=== PATIENT | female | born 1940 | race Caucasian/White ===

== ENCOUNTER → 2017-10-10 | Outpatient (CLI) | payer OTHER ==
[2012-10-21 08:24] VITALS: BP 161/84
--- NOTE | 2017-10-10 11:56 | MG ---
HISTORY: SCREENING Comparison: 10/04/2016 FINDINGS: Bilateral CC and MLO projections of the right and left breast were obtained. Scattered fibroglandula r tissue is seen to be present. No significant architectural distortion, mass or clustered microcalc ifications can be observed to suggest malignancy. No skin thickening or nipple retraction is appreci ated. No pathological lymphadenopathy can be identified. Benign-appearing calcifications scattered throughout the right and left breasts are observed. IMPRESSION: NO RADIOGRAPHIC EVIDENCE OF MALIGNANCY. ACR CATEGORY: 2 - benign findings. FOLLOW-UP EXAM 1 YEAR. Diagnostic CAD was utilized and reviewed. * 0 (ZERO) - ASSESSMENT INCOMPLETE; ADDITIONAL IMAGING IS NEEDED. * 1/ (ONE) - NEGATIVE. * 2/II (TWO) - BENIGN FINDINGS. * 3/III (THREE) - PROBABLY BENIGN FINDING; SHORT INTERVAL FOLLOW-UP SUGGESTED. * 4/IV (FOUR) - SUSPICIOUS ABNORMALITY; BIOPSY SHOULD BE CONSIDERED. * 5/V - HIGHLY SUSPICIOUS OF MALIGNANCY; BIOPSY SHOULD BE PERFORMED. A NEGATIVE X-RAY REPORT SHOULD NOT DELAY BIOPSY IF A DOMINANT OR CLINICALLY SUSPICIOUS MASS IS PRESENT; 4 TO 8 PERCENT OF CANCERS ARE NOT IDENTIFIED BY X-RAY. A NEGA TIVE REPORT MAY REINFORCE THE CLINICAL IMPRESSION. ADENOSIS AND DENSE BREASTS MAY OBSCURE AN UNDERLY ING NEOPLASM. Reported By:
== END ==
LOC: RAD 08:41
PROVIDERS: ATTEND Specialist
DX: Z12.31 Encounter for screening mammogram for malignant neoplasm of breast (principal)
CPT/HCPCS: 77067

== ENCOUNTER 2024-07-24 09:11 | Inpatient (IN) ==
--- NOTE | 2024-07-24 09:25 | DR.DIZZY ---
HPI Time seen Time Seen by Provider: 07/24/24 09:17 HPI Comment HPI Comment: Patient with complaint of feeling sick for the last week, some decreased appetite and tripped and fell yesterday landing on her left side. Patient states she had some mild hip pain in the area of her left buttock. Context Stroke Symptoms: None PMH PMH Past Medical History: Dyslipidemia and Hypertension Past Surgical History: Yes Surgical History: Hysterectomy Family History Family Medical History: Diabetes Mellitus, Cancer, [place], Coronary Artery Disease, Heart Failure, Sudden Cardiac and Hypertension Social History Do you use any recreational Drugs:: No ROS Review of Systems Constitutional: See HPI; negative Fever, Weakness or Fatigue Eyes: No Symptoms Reported ENTM: No Symptoms Reported Respiratoy: No Symptoms Reported Cardiovascular: No Symptoms Reported Gastrointestinal/Abdominal: No Symptoms Reported Genitourinary: No Symptoms Reported Neurological: No Symptoms Reported Musculoskeletal: See HPI Integumentary: No Symptoms Reported Hematologic/Lymphatic: No Symptoms Reported Endocrine: No Symptoms Reported Psychiatric: No Symptoms Reported All Other Systems: Reviewed and Negative PE Vital Signs Vitals: Vital Signs Temperature 98.1 F Pulse Rate 70 Pulse Rate 71 Pulse Rate 69 Pulse Rate 73 Pulse Rate 70 Pulse Rate 70 Pulse Rate 69 Pulse Rate 70 Pulse Rate 69 Pulse Rate 69 Pulse Rate 71 Pulse Rate 69 Pulse Rate 68 Pulse Rate 68 Pulse Rate 69 Pulse Rate 72 Pulse Rate 70 Pulse Rate 69 Pulse Rate 68 Pulse Rate 66 Pulse Rate 63 Pulse Rate 62 Pulse Rate 62 Pulse Rate 63 Pulse Rate 63 Pulse Rate 62 Pulse Rate 64 Pulse Rate 65 Pulse Rate 65 Pulse Rate 66 Pulse Rate 67 Pulse Rate 70 Pulse Rate 71 Respiratory Rate 20 Respiratory Rate 18 Blood Pressure 178/77 Blood Pressure 170/74 Blood Pressure 168/72 Blood Pressure 186/74 Blood Pressure 175/79 Blood Pressure 174/77 Blood Pressure 161/72 Blood Pressure 162/72 Blood Pressure 163/72 Blood Pressure 166/74 Blood Pressure 168/77 Blood Pressure 168/74 Blood Pressure 169/74 Blood Pressure 171/76 Blood Pressure 143/59 Blood Pressure 149/68 Blood Pressure 154/62 Blood Pressure 171/77 Blood Pressure 180/79 Blood Pressure 185/74 Blood Pressure 183/81 Blood Pressure 206/84 Blood Pressure 184/77 Blood Pressure 184/79 O2 Sat by Pulse Oximetry 94 O2 Sat by Pulse Oximetry 95 O2 Sat by Pulse Oximetry 95 O2 Sat by Pulse Oximetry 94 O2 Sat by Pulse Oximetry 94 O2 Sat by Pulse Oximetry 94 O2 Sat by Pulse Oximetry 94 O2 Sat by Pulse Oximetry 94 O2 Sat by Pulse Oximetry 95 O2 Sat by Pulse Oximetry 91 O2 Sat by Pulse Oximetry 96 O2 Sat by Pulse Oximetry 97 O2 Sat by Pulse Oximetry 96 O2 Sat by Pulse Oximetry 96 O2 Sat by Pulse Oximetry 95 O2 Sat by Pulse Oximetry 97 O2 Sat by Pulse Oximetry 97 O2 Sat by Pulse Oximetry 96 O2 Sat by Pulse Oximetry 95 O2 Sat by Pulse Oximetry 97 O2 Sat by Pulse Oximetry 97 O2 Sat by Pulse Oximetry 95 O2 Sat by Pulse Oximetry 96 O2 Sat by Pulse Oximetry 94 O2 Sat by Pulse Oximetry 95 O2 Sat by Pulse Oximetry 94 O2 Sat by Pulse Oximetry 96 O2 Sat by Pulse Oximetry 95 O2 Sat by Pulse Oximetry 93 O2 Sat by Pulse Oximetry 97 O2 Sat by Pulse Oximetry 88 O2 Sat by Pulse Oximetry 84 O2 Sat by Pulse Oximetry 83 General Limitations: No Limitations General Appearance: Alert and In No Apparent Distress Head Head Exam: Normal Inspection Eyes Eye exam: Normal Appearance ENT ENT Exam: Normal Exam, Normal Oropharynx and Normal External Ear Exam Neck Neck Exam: Normal Inspection and Full ROM Chest Chest Inspection: Normal Inspection Respiratory Respiratory Exam: Normal Lung Sounds Bilat Cardiovascular Cardiovascular Exam: Regular Rate and Normal Rhythm Abdominal Exam Abdominal Exam: Normal Inspection, Normal Bowel Sounds and Soft Rectal Rectal Exam: Deferred Extremeties Extremities Exam: Normal Inspection and Full ROM Back Back Exam: Normal Inspection and Full ROM Neurologic Neurological Exam: Alert and Oriented X3 Psychiatric Psychiatric Exam: Normal Affect and Normal Mood Skin Skin Exam: Warm, Dry, Intact and Normal Color ROR Labs Reviewed 07/24/24 09:40 07/24/24 09:40 Laboratory: WBC 7.0 X10^3/uL (3.6-10.0) 07/24/24 09:40 RBC 3.31 X10^6/uL (3.5-5.4) L 07/24/24 09:40 Hgb 13.5 g/dL (12.0-16.0) 07/24/24 09:40 Hct 38.1 % (36.0-47.0) 07/24/24 09:40 MCV 115.1 fL (80.0-100.0) H 07/24/24 09:40 MCH 40.7 pg (27.0-34.0) H 07/24/24 09:40 MCHC 35.4 g/dL (33.0-35.0) H 07/24/24 09:40 RDW 15.3 % (11.6-16.5) 07/24/24 09:40 Plt Count 266 X10^3/uL (150.0-450.0) 07/24/24 09:40 Plt Count Comment Adequate (ADEQUATE) 07/24/24 09:40 MPV 7.4 fL (7.4-11.0) 07/24/24 09:40 Neut % (Auto) 79.7 % (42.0-75.0) H 07/24/24 09:40 Lymph % (Auto) 8.8 % (21.0-51.0) L 07/24/24 09:40 [place] % (Auto) 9.0 % (0.0-13.0) 07/24/24 09:40 Eos % (Auto) 1.5 % (0.9-2.9) 07/24/24 09:40 Baso % (Auto) 1.0 % (0.2-1.0) 07/24/24 09:40 Neut # (Auto) 5.6 x10^3/uL (2.2-4.8) H 07/24/24 09:40 Lymph # (Auto) 0.6 X10^3/uL (1.3-2.9) L 07/24/24 09:40 [place] # (Auto) 0.6 x10^3/uL (0.3-0.8) 07/24/24 09:40 Eos # (Auto) 0.1 x10^3/uL (0.0-0.2) 07/24/24 09:40 Baso # (Auto) 0.1 X10^3/uL (0.0-0.1) 07/24/24 09:40 Absolute Nucleated RBC 0.2 /100WBC 07/24/24 09:40 Plt Morphology Comment Normal (NORMAL) 07/24/24 09:40 RBC Morphology Abnormal (NORMAL) A 07/24/24 09:40 Macrocytosis 3+ A 07/24/24 09:40 D-Dimer 3.57 ug/ml (0.0-0.57) H 07/24/24 09:40 Sample Site Rrad 07/24/24 09:29 ABG pH 7.450 (7.35-7.45) 07/24/24 09:29 ABG pCO2 27.0 mmHg (35.0-45.0) L 07/24/24 09: ABG pO2 43.0 mmHg (80.0-100.0) L* 07/24/24 09:29 ABG HCO3 18.8 mmol/L (22-26) L 07/24/24 09:29 ABG O2 Saturation 81.0 % (90-100) L* 07/24/24 09: ABG Base Excess -3.9 mmol/L (-2.0-2.0) L 07/24/24 09: Richie Test Pos 07/24/24 09: A-a Gradient 73.0 mmHg 07/24/24 09: FiO2 21.0 07/24/24 09:29 Blood Gas Comments Pt adrianna well. kg 07/24/24 09:29 Sodium 138 mmol/L (136-145) 07/24/24 09:40 Corrected Sodium 138 mmol/L (136-145) 07/24/24 09:40 Potassium 3.2 mmol/L (3.5-5.1) L 07/24/24 09:40 Chloride 104 mmol/L (98-107) 07/24/24 09:40 Carbon Dioxide 19.4 mmol/L (21-32) L 07/24/24 09:40 BUN 15 mg/dL (7-18) 07/24/24 09:40 Creatinine 0.96 mg/dL (0.55-1.02) 07/24/24 09:40 Est GFR (MDRD) Af Amer > 60 (>60) 07/24/24 09:40 Est GFR (MDRD) Non-Af 59 (>60) 07/24/24 09:40 Glucose 113 mg/dL (65-99) H 07/24/24 09:40 Lactic Acid 0.5 mmol/L (0.4-2.0) 07/24/24 14:23 Calcium 9.3 mg/dL (8.5-10.1) 07/24/24 09:40 Corrected Calcium TNP 07/24/24 09:40 Magnesium 1.8 mg/dL (2.0-2.9) L 07/24/24 09:40 Total Bilirubin 0.80 mg/dL (0.2-1.0) 07/24/24 09:40 AST 23 Units/L (15-37) 07/24/24 09:40 ALT 8 Units/L (12-78) L 07/24/24 09:40 Alkaline Phosphatase 113 Units/L (46-116) 07/24/24 09:40 Total Protein 7.6 g/dL (6.4-8.2) 07/24/24 09:40 Albumin 3.5 g/dL (3.4-5.0) 07/24/24 09:40 Globulin 4.1 g/dL (2.5-4.5) 07/24/24 09:40 Albumin/Globulin Ratio 0.9 Ratio (1.1-2.1) L 07/24/24 09:40 Amylase 20 Units/L (25-115) L 07/24/24 09:40 Lipase 38 Units/L (16-77) 07/24/24 09:40 Specimen Type Clean catch urine 07/24/24 12:09 Urine Color Yellow (YELLOW) 07/24/24 12:09 Urine Appearance Clear (CLEAR) 07/24/24 12:09 Urine pH 6.0 (5.0 - 8.0) 07/24/24 12:09 Ur Specific [place] 1.010 (1.000-1.030) 07/24/24 12:09 Urine Protein 2+ (NEGATIVE) 07/24/24 12:09 Urine Glucose (UA) Negative (NEGATIVE) 07/24/24 12:09 Urine Ketones Negative (NEGATIVE) 07/24/24 12:09 Urine Blood Negative (NEGATIVE) 07/24/24 12:09 Urine Nitrite Negative (NEGATIVE) 07/24/24 12:09 Urine Bilirubin Negative (NEGATIVE) 07/24/24 12:09 Urine Urobilinogen Normal (NORMAL) 07/24/24 12:09 Ur Leukocyte Esterase 1+ (NEGATIVE) 07/24/24 12:09 Urine RBC None seen /HPF (0-3) 07/24/24 12:09 Urine WBC 0-2 /HPF (0-5) 07/24/24 12:09 Ur Squamous Epith Cells Rare /HPF (NEGATIVE) 07/24/24 12:09 Urine Bacteria Negative /HPF (NEGATIVE) 07/24/24 12:09 Ur Culture Indicated? No/not indicated 07/24/24 12:09 Opioid Opioid Risk Tool Age (Sebastian box if 16-45): No History of Preadolescent Sexual Abuse: No Total: 0 Total Score Risk Category: Low Risk Copyright: Nicola CLINE predicting aberrant behaviors Discharge Plan Diagnosis Discharge Problem: Pneumonia, Hypoxia, Hypomagnesemia Discharge Plan Patient Disposition: ADMITTED INPATIENT Condition: Stable Prescriptions: No Action gemfibrozil 600 MG tablet 600 mg PO BID hydroxyurea 500 mg capsule 500 mg PO BID bisoprolol-hydrochlorothiazide 10-6.25 mg tablet 1 tab PO QDAY ondansetron HCl 4 mg tablet 4 mg PO Q8H PRN Rx Instructions: TAKE 30 MINUTES PRIOR TO GEMFIBROZIL amitriptyline 50 mg tablet 50 mg PO QPM lorazepam 0.5 mg tablet 0.5 mg PO TID PRN Rx Instructions: TAKE 30 MINUTES PRIOR TO GEMFIBROZIL amlodipine 10 mg tablet 10 mg PO QDAY nitrofurantoin monohyd/m-cryst 100 mg capsule 100 mg PO DAILY simvastatin 40 mg tablet 40 mg PO QPM pantoprazole 40 mg tablet,delayed release (DR/EC) 40 mg PO QDAY Health Concerns: Post Hospitalization: new medications and changes needed to prevent readmission or further decline. Pt educated and given instructions on all concerns. Plan of Treatment: Continue with present treatment and follow up plan. Pt is to keep follow up appointment as instructed and take medications as ordered. Orders to Discharge Patient Discharge Orders: Transfer (Routine); Ordered 07/24/24 Ordered By: Miki Mayo Instructions Stand Alone Forms: Post Hospital Follow Up Care
[2024-07-24 09:31] VITALS: BMI 24.2
[2024-07-24 09:34] LABS: ABG BASE EXCESS -3.9 mmol/L (-2.0-2.0); ABG HCO3 18.8 mmol/L (22-26)
[2024-07-24 09:36] LABS: ABG ALLEN TEST Pos
[2024-07-24] MEDS: ZOFRAN INJ 4 MG VIAL IVP ONE ×2 (09:48→16:37)
[2024-07-24 10:01] LABS: BASOPHILS # (AUTO) 0.1 X10^3/uL (0.0-0.1); EOSINOPHILS # (AUTO) 0.1 x10^3/uL (0.0-0.2); EOSINOPHILS % (AUTO) 1.5 % (0.9-2.9); HEMATOCRIT 38.1 % (36.0-47.0); HEMOGLOBIN 13.5 g/dL (12.0-16.0); LYMPHOCYTES # (AUTO) 0.6 X10^3/uL (1.3-2.9); LYMPHOCYTES % (AUTO) 8.8 % (21.0-51.0); MEAN CORPUSCULAR HEMOGLOBIN 40.7 pg (27.0-34.0); MEAN CORPUSCULAR HGB CONC 35.4 g/dL (33.0-35.0); MEAN CORPUSCULAR VOLUME 115.1 fL (80.0-100.0); MEAN PLATELET VOLUME 7.4 fL (7.4-11.0); MONOCYTES # (AUTO) 0.6 x10^3/uL (0.3-0.8); NEUTROPHILS # (AUTO) 5.6 x10^3/uL (2.2-4.8); NEUTROPHILS % (AUTO) 79.7 % (42.0-75.0); PLATELET COUNT 266 X10^3/uL (150.0-450.0); RED BLOOD COUNT 3.31 X10^6/uL (3.5-5.4); RED CELL DISTRIBUTION WIDTH 15.3 % (11.6-16.5)
[2024-07-24 10:06] LABS: PLATELET MORPHOLOGY COMMENT NORMAL (NORMAL)
[2024-07-24 10:09] LABS: BLOOD UREA NITROGEN 15 mg/dL (7-18); CALCIUM 9.3 mg/dL (8.5-10.1); CARBON DIOXIDE 19.4 mmol/L (21-32); CHLORIDE 104 mmol/L (98-107); COR NA(FOR HYPERGLY) 138 mmol/L (136-145); CREATININE 0.96 mg/dL (0.55-1.02); GLUCOSE 113 mg/dL (65-99); POTASSIUM 3.2 mmol/L (3.5-5.1); SODIUM 138 mmol/L (136-145); eGFR NON BLACK RACES 59 (>60)
[2024-07-24 10:25] LABS: ALBUMIN 3.5 g/dL (3.4-5.0); ALKALINE PHOSPHATASE 113 Units/L (46-116); AMYLASE 20 Units/L (25-115); ASPARTATE AMINO TRANSFERASE 23 Units/L (15-37); LIPASE 38 Units/L (16-77); TOTAL PROTEIN 7.6 g/dL (6.4-8.2)
[2024-07-24 10:35] LABS: ALANINE AMINOTRANSFERASE 8 Units/L (12-78); MAGNESIUM 1.8 mg/dL (2.0-2.9)
[2024-07-24] MEDS: APRESOLINE INJ 20 MG VIAL IVP ONE (10:49)
[2024-07-24] MEDS: MAG-OX TAB PO ONE ×2 (12:02→20:57)
[2024-07-24] MEDS: K-DUR TAB 20 MEQ PO ONE ×3 (12:02→20:58)
[2024-07-24 12:42] LABS: BILIRUBIN,URINE NEGATIVE (NEGATIVE); BLOOD/HEMOGLOBIN,URINE NEGATIVE (NEGATIVE); GLUCOSE, URINE NEGATIVE (NEGATIVE); KETONES,URINE NEGATIVE (NEGATIVE); LEUKOCYTE ESTERASE ,URINE 1+ (NEGATIVE); NITRITES,URINE NEGATIVE (NEGATIVE); PROTEIN,URINE 2+ (NEGATIVE); UROBILINOGEN,URINE NORMAL (NORMAL)
[2024-07-24 12:45] LABS: APPEARANCE,URINE CLEAR (CLEAR); COLOR,URINE YELLOW (YELLOW)
[2024-07-24 13:00] LABS: BACTERIA,URINE NEGATIVE /HPF (NEGATIVE); RBC,URINE NONE SEEN /HPF (0-3); SQUAMOUS EPITHELIAL CELL,UR RARE /HPF (NEGATIVE)
--- NOTE | 2024-07-24 13:15 | RAD ---
EXAM: HIP, LEFT two-view HISTORY: S/P FALL, C/O LEFT HIP PAIN ; COMPARISON: None FINDINGS: The visualized pelvic ring is intact. No acute fracture or dislocation of the hip. No significant hip arthrosis. IMPRESSION: No acute fracture or dislocation. THIS IS AN ELECTRONICALLY VERIFIED FINAL REPORT 07/24/2024 1:11 PM - Electronically signed by Stephen Gilman MD
--- NOTE | 2024-07-24 13:31 | RAD ---
EXAM:PELVISHISTORY:S/P FALL, C/O LEFT HIP PAIN ;COMPARISON:Left hip same dayFINDINGS:The pelvic ring appears intact. The SI joints are symmetric. The visualized portions of the right and left hip are intact. No significant soft tissue abnormality.IMPRESSION:No acute fracture.THIS IS AN ELECTRONICALLY VERIFIED FINAL [id number]/24/2024 1:27 PM - Electronically signed by Stephen Gilman MD
--- NOTE | 2024-07-24 13:33 | RAD ---
EXAM:CHEST, 1 VIEWHISTORY:HYPOXIA;COMPARISON:None FINDINGS:The cardiomediastinal silhouette is normal in size.Right upper lobe airspace opacities. Nonspecific left lower lobe nodularity. No pneumothorax or effusion.No acute osseous abnormality.IMPRESSION:Airspace opacities which may reflect pneumonia. Recommend follow-up to resolution.THIS IS AN ELECTRONICALLY VERIFIED FINAL [id number]/24/2024 1:30 PM - Electronically signed by Stephen Gilman MD
[2024-07-24] MEDS: LEVAQUIN PREMIX IV 750 MG 750 MG/150 ML BAG IV ONE (14:41)
--- NOTE | 2024-07-24 16:31 | CT ---
EXAM: CTA, CHEST HISTORY: DYSPNEA, ELEV. D-DIMER; COMPARISON: None. TECHNIQUE: Following the intravenous administration of iodinated contrast, spiral CT imaging was performed throu gh the chest and axial, coronal, and sagittal CT images were generated. Multi planar 3D MIP images we re also generated. FINDINGS: Heart size is grossly normal. The main pulmonary artery measures 3.6 cm in diameter and this indicat es pulmonary artery hypertension. There is excellent enhancement in the pulmonary circulation and no pulmonary embolus. The ascending aorta measures 3.7 cm in diameter. There are reactive sized media stinal lymph nodes. There is non-specific enlargement of the right thyroid lobe suggestive of a goit er. The airways are grossly clear. There is interstitial prominence throughout the lungs suggestive of edema or interstitial lung disease as well as some stranding suggestive of atelectasis or scarrin g. There are small bilateral pleural effusions. There are 2 non-specific low-density liver lesions with the largest in the right hepatic lobe measuring up to 3.0 cm. The gallbladder is distended and there is questionably some stone material in the gallbladder. Spleen is normal. IMPRESSION: 1. Negative for pulmonary embolus although there is pulmonary artery hypertension. 2. Non-specific interstitial opacity and basilar stranding suggestive of mixed edema and atelectasis with small pleural effusions. 3. 2 non-specific low-density liver lesions. Consider correlation with a ultrasound. 4. Questionable cholelithiasis. THIS IS AN ELECTRONICALLY VERIFIED FINAL REPORT 07/24/2024 4:28 PM - Electronically signed by Cooper Balderrama MD
[2024-07-24] MEDS: TORADOL 30 MG VIAL IVP ONE (16:38)
[2024-07-24] MEDS ORDERED: CONSULT PHARMACY - POTASSIUM & MAGNESIUM XX SCH (18:00)
[2024-07-24] MEDS: MAG-OX TAB ONE (18:09)
[2024-07-24] MEDS: OMNIPAQUE 350 mg/mL 100 mL BTL 100 ML ONE (18:10)
[2024-07-24] MEDS: NS 1,000 ML IV 1,000 ML IV SCH (18:27)
[2024-07-24] MEDS: PULMICORT NEB TX 0.5 MG NEB SCH (19:38)
[2024-07-24] MEDS: DUONEB 0.5 MG/3 MG (3 mL) NEB SCH (19:39)
[2024-07-24] MEDS: ZOCOR TAB 40 MG PO SCH (21:34)
[2024-07-24] MEDS: ELAVIL PO SCH (21:34)
[2024-07-24] MEDS: HYDREA PO SCH (21:38)
[2024-07-24] MEDS: MACRODANTIN 50 MG CAP PO SCH (21:40)
[2024-07-25] MEDS: LOPID PO SCH (05:36)
[2024-07-25 05:40] LABS: HEMOGLOBIN 11.5 g/dL (12.0-16.0); RED CELL DISTRIBUTION WIDTH 15.3 % (11.6-16.5); WHITE BLOOD COUNT 5.7 X10^3/uL (3.6-10.0)
[2024-07-25 05:48] LABS: BASOPHILS % (AUTO) 0.7 % (0.2-1.0); EOSINOPHILS # (AUTO) 0.1 x10^3/uL (0.0-0.2); EOSINOPHILS % (AUTO) 2.3 % (0.9-2.9); HEMATOCRIT 32.8 % (36.0-47.0); LYMPHOCYTES # (AUTO) 0.5 X10^3/uL (1.3-2.9); LYMPHOCYTES % (AUTO) 8.2 % (21.0-51.0); MEAN CORPUSCULAR HEMOGLOBIN 40.7 pg (27.0-34.0); MEAN CORPUSCULAR VOLUME 116.3 fL (80.0-100.0); MEAN PLATELET VOLUME 7.6 fL (7.4-11.0); MONOCYTES # (AUTO) 0.5 x10^3/uL (0.3-0.8); MONOCYTES % (AUTO) 8.8 % (0.0-13.0); NEUTROPHILS # (AUTO) 4.6 x10^3/uL (2.2-4.8); PLATELET COUNT 230 X10^3/uL (150.0-450.0); RED BLOOD COUNT 2.82 X10^6/uL (3.5-5.4)
[2024-07-25 05:52] LABS: ALANINE AMINOTRANSFERASE 9 Units/L (12-78); ALBUMIN 2.8 g/dL (3.4-5.0); ALKALINE PHOSPHATASE 90 Units/L (46-116); ASPARTATE AMINO TRANSFERASE 16 Units/L (15-37); BLOOD UREA NITROGEN 14 mg/dL (7-18); CALCIUM 8.3 mg/dL (8.5-10.1); CARBON DIOXIDE 18.9 mmol/L (21-32); CHLORIDE 110 mmol/L (98-107); COR CA(FOR HYPOALB) 9.3 mg/dL (8.5-10.1); CREATININE 0.92 mg/dL (0.55-1.02); GLUCOSE 85 mg/dL (65-99); POTASSIUM 3.9 mmol/L (3.5-5.1); SODIUM 142 mmol/L (136-145); TOTAL PROTEIN 6.3 g/dL (6.4-8.2); eGFR NON BLACK RACES > 60 (>60)
[2024-07-25 07:22] LABS: PLATELET MORPHOLOGY COMMENT NORMAL (NORMAL)
[2024-07-25] MEDS ORDERED: CONSULT PHARMACY - POTASSIUM & MAGNESIUM XX SCH (08:00)
[2024-07-25] MEDS: MAG-OX TAB PO SCH (08:29)
[2024-07-25] MEDS: ULTRAM PO PRN (08:29)
[2024-07-25] MEDS: ZEBETA TAB 5 MG PO SCH (08:30)
[2024-07-25] MEDS: PROTONIX TAB 40 MG PO SCH (08:30)
[2024-07-25] MEDS: NORVASC TAB 10 MG PO SCH (08:30)
[2024-07-25] MEDS: ZOFRAN TAB 4 MG PO PRN (08:30)
[2024-07-25] MEDS: HYDROCHLOROTHIAZIDE 25 MG TAB PO SCH (08:31)
[2024-07-25] MEDS: LEVAQUIN PREMIX IV 750 MG 750 MG/150 ML BAG IV SCH (08:31)
[2024-07-25] MEDS ORDERED: PATIENT'S HOME MEDICATION PO SCH (09:00)
[2024-07-25] MEDS: NORCO 5/325 MG TAB PO PRN (09:35)
--- NOTE | 2024-07-25 10:21 | DR.H&P ---
H&P History & Physical for Day of: H&P Date: 07/25/24 Chief Complaint Chief Complaint: sob, weakness, poor oral intake History of Present Illness History of Present Illness: Ms Stein is a 84y/o female with a PMH of HTN , HLD, GERD and polycythemia vera presents with weakness, SOB and poor oral intake. She has been sick for about a week. She also had some nausea. She had a fall yesterday. ER work up showed ABG with hypoxia, no acute fracture, UA neg. CXR concerning for pneumonia. D-dimer was elevated so CTA was done which was neg for PE, did show opacity, bibasilar stranding along with pleural effusions. Flu/COVID neg. She was started on IV fluids and antibiotics. She is currently on 4L NC. She reports dry cough. CTA also showed Cholelithiasis. Patient reports seeing surgeon in [place] 3 months ago and had US done. She was told she does not need gallbladder surgery at this time. Denies abdominal pain. Labs/imaging reviewed: -WBC 5.7 Hgb 11.5 K 3.9 BUN/Cr 14/0.92 D-dimer 3.57 -AB.45/27/43/18 -CXR and CTA reviewed Plan: continue to monitor on med-surg. Wean O2 as tolerated to keep sats > 90%, continue nebs, pulmicort. Continue IS. Continue hydration and IV antibiotics. Follow AIT results and pending cultures. Resume home medications. Replace electrolytes as needed. PT/OT as tolerated. Monitor AM labs/imaging. Past Medical History Past Medical History: Dyslipidemia and Hypertension Past Surgical History Surgical History: Hysterectomy Family History Family Medical History: Cancer and Heart Failure Social History Does patient currently use any type of tobacco product: No Have you used tobacco products in the last 12 months: No Type of Tobacco Use: None Does any household member use tobacco: No Alcohol Use: None Drug Use: None Medications Home Medications: Home Medications Medication Instructions Recorded Confirmed Type gemfibrozil 600 mg tablet 600 mg PO BID 10/21/12 07/24/24 History amitriptyline 50 mg tablet 50 mg PO QPM 05/07/23 07/24/24 History amlodipine 10 mg tablet 10 mg PO QDAY 05/07/23 07/24/24 History bisoprolol 10 1 tab PO QDAY 05/07/23 07/24/24 History mg-hydrochlorothiazide 6.25 mg tablet hydroxyurea 500 mg capsule 500 mg PO BID 05/07/23 07/24/24 History lorazepam 0.5 mg tablet 0.5 mg PO TID PRN 05/07/23 07/24/24 History nitrofurantoin 100 mg PO DAILY 05/07/23 07/24/24 History monohydrate/macrocrystals 100 mg capsule ondansetron HCl 4 mg tablet 4 mg PO Q8H PRN 05/07/23 07/24/24 History pantoprazole 40 mg tablet,delayed 40 mg PO QDAY 07/24/24 07/24/24 History release simvastatin 40 mg tablet 40 mg PO QPM 07/24/24 07/24/24 History Allergies Allergies Allergy/AdvReac Type Severity Reaction Status Date / Time Sulfa (Sulfonamide Allergy Verified 05/07/23 19:35 Antibiotics) [SULFA] Labs 07/25/24 05:25 07/25/24 05:25 Labs: Laboratory WBC 5.7 X10^3/uL (3.6-10.0) 07/25/24 05:25 RBC 2.82 X10^6/uL (3.5-5.4) L 07/25/24 05:25 Hgb 11.5 g/dL (12.0-16.0) L D 07/25/24 05:25 Hct 32.8 % (36.0-47.0) L 07/25/24 05:25 MCV 116.3 fL (80.0-100.0) H 07/25/24 05:25 MCH 40.7 pg (27.0-34.0) H 07/25/24 05:25 MCHC 35.0 g/dL (33.0-35.0) 07/25/24 05:25 RDW 15.3 % (11.6-16.5) 07/25/24 05:25 Plt Count 230 X10^3/uL (150.0-450.0) 07/25/24 05:25 Plt Count Comment Adequate (ADEQUATE) 07/25/24 05:25 MPV 7.6 fL (7.4-11.0) 07/25/24 05:25 Neut % (Auto) 80.0 % (42.0-75.0) H 07/25/24 05:25 Lymph % (Auto) 8.2 % (21.0-51.0) L 07/25/24 05:25 [place] % (Auto) 8.8 % (0.0-13.0) 07/25/24 05:25 Eos % (Auto) 2.3 % (0.9-2.9) 07/25/24 05:25 Baso % (Auto) 0.7 % (0.2-1.0) 07/25/24 05:25 Neut # (Auto) 4.6 x10^3/uL (2.2-4.8) 07/25/24 05:25 Lymph # (Auto) 0.5 X10^3/uL (1.3-2.9) L 07/25/24 05:25 [place] # (Auto) 0.5 x10^3/uL (0.3-0.8) 07/25/24 05:25 Eos # (Auto) 0.1 x10^3/uL (0.0-0.2) 07/25/24 05:25 Baso # (Auto) 0.0 X10^3/uL (0.0-0.1) 07/25/24 05:25 Absolute Nucleated RBC 0.1 /100WBC 07/25/24 05:25 Plt Morphology Comment Normal (NORMAL) 07/25/24 05:25 RBC Morphology Abnormal (NORMAL) A 07/25/24 05:25 Macrocytosis 2+ A 07/25/24 05:25 D-Dimer 3.57 ug/ml (0.0-0.57) H 07/24/24 09:40 Sample Site Rrad 07/24/24 09:29 ABG pH 7.450 (7.35-7.45) 07/24/24 09:29 ABG pCO2 27.0 mmHg (35.0-45.0) L 07/24/24 09:29 ABG pO2 43.0 mmHg (80.0-100.0) L* 07/24/24 09:29 ABG HCO3 18.8 mmol/L (22-26) L 07/24/24 09:29 ABG O2 Saturation 81.0 % (90-100) L* 07/24/24 09:29 ABG Base Excess -3.9 mmol/L (-2.0-2.0) L 07/24/24 09:29 Richie Test Pos 07/24/24 09:29 A-a Gradient 73.0 mmHg 07/24/24 09:29 FiO2 21.0 07/24/24 09:29 Blood Gas Comments Pt adrianna well. kg 07/24/24 09:29 Sodium 142 mmol/L (136-145) 07/25/24 05:25 Corrected Sodium TNP 07/25/24 05:25 Potassium 3.9 mmol/L (3.5-5.1) 07/25/24 05:25 Chloride 110 mmol/L (98-107) H 07/25/24 05:25 Carbon Dioxide 18.9 mmol/L (21-32) L 07/25/24 05:25 BUN 14 mg/dL (7-18) 07/25/24 05:25 Creatinine 0.92 mg/dL (0.55-1.02) 07/25/24 05:25 Est GFR (MDRD) Af Amer > 60 (>60) 07/25/24 05:25 Est GFR (MDRD) Non-Af > 60 (>60) 07/25/24 05:25 Glucose 85 mg/dL (65-99) 07/25/24 05:25 Lactic Acid 0.5 mmol/L (0.4-2.0) 07/24/24 14:23 Calcium 8.3 mg/dL (8.5-10.1) L 07/25/24 05:25 Corrected Calcium 9.3 mg/dL (8.5-10.1) 07/25/24 05:25 Magnesium 1.9 mg/dL (2.0-2.9) L 07/25/24 05:25 Total Bilirubin 0.70 mg/dL (0.2-1.0) 07/25/24 05:25 AST 16 Units/L (15-37) 07/25/24 05:25 ALT 9 Units/L (12-78) L 07/25/24 05:25 Alkaline Phosphatase 90 Units/L (46-116) 07/25/24 05:25 Total Protein 6.3 g/dL (6.4-8.2) L 07/25/24 05:25 Albumin 2.8 g/dL (3.4-5.0) L 07/25/24 05:25 Globulin 3.5 g/dL (2.5-4.5) 07/25/24 05:25 Albumin/Globulin Ratio 0.8 Ratio (1.1-2.1) L 07/25/24 05:25 Amylase 20 Units/L (25-115) L 07/24/24 09:40 Lipase 38 Units/L (16-77) 07/24/24 09:40 Specimen Type Clean catch urine 07/24/24 12:09 Urine Color Yellow (YELLOW) 07/24/24 12:09 Urine Appearance Clear (CLEAR) 07/24/24 12:09 Urine pH 6.0 (5.0 - 8.0) 07/24/24 12:09 Ur Specific [place] 1.010 (1.000-1.030) 07/24/24 12:09 Urine Protein 2+ (NEGATIVE) 07/24/24 12:09 Urine Glucose (UA) Negative (NEGATIVE) 07/24/24 12:09 Urine Ketones Negative (NEGATIVE) 07/24/24 12:09 Urine Blood Negative (NEGATIVE) 07/24/24 12:09 Urine Nitrite Negative (NEGATIVE) 07/24/24 12:09 Urine Bilirubin Negative (NEGATIVE) 07/24/24 12:09 Urine Urobilinogen Normal (NORMAL) 07/24/24 12:09 Ur Leukocyte Esterase 1+ (NEGATIVE) 07/24/24 12:09 Urine RBC None seen /HPF (0-3) 07/24/24 12:09 Urine WBC 0-2 /HPF (0-5) 07/24/24 12:09 Ur Squamous Epith Cells Rare /HPF (NEGATIVE) 07/24/24 12:09 Urine Bacteria Negative /HPF (NEGATIVE) 07/24/24 12:09 Ur Culture Indicated? No/not indicated 07/24/24 12:09 SARS-CoV-2 (PCR) Negative (NEGATIVE) 07/24/24 18:15 Influenza Type A (PCR) Negative (NEGATIVE) 07/24/24 18:15 Influenza Type B (PCR) Negative (NEGATIVE) 07/24/24 18:15 RSV (PCR) Negative (NEGATIVE) 07/24/24 18:15 Review of Systems Constitutional: Weakness Eyes: No Symptoms Reported ENT: No Symptoms Reported Respiratory: Cough and Shortness of Breath Cardiovascular: Edema Gastrointestinal: Nausea Genitourinary: No Symptoms Reported Musculoskeletal: Leg Pain Skin: No Symptoms Reported Neurological: No Symptoms Reported Physical Exam Vital Signs: Vital Signs Temperature 98.6 F Pulse Rate [Left Brachial] 78 Respiratory Rate 22 Respiratory Rate 22 Respiratory Rate 22 Blood Pressure [Left Arm] 170/72 Blood Pressure [Left Arm] 180/75 O2 Sat by Pulse Oximetry 94 Oriented: Normal Eyes: Normal Throat: Normal Respiratory: Diminished Throughout Cardiovascular: Normal and Edema Auscultation: Bowel Sounds: Normal Palpation: Normal Tenderness: Normal Skin: Normal Musculoskeletal: Hip and Leg Psychiatric: Normal Mood Description: Calm Affect: Normal Speech Pattern: Clear and Appropriate Assessment/Plan (1) Pneumonia: Qualifiers: Pneumonia type: due to unspecified organism Laterality: bilateral Lung location: unspecified part of lung Qualified Code(s): J18.9 - Pneumonia, unspecified organism Status: Acute (2) Acute respiratory failure: Qualifiers: Respiratory failure complication: hypoxia Qualified Code(s): J96.01 - Acute respiratory failure with hypoxia Status: Acute (3) Generalized weakness: Status: Acute (4) Polycythemia vera: Status: Acute (5) Anemia: Qualifiers: Anemia type: unspecified type Qualified Code(s): D64.9 - Anemia, unspecified Status: Acute (6) HTN (hypertension): Qualifiers: Hypertension type: primary hypertension Qualified Code(s): I10 - Essential (primary) hypertension Status: Acute
[2024-07-25] MEDS: ZOFRAN INJ 4 MG VIAL IVP PRN ×2 (11:59→18:10)
[2024-07-25] MEDS: ZOFRAN INJ 4 MG VIAL ONE (12:08)
[2024-07-25] MEDS: NORCO 5/325 MG TAB ONE (12:09)
[2024-07-25] MEDS: ATIVAN TAB 0.5 MG PO PRN (15:00)
--- NOTE | 2024-07-25 16:56 | US ---
EXAM: GALL BLADDER HISTORY: N/V, ABD PAIN; COMPARISON: CTA chest from July 24, 2024 TECHNIQUE: Grayscale and color Doppler transabdominal images were reviewed. FINDINGS: Liver: Normal echogenicity. Simple hepatic cyst in the right hepatic lobe measuring 2.8 x 2.1 cm.. R ight hepatic lobe measures 12.7 cm. Portal vein is patent with hepatopetal flow. Hepatic artery is patent. Hepatic vein is patent with hepatofugal flow. Gallbladder: No echogenic stones or sludge in the gallbladder lumen. Hydropic gallbladder. Gallbladder wall: 0.13 cm Common bile duct: 0.27 cm Right kidney: measures: 10 x 5 x 4.1 cm. Cortex measures 1.5cm. Nonobstructing 3 x 2 mm lower pole right nephrolith. Unremarkable appearance of the parenchyma. Resistive index 1.5 Pancreas: Obscured by overlying bowel gas. IVC: Unremarkable. IMPRESSION: 1. Hydropic gallbladder with no imaging findings of acute cholecystitis. 2. 2 x 3 mm nonobstructing right nephrolith. THIS IS AN ELECTRONICALLY VERIFIED FINAL REPORT 07/25/2024 4:47 PM - Electronically signed by Wil Casanova MD
[2024-07-25] MEDS: MACROBID CAP 100 MG EXT REL PO SCH (20:29)
[2024-07-25] MEDS: RESTORIL CAP 15 MG PO PRN (20:30)
[2024-07-25] MEDS ORDERED: LEVAQUIN TAB 750 MG PO SCH (21:00)
[2024-07-25] MEDS: DUONEB 0.5 MG/3 MG (3 mL) NEB ONE (21:46)
[2024-07-25] MEDS: PULMICORT NEB TX 0.5 MG NEB ONE (21:46)
[2024-07-26 05:50] LABS: BASOPHILS % (AUTO) 0.6 % (0.2-1.0); EOSINOPHILS # (AUTO) 0.1 x10^3/uL (0.0-0.2); EOSINOPHILS % (AUTO) 2.1 % (0.9-2.9); HEMATOCRIT 31.4 % (36.0-47.0); HEMOGLOBIN 11.1 g/dL (12.0-16.0); LYMPHOCYTES # (AUTO) 0.4 X10^3/uL (1.3-2.9); LYMPHOCYTES % (AUTO) 6.8 % (21.0-51.0); MEAN CORPUSCULAR HEMOGLOBIN 40.9 pg (27.0-34.0); MEAN CORPUSCULAR HGB CONC 35.2 g/dL (33.0-35.0); MEAN CORPUSCULAR VOLUME 116.2 fL (80.0-100.0); MEAN PLATELET VOLUME 7.5 fL (7.4-11.0); MONOCYTES # (AUTO) 0.6 x10^3/uL (0.3-0.8); MONOCYTES % (AUTO) 9.6 % (0.0-13.0); NEUTROPHILS # (AUTO) 4.9 x10^3/uL (2.2-4.8); NEUTROPHILS % (AUTO) 80.9 % (42.0-75.0); PLATELET COUNT 200 X10^3/uL (150.0-450.0); RED BLOOD COUNT 2.71 X10^6/uL (3.5-5.4); RED CELL DISTRIBUTION WIDTH 15.1 % (11.6-16.5)
--- NOTE | 2024-07-26 05:54 | RAD ---
EXAM:CHEST, 1 VIEWHISTORY:PNEUMONIA ; HTNCOMPARISON:07/24/2024FINDINGS:The trachea is midline. The cardiac silhouette is unremarkable. Mild elevation of the right hemidiaphragm. The lungs are clear without focal infiltrate or effusion. The bony thorax is unremarkable.IMPRESSION:No acute cardiopulmonary disease.THIS IS AN ELECTRONICALLY VERIFIED FINAL LTUKWC4907/26/2024 5:51 AM - Electronically signed by Rolando Peralta MD
[2024-07-26 06:07] LABS: ALANINE AMINOTRANSFERASE 7 Units/L (12-78); ALBUMIN 2.9 g/dL (3.4-5.0); ALKALINE PHOSPHATASE 88 Units/L (46-116); ASPARTATE AMINO TRANSFERASE 14 Units/L (15-37); BLOOD UREA NITROGEN 14 mg/dL (7-18); CALCIUM 8.7 mg/dL (8.5-10.1); CARBON DIOXIDE 17.9 mmol/L (21-32); CHLORIDE 107 mmol/L (98-107); COR CA(FOR HYPOALB) 9.6 mg/dL (8.5-10.1); CREATININE 0.79 mg/dL (0.55-1.02); GLUCOSE 85 mg/dL (65-99); POTASSIUM 4.2 mmol/L (3.5-5.1); SODIUM 138 mmol/L (136-145); TOTAL PROTEIN 6.4 g/dL (6.4-8.2); eGFR NON BLACK RACES > 60 (>60)
[2024-07-26 08:08] LABS: PLATELET MORPHOLOGY COMMENT NORMAL (NORMAL)
--- NOTE | 2024-07-26 09:28 | EKG ---
Test Reason : hypoxia Blood Pressure : */* mmHG Vent. Rate : 80 BPM Atrial Rate : 80 BPM P-R Int : 150 ms QRS Dur : 94 ms QT Int : 414 ms P-R-T Axes : 29 -21 40 degrees QTc Int : 477 ms Normal sinus rhythm Minimal voltage criteria for LVH, may be normal variant ( Kushal product ) Inferior infarct , age undetermined Abnormal ECG No previous ECGs available Confirmed by Fan Rowland MD ([id number]) on 07/26/2024 3:04:32 PM Referred By: Confirmed By: Fan Rowland MD
--- NOTE | 2024-07-26 11:47 | PCM.PROG ---
Progress Note Progress Note for Day of Date of Exam: 07/26/24 Subjective Subjective: Patient is a 84y/o female with a PMH of HTN, HLD, GERD and polycythemia admitted for pneumonia. This morning she is resting in bed, no acute events overnight. Reports some improvement in her symptoms. She is receiving IV fluids NS@75ml/h and antibiotics-Levaquin. She is currently on 4L NC. CTA also showed Cholelithiasis. Patient reports seeing surgeon in [place] 3 months ago and had US done. She was told she does not need gallbladder surgery at this time. Denies abdominal pain. Labs/imaging reviewed: -WBC 6, hemoglobin 11.1, platelets 200, sodium 138, potassium 4.2, creatinine 0.79, glucose 85, -CXR: No acute cardiopulmonary disease Plan: continue to monitor on med-surg. Wean O2 as tolerated to keep sats > 90%, yesterday patient was unable to be weaned down from 4 L nasal cannula due to rapid desaturation. Will consult cardiology for further evaluation. Will also order echo. Continue nebs, pulmicort. Continue IS. Continue hydration and IV antibiotics. Follow AIT results and pending cultures. Home medications have been resumed. Replace electrolytes as needed. PT/OT as tolerated. Monitor AM labs/imaging. Past Medical Family Social History Allergies: Allergies Sulfa (Sulfonamide Antibiotics) [SULFA] Allergy (Verified 05/07/23 19:35) Review of Systems ROS changes noted: see HPI Vital Signs and I&O's Vital Signs: Vital Signs Temperature 97.7 F Temperature 97.6 F Pulse Rate [Left Brachial] 72 Pulse Rate [Left Brachial] 69 Pulse Rate 77 Respiratory Rate 20 Respiratory Rate 20 Respiratory Rate 20 Blood Pressure [Left Arm] 180/81 Blood Pressure [Left Arm] 168/82 Blood Pressure [Left Arm] 191/89 O2 Sat by Pulse Oximetry 92 O2 Sat by Pulse Oximetry 92 O2 Sat by Pulse Oximetry 93 Intake and Output: Intake & Output 07/23/24 07/24/24 07/25/24 07/26/24 23:59 23:59 23:59 23:59 Intake Total 600 / 600 2751 / 2751 496 / 496 Balance 600 / 600 2751 / 2751 496 / 496 Physical Exam Oriented: Normal Eyes: Normal Throat: Normal Respiratory: Normal Cardiovascular: Normal Auscultation: Bowel Sounds: Normal Palpation: Normal Tenderness: Normal Skin: Normal Musculoskeletal: Hip and Leg Psychiatric: Normal Mood Description: Calm Affect: Normal Speech Pattern: Clear and Appropriate Laboratory and Diagnostics 07/26/24 05:05 07/26/24 05:05 Labs: 07/24/24 14:53 Blood Blood Culture - Preliminary 07/24/24 14:23 Blood Blood Culture - Preliminary Laboratory WBC 6.0 X10^3/uL (3.6-10.0) 07/26/24 05:05 RBC 2.71 X10^6/uL (3.5-5.4) L 07/26/24 05:05 Hgb 11.1 g/dL (12.0-16.0) L 07/26/24 05:05 Hct 31.4 % (36.0-47.0) L 07/26/24 05:05 MCV 116.2 fL (80.0-100.0) H 07/26/24 05:05 MCH 40.9 pg (27.0-34.0) H 07/26/24 05:05 MCHC 35.2 g/dL (33.0-35.0) H 07/26/24 05:05 RDW 15.1 % (11.6-16.5) 07/26/24 05:05 Plt Count 200 X10^3/uL (150.0-450.0) 07/26/24 05:05 Plt Count Comment Adequate (ADEQUATE) 07/26/24 05:05 MPV 7.5 fL (7.4-11.0) 07/26/24 05:05 Neut % (Auto) 80.9 % (42.0-75.0) H 07/26/24 05:05 Lymph % (Auto) 6.8 % (21.0-51.0) L 07/26/24 05:05 [place] % (Auto) 9.6 % (0.0-13.0) 07/26/24 05:05 Eos % (Auto) 2.1 % (0.9-2.9) 07/26/24 05:05 Baso % (Auto) 0.6 % (0.2-1.0) 07/26/24 05:05 Neut # (Auto) 4.9 x10^3/uL (2.2-4.8) H 07/26/24 05:05 Lymph # (Auto) 0.4 X10^3/uL (1.3-2.9) L 07/26/24 05:05 [place] # (Auto) 0.6 x10^3/uL (0.3-0.8) 07/26/24 05:05 Eos # (Auto) 0.1 x10^3/uL (0.0-0.2) 07/26/24 05:05 Baso # (Auto) 0.0 X10^3/uL (0.0-0.1) 07/26/24 05:05 Absolute Nucleated RBC 0.0 /100WBC 07/26/24 05:05 Plt Morphology Comment Normal (NORMAL) 07/26/24 05:05 RBC Morphology Abnormal (NORMAL) A 07/26/24 05:05 Macrocytosis 3+ A 07/26/24 05:05 D-Dimer 3.57 ug/ml (0.0-0.57) H 07/24/24 09:40 Sample Site Rrad 07/24/24 09:29 ABG pH 7.450 (7.35-7.45) 07/24/24 09:29 ABG pCO2 27.0 mmHg (35.0-45.0) L 07/24/24 09:29 ABG pO2 43.0 mmHg (80.0-100.0) L* 07/24/24 09:29 ABG HCO3 18.8 mmol/L (22-26) L 07/24/24 09:29 ABG O2 Saturation 81.0 % (90-100) L* 07/24/24 09:29 ABG Base Excess -3.9 mmol/L (-2.0-2.0) L 07/24/24 09:29 Richie Test Pos 07/24/24 09:29 A-a Gradient 73.0 mmHg 07/24/24 09:29 FiO2 21.0 07/24/24 09:29 Blood Gas Comments Pt adrianna well. kg 07/24/24 09:29 Sodium 138 mmol/L (136-145) 07/26/24 05:05 Corrected Sodium TNP 07/26/24 05:05 Potassium 4.2 mmol/L (3.5-5.1) 07/26/24 05:05 Chloride 107 mmol/L (98-107) 07/26/24 05:05 Carbon Dioxide 17.9 mmol/L (21-32) L 07/26/24 05:05 BUN 14 mg/dL (7-18) 07/26/24 05:05 Creatinine 0.79 mg/dL (0.55-1.02) 07/26/24 05:05 Est GFR (MDRD) Af Amer > 60 (>60) 07/26/24 05:05 Est GFR (MDRD) Non-Af > 60 (>60) 07/26/24 05:05 Glucose 85 mg/dL (65-99) 07/26/24 05:05 Lactic Acid 0.5 mmol/L (0.4-2.0) 07/24/24 14:23 Calcium 8.7 mg/dL (8.5-10.1) 07/26/24 05:05 Corrected Calcium 9.6 mg/dL (8.5-10.1) 07/26/24 05:05 Magnesium 2.0 mg/dL (2.0-2.9) 07/26/24 05:05 Total Bilirubin 0.70 mg/dL (0.2-1.0) 07/26/24 05:05 AST 14 Units/L (15-37) L 07/26/24 05:05 ALT 7 Units/L (12-78) L 07/26/24 05:05 Alkaline Phosphatase 88 Units/L (46-116) 07/26/24 05:05 B-Natriuretic Peptide 187 pg/mL (0-79) H 07/26/24 05:05 Total Protein 6.4 g/dL (6.4-8.2) 07/26/24 05:05 Albumin 2.9 g/dL (3.4-5.0) L 07/26/24 05:05 Globulin 3.5 g/dL (2.5-4.5) 07/26/24 05:05 Albumin/Globulin Ratio 0.8 Ratio (1.1-2.1) L 07/26/24 05:05 Amylase 20 Units/L (25-115) L 07/24/24 09:40 Lipase 38 Units/L (16-77) 07/24/24 09:40 Specimen Type Clean catch urine 07/24/24 12:09 Urine Color Yellow (YELLOW) 07/24/24 12:09 Urine Appearance Clear (CLEAR) 07/24/24 12:09 Urine pH 6.0 (5.0 - 8.0) 07/24/24 12:09 Ur Specific [place] 1.010 (1.000-1.030) 07/24/24 12:09 Urine Protein 2+ (NEGATIVE) 07/24/24 12:09 Urine Glucose (UA) Negative (NEGATIVE) 07/24/24 12:09 Urine Ketones Negative (NEGATIVE) 07/24/24 12:09 Urine Blood Negative (NEGATIVE) 07/24/24 12:09 Urine Nitrite Negative (NEGATIVE) 07/24/24 12:09 Urine Bilirubin Negative (NEGATIVE) 07/24/24 12:09 Urine Urobilinogen Normal (NORMAL) 07/24/24 12:09 Ur Leukocyte Esterase 1+ (NEGATIVE) 07/24/24 12:09 Urine RBC None seen /HPF (0-3) 07/24/24 12:09 Urine WBC 0-2 /HPF (0-5) 07/24/24 12:09 Ur Squamous Epith Cells Rare /HPF (NEGATIVE) 07/24/24 12:09 Urine Bacteria Negative /HPF (NEGATIVE) 07/24/24 12:09 Ur Culture Indicated? No/not indicated 07/24/24 12:09 SARS-CoV-2 (PCR) Negative (NEGATIVE) 07/24/24 18:15 Influenza Type A (PCR) Negative (NEGATIVE) 07/24/24 18:15 Influenza Type B (PCR) Negative (NEGATIVE) 07/24/24 18:15 RSV (PCR) Negative (NEGATIVE) 07/24/24 18:15 Plan (1) Pneumonia: Status: Acute Qualifiers: Laterality: bilateral Lung location: unspecified part of lung Pneumonia type: due to unspecified organism Qualified Code(s): J18.9 - Pneumonia, unspecified organism (2) Acute respiratory failure: Status: Acute Qualifiers: Respiratory failure complication: hypoxia Qualified Code(s): J96.01 - Acute respiratory failure with hypoxia (3) Generalized weakness: Status: Acute (4) Polycythemia vera: Status: Acute (5) Anemia: Status: Acute Qualifiers: Anemia type: unspecified type Qualified Code(s): D64.9 - Anemia, unspecified (6) HTN (hypertension): Status: Acute Qualifiers: Hypertension type: primary hypertension Qualified Code(s): I10 - Essential (primary) hypertension
--- NOTE | 2024-07-26 15:20 | DR.CONSULT ---
CONSULT Consultation for Day of: Date: 07/26/24 Chief Complaint Chief Complaint: sob Allergies Allergies Allergy/AdvReac Type Severity Reaction Status Date / Time Sulfa (Sulfonamide Allergy Verified 05/07/23 19:35 Antibiotics) [SULFA] History of Present Illness History of Present Illness: 84 yo female- pmhx of pcv- on meds- also htn- no smoking/lung disease dxed- father was large smoker- might have sleep apnea as loud snorer but never tested- admitted for cxr suggesting pna/hypoxia. no past cardiac history- bp not well controlled Past Medical History Past Medical History: Dyslipidemia and Hypertension Past Surgical History Surgical History: Hysterectomy Family History Family Medical History: Cancer and Heart Failure Social History Does patient currently use any type of tobacco product: No Have you used tobacco products in the last 12 months: No Type of Tobacco Use: None Does any household member use tobacco: No Alcohol Use: None Drug Use: None Medications Home Medications: Sulfa (Sulfonamide Antibiotics) [SULFA] Allergy (Verified 05/07/23 19:35) CONTINUE taking the following medications pantoprazole 40 mg tablet,delayed release 40 mg PO QDAY 07/24/24 [History] simvastatin 40 mg tablet 40 mg PO QPM 07/24/24 [History] Physical Exam Vital Signs: Vital Signs Temperature 97.9 F Temperature 97.7 F Pulse Rate [Left Brachial] 71 Pulse Rate [Left Brachial] 72 Pulse Rate 77 Respiratory Rate 20 Respiratory Rate 20 Respiratory Rate 20 Blood Pressure [Left Arm] 174/73 Blood Pressure [Left Arm] 180/81 O2 Sat by Pulse Oximetry 92 O2 Sat by Pulse Oximetry 92 O2 Sat by Pulse Oximetry 92 alert ox3 nad clear lungs no jvd/no bruits rrr s4 mild b edema labs: 7.45/27/43/81% sat, wbc 6.0, hct 31, mcv 116, ddimer 3.5 cxr: PNA CTA chest: no PE/interstitial opacities/prom PA c/w pulm htn ekg: nsr lvh poss inf mi echo: LVH/normal wall motion and EF/ mild mr/pa 45 Plan (1) Pneumonia: Status: Acute Qualifiers: Laterality: bilateral Lung location: unspecified part of lung Pneumonia type: due to unspecified organism Qualified Code(s): J18.9 - Pneumonia, unspecified organism Plan: o2/antibiotics (2) Polycythemia vera: Status: Acute (3) Anemia: Status: Acute Qualifiers: Anemia type: unspecified type Qualified Code(s): D64.9 - Anemia, unspecified (4) HTN (hypertension): Status: Acute Qualifiers: Hypertension type: primary hypertension Qualified Code(s): I10 - Essential (primary) hypertension Narrative Support Text: needs better control- no doubt contributing to pulm HTN Plan: add arb (5) Pulmonary arterial hypertension: Status: Acute Narrative Support Text: r/o YOLY w sleep test in future( elizabeth as so hypoxic)-htn contributing too
[2024-07-26] MEDS: COZAAR PO SCH (15:51)
[2024-07-26] MEDS: COLACE CAP 100 MG PO PRN (21:26)
[2024-07-26] MEDS: MILK OF MAGNESIA PO PRN (21:26)
[2024-07-27 05:57] LABS: BASOPHILS % (AUTO) 0.6 % (0.2-1.0); EOSINOPHILS # (AUTO) 0.2 x10^3/uL (0.0-0.2); EOSINOPHILS % (AUTO) 2.3 % (0.9-2.9); HEMATOCRIT 30.5 % (36.0-47.0); HEMOGLOBIN 10.6 g/dL (12.0-16.0); LYMPHOCYTES # (AUTO) 0.5 X10^3/uL (1.3-2.9); LYMPHOCYTES % (AUTO) 6.5 % (21.0-51.0); MEAN CORPUSCULAR HEMOGLOBIN 40.5 pg (27.0-34.0); MEAN CORPUSCULAR HGB CONC 34.8 g/dL (33.0-35.0); MEAN CORPUSCULAR VOLUME 116.4 fL (80.0-100.0); MEAN PLATELET VOLUME 7.5 fL (7.4-11.0); MONOCYTES # (AUTO) 0.5 x10^3/uL (0.3-0.8); MONOCYTES % (AUTO) 6.3 % (0.0-13.0); NEUTROPHILS # (AUTO) 6.1 x10^3/uL (2.2-4.8); NEUTROPHILS % (AUTO) 84.3 % (42.0-75.0); PLATELET COUNT 217 X10^3/uL (150.0-450.0); RED BLOOD COUNT 2.62 X10^6/uL (3.5-5.4); RED CELL DISTRIBUTION WIDTH 15.3 % (11.6-16.5); WHITE BLOOD COUNT 7.3 X10^3/uL (3.6-10.0)
[2024-07-27 06:04] LABS: ALANINE AMINOTRANSFERASE 6 Units/L (12-78); ALBUMIN 2.7 g/dL (3.4-5.0); ALKALINE PHOSPHATASE 85 Units/L (46-116); ASPARTATE AMINO TRANSFERASE 14 Units/L (15-37); BLOOD UREA NITROGEN 12 mg/dL (7-18); CALCIUM 8.6 mg/dL (8.5-10.1); CARBON DIOXIDE 19.3 mmol/L (21-32); CHLORIDE 109 mmol/L (98-107); COR CA(FOR HYPOALB) 9.6 mg/dL (8.5-10.1); CREATININE 0.87 mg/dL (0.55-1.02); GLUCOSE 83 mg/dL (65-99); POTASSIUM 3.7 mmol/L (3.5-5.1); SODIUM 139 mmol/L (136-145); TOTAL PROTEIN 5.9 g/dL (6.4-8.2); eGFR NON BLACK RACES > 60 (>60)
[2024-07-27 06:39] LABS: PLATELET MORPHOLOGY COMMENT NORMAL (NORMAL)
[2024-07-27] MEDS ORDERED: CONSULT PHARMACY - POTASSIUM & MAGNESIUM XX SCH (07:00)
--- NOTE | 2024-07-27 08:12 | NOTE.SOAP ---
Soap Note Note for Day of Date of Exam: 07/27/24 Subjective Data Subjective Data: coughing Objective Data Objective Data: bp still up but only 2 doses of losartan Assessment Assessment: pna/htn/pulm htn/hypoxia Plan Plan: cont same dose of new arb- push in a few days if bp up- cont resp/antibiotics
[2024-07-27] MEDS: K-DUR TAB 20 MEQ PO SCH (08:46)
[2024-07-27] MEDS: SOLU-Medrol 40 MG VIAL IVP ONE (09:36)
[2024-07-27 10:36] LABS: ABG BASE EXCESS -5.1 mmol/L (-2.0-2.0); ABG HCO3 18.4 mmol/L (22-26)
[2024-07-27 10:37] LABS: ABG ALLEN TEST POS
--- NOTE | 2024-07-27 10:54 | EKG ---
Test Reason : Abnormal ABG, low oxygen saturation Blood Pressure : */* mmHG Vent. Rate : 74 BPM Atrial Rate : 74 BPM P-R Int : 166 ms QRS Dur : 90 ms QT Int : 410 ms P-R-T Axes : 25 -24 16 degrees QTc Int : 455 ms Normal sinus rhythm Inferior infarct (cited on or before 26-JUL-2024) Poor R-wave progression Abnormal ECG When compared with ECG of 26-JUL-2024 09:12, Nonspecific T wave abnormality now evident in Anterior leads Confirmed by Fan Rowland MD ([id number]) on 07/28/2024 7:06:17 AM Referred By: Confirmed By: Fan Rowland MD
[2024-07-27] MEDS: LASIX IVP ONE (13:01)
--- NOTE | 2024-07-28 05:34 | RAD ---
EXAM:CHEST, 1 VIEWHISTORY:hypoxia;COMPARISON: 4FINDINGS:The trachea is midline. The cardiac silhouette is unremarkable . The lungs are clear without focal infiltrate or effusion. The bony thorax is unremarkable.IMPRESSION:No acute cardiopulmonary disease.THIS IS AN ELECTRONICALLY VERIFIED FINAL [id number]/2024 5:31 AM - Electronically signed by Rolando Peralta MD
--- NOTE | 2024-07-28 07:57 | PCM.PROG ---
Progress Note Progress Note for Day of Date of Exam: 07/27/24 Subjective Subjective: Patient is a 84y/o female with a PMH of HTN, HLD, GERD and polycythemia admitted for pneumonia. This morning she is resting in bed. Overnight, she acutely desaturated and had to be put on an oxymask for a period of time. She is receiving IV fluids NS@75ml/h and antibiotics-Levaquin. She is c urrently on 5L NC. Labs/imaging reviewed: -WBC 7.3, hemoglobin 10.6, platelets 217, sodium 139, potassium 3.7, creatinine 0.87, glucose 83, -AIT negative -CXR: No acute cardiopulmonary disease Plan: During the morning patient started to require more oxygen and needed to be placed on heated high flow. She is currently on heated high flow with FiO2 35%. Will move patient to ICU for further monitoring. She did have echo that revealed ejection fraction of 65 to 70% but also moderate pulmonary hypertension. It is possible that this is also contributing to her desaturation. Will change IV fluids to KVO. Will consult [facility] for further evaluation and recommendation. Order Solumedrol 60mg x 1 dose. Wean O2 as tolerated to keep sats > 90%. Continue nebs, pulmicort. Continue IS, IV antibiotics. Home medications have been resumed. Replace electrolytes as needed. PT/OT as tolerated. Monitor AM labs/imaging. Time spent on clinical assessment, reviewing labs and imaging, decision making, and documentation greater than 45 minutes. Past Medical Family Social History Allergies: Allergies Sulfa (Sulfonamide Antibiotics) [SULFA] Allergy (Verified 05/07/23 19:35) Review of Systems ROS changes noted: see HPI Vital Signs and I&O's Vital Signs: Vital Signs Temperature 98.4 F Temperature 98.6 F Pulse Rate 70 Pulse Rate 68 Pulse Rate 49 Pulse Rate 49 Pulse Rate 49 Pulse Rate 49 Pulse Rate 50 Pulse Rate 50 Pulse Rate 51 Pulse Rate 51 Pulse Rate 53 Pulse Rate 51 Pulse Rate 51 Pulse Rate 51 Pulse Rate 50 Pulse Rate 50 Pulse Rate 51 Pulse Rate 51 Pulse Rate 52 Pulse Rate 52 Pulse Rate 52 Pulse Rate 52 Pulse Rate 52 Pulse Rate 54 Pulse Rate 55 Pulse Rate 59 Pulse Rate 55 Respiratory Rate 25 Respiratory Rate 28 Respiratory Rate 20 Respiratory Rate 24 Respiratory Rate 22 Respiratory Rate 29 Respiratory Rate 26 Respiratory Rate 34 Respiratory Rate 30 Respiratory Rate 27 Respiratory Rate 31 Respiratory Rate 30 Respiratory Rate 32 Respiratory Rate 32 Respiratory Rate 22 Respiratory Rate 34 Respiratory Rate 32 Respiratory Rate 33 Respiratory Rate 35 Respiratory Rate 36 Respiratory Rate 39 Respiratory Rate 35 Respiratory Rate 33 Respiratory Rate 17 Respiratory Rate 23 Respiratory Rate 24 Respiratory Rate 43 Blood Pressure 134/64 Blood Pressure 134/61 Blood Pressure 141/65 Blood Pressure 141/65 Blood Pressure 141/65 Blood Pressure 136/61 Blood Pressure 128/62 Blood Pressure 154/67 O2 Sat by Pulse Oximetry 98 O2 Sat by Pulse Oximetry 98 O2 Sat by Pulse Oximetry 95 O2 Sat by Pulse Oximetry 94 O2 Sat by Pulse Oximetry 94 O2 Sat by Pulse Oximetry 94 O2 Sat by Pulse Oximetry 94 O2 Sat by Pulse Oximetry 94 O2 Sat by Pulse Oximetry 94 O2 Sat by Pulse Oximetry 95 O2 Sat by Pulse Oximetry 97 O2 Sat by Pulse Oximetry 94 O2 Sat by Pulse Oximetry 94 O2 Sat by Pulse Oximetry 94 O2 Sat by Pulse Oximetry 93 O2 Sat by Pulse Oximetry 94 O2 Sat by Pulse Oximetry 94 O2 Sat by Pulse Oximetry 94 O2 Sat by Pulse Oximetry 95 O2 Sat by Pulse Oximetry 94 O2 Sat by Pulse Oximetry 94 O2 Sat by Pulse Oximetry 94 O2 Sat by Pulse Oximetry 94 O2 Sat by Pulse Oximetry 94 O2 Sat by Pulse Oximetry 94 O2 Sat by Pulse Oximetry 94 O2 Sat by Pulse Oximetry 94 Intake and Output: Intake & Output 07/25/24 07/26/24 07/27/24 07/28/24 23:59 23:59 23:59 23:59 Intake Total 2751 / 2751 1240 / 1240 605 / 605 125 / 125 Output Total 450 / 450 500 / 500 Balance 2751 / 2751 1240 / 1240 155 / 155 -375 / -375 Physical Exam Oriented: Normal Eyes: Normal Throat: Normal Respiratory: Normal Cardiovascular: Normal Auscultation: Bowel Sounds: Normal Palpation: Normal Tenderness: Normal Skin: Normal Musculoskeletal: Hip and Leg Psychiatric: Normal Mood Description: Calm Affect: Normal Speech Pattern: Clear and Appropriate Laboratory and Diagnostics 07/27/24 05:09 07/27/24 05:09 Labs: 07/24/24 14:53 Blood Blood Culture - Preliminary 07/24/24 14:23 Blood Blood Culture - Preliminary Laboratory WBC 7.3 X10^3/uL (3.6-10.0) 07/27/24 05:09 RBC 2.62 X10^6/uL (3.5-5.4) L 07/27/24 05:09 Hgb 10.6 g/dL (12.0-16.0) L 07/27/24 05:09 Hct 30.5 % (36.0-47.0) L 07/27/24 05:09 MCV 116.4 fL (80.0-100.0) H 07/27/24 05:09 MCH 40.5 pg (27.0-34.0) H 07/27/24 05:09 MCHC 34.8 g/dL (33.0-35.0) 07/27/24 05:09 RDW 15.3 % (11.6-16.5) 07/27/24 05:09 Plt Count 217 X10^3/uL (150.0-450.0) 07/27/24 05:09 Plt Count Comment Adequate (ADEQUATE) 07/27/24 05:09 MPV 7.5 fL (7.4-11.0) 07/27/24 05:09 Neut % (Auto) 84.3 % (42.0-75.0) H 07/27/24 05:09 Lymph % (Auto) 6.5 % (21.0-51.0) L 07/27/24 05:09 [place] % (Auto) 6.3 % (0.0-13.0) 07/27/24 05:09 Eos % (Auto) 2.3 % (0.9-2.9) 07/27/24 05:09 Baso % (Auto) 0.6 % (0.2-1.0) 07/27/24 05:09 Neut # (Auto) 6.1 x10^3/uL (2.2-4.8) H 07/27/24 05:09 Lymph # (Auto) 0.5 X10^3/uL (1.3-2.9) L 07/27/24 05:09 [place] # (Auto) 0.5 x10^3/uL (0.3-0.8) 07/27/24 05:09 Eos # (Auto) 0.2 x10^3/uL (0.0-0.2) 07/27/24 05:09 Baso # (Auto) 0.0 X10^3/uL (0.0-0.1) 07/27/24 05:09 Absolute Nucleated RBC 0.0 /100WBC 07/27/24 05:09 Plt Morphology Comment Normal (NORMAL) 07/27/24 05:09 RBC Morphology Abnormal (NORMAL) A 07/27/24 05:09 Macrocytosis 3+ A 07/27/24 05:09 D-Dimer 3.57 ug/ml (0.0-0.57) H 07/24/24 09:40 Sample Site Lrad 07/27/24 10:30 ABG pH 7.410 (7.35-7.45) 07/27/24 10:30 ABG pCO2 29.0 mmHg (35.0-45.0) L 07/27/24 10:30 ABG pO2 54.0 mmHg (80.0-100.0) L 07/27/24 10:30 ABG HCO3 18.4 mmol/L (22-26) L 07/27/24 10:30 ABG O2 Saturation 88.0 % (90-100) L 07/27/24 10:30 ABG Base Excess -5.1 mmol/L (-2.0-2.0) L 07/27/24 10:30 Richie Test Pos 07/27/24 10:30 A-a Gradient 223.0 mmHg 07/27/24 10:30 FiO2 44.0 07/27/24 10:30 Blood Gas Comments Luciano well ms 07/27/24 10:30 Sodium 139 mmol/L (136-145) 07/27/24 05:09 Corrected Sodium TNP 07/27/24 05:09 Potassium 3.7 mmol/L (3.5-5.1) 07/27/24 05:09 Chloride 109 mmol/L (98-107) H 07/27/24 05:09 Carbon Dioxide 19.3 mmol/L (21-32) L 07/27/24 05:09 BUN 12 mg/dL (7-18) 07/27/24 05:09 Creatinine 0.87 mg/dL (0.55-1.02) 07/27/24 05:09 Est GFR (MDRD) Af Amer > 60 (>60) 07/27/24 05:09 Est GFR (MDRD) Non-Af > 60 (>60) 07/27/24 05:09 Glucose 83 mg/dL (65-99) 07/27/24 05:09 Lactic Acid 0.5 mmol/L (0.4-2.0) 07/24/24 14:23 Calcium 8.6 mg/dL (8.5-10.1) 07/27/24 05:09 Corrected Calcium 9.6 mg/dL (8.5-10.1) 07/27/24 05:09 Magnesium 2.0 mg/dL (2.0-2.9) 07/26/24 05:05 Total Bilirubin 0.60 mg/dL (0.2-1.0) 07/27/24 05:09 AST 14 Units/L (15-37) L 07/27/24 05:09 ALT 6 Units/L (12-78) L 07/27/24 05:09 Alkaline Phosphatase 85 Units/L (46-116) 07/27/24 05:09 Troponin I High Sens 7.3 ng/L (4.0-60.0) 07/27/24 22:41 B-Natriuretic Peptide 202 pg/mL (0-79) H 07/27/24 05:09 Total Protein 5.9 g/dL (6.4-8.2) L 07/27/24 05:09 Albumin 2.7 g/dL (3.4-5.0) L 07/27/24 05:09 Globulin 3.2 g/dL (2.5-4.5) 07/27/24 05:09 Albumin/Globulin Ratio 0.8 Ratio (1.1-2.1) L 07/27/24 05:09 Amylase 20 Units/L (25-115) L 07/24/24 09:40 Lipase 38 Units/L (16-77) 07/24/24 09:40 Specimen Type Clean catch urine 07/24/24 12:09 Urine Color Yellow (YELLOW) 07/24/24 12:09 Urine Appearance Clear (CLEAR) 07/24/24 12:09 Urine pH 6.0 (5.0 - 8.0) 07/24/24 12:09 Ur Specific [place] 1.010 (1.000-1.030) 07/24/24 12:09 Urine Protein 2+ (NEGATIVE) 07/24/24 12:09 Urine Glucose (UA) Negative (NEGATIVE) 07/24/24 12:09 Urine Ketones Negative (NEGATIVE) 07/24/24 12:09 Urine Blood Negative (NEGATIVE) 07/24/24 12:09 Urine Nitrite Negative (NEGATIVE) 07/24/24 12:09 Urine Bilirubin Negative (NEGATIVE) 07/24/24 12:09 Urine Urobilinogen Normal (NORMAL) 07/24/24 12:09 Ur Leukocyte Esterase 1+ (NEGATIVE) 07/24/24 12:09 Urine RBC None seen /HPF (0-3) 07/24/24 12:09 Urine WBC 0-2 /HPF (0-5) 07/24/24 12:09 Ur Squamous Epith Cells Rare /HPF (NEGATIVE) 07/24/24 12:09 Urine Bacteria Negative /HPF (NEGATIVE) 07/24/24 12:09 Ur Culture Indicated? No/not indicated 07/24/24 12:09 SARS-CoV-2 (PCR) Negative (NEGATIVE) 07/24/24 18:15 Influenza Type A (PCR) Negative (NEGATIVE) 07/24/24 18:15 Influenza Type B (PCR) Negative (NEGATIVE) 07/24/24 18:15 RSV (PCR) Negative (NEGATIVE) 07/24/24 18:15 Resp Viral Panel (PCR) See scanned report 07/24/24 18:13 Plan (1) Pneumonia: Status: Acute Qualifiers: Laterality: bilateral Lung location: unspecified part of lung Pneumonia type: due to unspecified organism Qualified Code(s): J18.9 - Pneumonia, unspecified organism (2) Polycythemia vera: Status: Acute (3) Anemia: Status: Acute Qualifiers: Anemia type: unspecified type Qualified Code(s): D64.9 - Anemia, unspecified (4) HTN (hypertension): Status: Acute Qualifiers: Hypertension type: primary hypertension Qualified Code(s): I10 - Essential (primary) hypertension (5) Pulmonary arterial hypertension: Status: Acute
[2024-07-28] MEDS: COZAAR PO SCH (09:34)
[2024-07-28 09:38] LABS: ABG BASE EXCESS -4.7 mmol/L (-2.0-2.0); ABG HCO3 19.4 mmol/L (22-26)
[2024-07-28 09:39] LABS: ABG ALLEN TEST POS
[2024-07-28 10:03] LABS: BASOPHILS # (AUTO) 0.1 X10^3/uL (0.0-0.1); MEAN CORPUSCULAR HGB CONC 34.4 g/dL (33.0-35.0)
[2024-07-28] MEDS: COZAAR PO ONE (10:06)
[2024-07-28 10:11] LABS: ALANINE AMINOTRANSFERASE 6 Units/L (12-78); ALKALINE PHOSPHATASE 100 Units/L (46-116); ASPARTATE AMINO TRANSFERASE 14 Units/L (15-37); BLOOD UREA NITROGEN 22 mg/dL (7-18); CALCIUM 9.1 mg/dL (8.5-10.1); CARBON DIOXIDE 21.8 mmol/L (21-32); CHLORIDE 103 mmol/L (98-107); COR CA(FOR HYPOALB) 9.9 mg/dL (8.5-10.1); CREATININE 1.33 mg/dL (0.55-1.02); GLUCOSE 105 mg/dL (65-99); POTASSIUM 3.8 mmol/L (3.5-5.1); SODIUM 136 mmol/L (136-145); TOTAL PROTEIN 6.8 g/dL (6.4-8.2); eGFR NON BLACK RACES 40 (>60)
[2024-07-28 10:16] LABS: BASOPHILS % (AUTO) 0.5 % (0.2-1.0); EOSINOPHILS % (AUTO) 0.4 % (0.9-2.9); LYMPHOCYTES # (AUTO) 0.5 X10^3/uL (1.3-2.9); LYMPHOCYTES % (AUTO) 4.6 % (21.0-51.0); MEAN CORPUSCULAR HEMOGLOBIN 39.8 pg (27.0-34.0); MEAN CORPUSCULAR VOLUME 115.6 fL (80.0-100.0); MEAN PLATELET VOLUME 7.3 fL (7.4-11.0); MONOCYTES # (AUTO) 0.6 x10^3/uL (0.3-0.8); MONOCYTES % (AUTO) 6.1 % (0.0-13.0); NEUTROPHILS # (AUTO) 9.3 x10^3/uL (2.2-4.8); NEUTROPHILS % (AUTO) 88.4 % (42.0-75.0); PLATELET COUNT 270 X10^3/uL (150.0-450.0); RED BLOOD COUNT 3.03 X10^6/uL (3.5-5.4); RED CELL DISTRIBUTION WIDTH 15.1 % (11.6-16.5); WHITE BLOOD COUNT 10.5 X10^3/uL (3.6-10.0)
[2024-07-28 10:45] LABS: PLATELET MORPHOLOGY COMMENT NORMAL (NORMAL)
[2024-07-28] MEDS: LASIX IVP ONE ×2 (11:35→17:41)
[2024-07-29 05:01] LABS: BASOPHILS % (AUTO) 0.4 % (0.2-1.0); EOSINOPHILS # (AUTO) 0.2 x10^3/uL (0.0-0.2); EOSINOPHILS % (AUTO) 2.2 % (0.9-2.9); HEMATOCRIT 31.2 % (36.0-47.0); HEMOGLOBIN 10.9 g/dL (12.0-16.0); LYMPHOCYTES # (AUTO) 0.6 X10^3/uL (1.3-2.9); LYMPHOCYTES % (AUTO) 7.8 % (21.0-51.0); MEAN CORPUSCULAR HEMOGLOBIN 40.6 pg (27.0-34.0); MEAN CORPUSCULAR HGB CONC 35.1 g/dL (33.0-35.0); MEAN CORPUSCULAR VOLUME 115.6 fL (80.0-100.0); MEAN PLATELET VOLUME 7.9 fL (7.4-11.0); MONOCYTES # (AUTO) 0.5 x10^3/uL (0.3-0.8); MONOCYTES % (AUTO) 6.6 % (0.0-13.0); NEUTROPHILS # (AUTO) 6.8 x10^3/uL (2.2-4.8); PLATELET COUNT 233 X10^3/uL (150.0-450.0); RED CELL DISTRIBUTION WIDTH 15.1 % (11.6-16.5); WHITE BLOOD COUNT 8.2 X10^3/uL (3.6-10.0)
[2024-07-29 05:16] LABS: ALANINE AMINOTRANSFERASE 6 Units/L (12-78); ALBUMIN 2.6 g/dL (3.4-5.0); ALKALINE PHOSPHATASE 84 Units/L (46-116); ASPARTATE AMINO TRANSFERASE 14 Units/L (15-37); BLOOD UREA NITROGEN 28 mg/dL (7-18); CALCIUM 8.6 mg/dL (8.5-10.1); CARBON DIOXIDE 23.2 mmol/L (21-32); CHLORIDE 107 mmol/L (98-107); COR CA(FOR HYPOALB) 9.7 mg/dL (8.5-10.1); CREATININE 1.38 mg/dL (0.55-1.02); GLUCOSE 90 mg/dL (65-99); MAGNESIUM 1.9 mg/dL (2.0-2.9); POTASSIUM 3.4 mmol/L (3.5-5.1); SODIUM 141 mmol/L (136-145); eGFR NON BLACK RACES 39 (>60)
[2024-07-29 05:42] LABS: PLATELET MORPHOLOGY COMMENT NORMAL (NORMAL)
[2024-07-29] MEDS ORDERED: CONSULT PHARMACY - POTASSIUM & MAGNESIUM XX SCH (06:00)
[2024-07-29] MEDS: MAG-OX TAB PO SCH (08:27)
[2024-07-29] MEDS: K-DUR TAB 20 MEQ PO SCH (08:28)
--- NOTE | 2024-07-29 11:42 | RAD ---
EXAM: CHEST, 1 VIEW HISTORY: hypoxia, shortness of breath, pneumonia COMPARISON: July 27, 2024 TECHNIQUE: 1 frontal view of the chest FINDINGS: Elevation of the right hemidiaphragm. Enlarged cardiac silhouette. Interstitial coarsening. Mild b ilateral infiltrates which could represent edema or developing pneumonia. No pneumothorax. IMPRESSION: Little interval change THIS IS AN ELECTRONICALLY VERIFIED FINAL REPORT 07/29/2024 11:29 AM - Electronically signed by Liban Zazueta MD
[2024-07-30 05:06] LABS: BASOPHILS # (AUTO) 0.1 X10^3/uL (0.0-0.1); BASOPHILS % (AUTO) 0.8 % (0.2-1.0); EOSINOPHILS # (AUTO) 0.2 x10^3/uL (0.0-0.2); EOSINOPHILS % (AUTO) 2.5 % (0.9-2.9); HEMATOCRIT 31.9 % (36.0-47.0); HEMOGLOBIN 11.1 g/dL (12.0-16.0); LYMPHOCYTES # (AUTO) 0.6 X10^3/uL (1.3-2.9); LYMPHOCYTES % (AUTO) 8.5 % (21.0-51.0); MEAN CORPUSCULAR HEMOGLOBIN 40.5 pg (27.0-34.0); MEAN CORPUSCULAR HGB CONC 34.8 g/dL (33.0-35.0); MEAN CORPUSCULAR VOLUME 116.4 fL (80.0-100.0); MEAN PLATELET VOLUME 7.8 fL (7.4-11.0); MONOCYTES # (AUTO) 0.4 x10^3/uL (0.3-0.8); MONOCYTES % (AUTO) 5.6 % (0.0-13.0); NEUTROPHILS # (AUTO) 6.1 x10^3/uL (2.2-4.8); NEUTROPHILS % (AUTO) 82.6 % (42.0-75.0); PLATELET COUNT 233 X10^3/uL (150.0-450.0); RED BLOOD COUNT 2.74 X10^6/uL (3.5-5.4); RED CELL DISTRIBUTION WIDTH 15.4 % (11.6-16.5); WHITE BLOOD COUNT 7.4 X10^3/uL (3.6-10.0)
[2024-07-30 05:50] LABS: BLOOD UREA NITROGEN 29 mg/dL (7-18); CARBON DIOXIDE 24.5 mmol/L (21-32); CHLORIDE 107 mmol/L (98-107); CREATININE 1.34 mg/dL (0.55-1.02); GLUCOSE 100 mg/dL (65-99); POTASSIUM 3.9 mmol/L (3.5-5.1); SODIUM 143 mmol/L (136-145); eGFR NON BLACK RACES 40 (>60)
[2024-07-30 05:59] LABS: PLATELET MORPHOLOGY COMMENT NORMAL (NORMAL)
[2024-07-30 06:10] LABS: MAGNESIUM 2.6 mg/dL (2.0-2.9)
[2024-07-30] MEDS: NORVASC TAB 5 MG PO SCH (08:36)
[2024-07-30] MEDS: HYDROCHLOROTHIAZIDE 12.5 MG CAP PO SCH (08:36)
--- NOTE | 2024-07-30 09:05 | NOTE.SOAP ---
Soap Note Note for Day of Date of Exam: 07/30/24 Subjective Data Subjective Data: sob improving- still needs O2 Objective Data Objective Data: bp 170 now was 120 yesterday afternoon p 70s cor rrr lungs sound better ext mild edema Assessment Assessment: pna/htn/lvh Plan Plan: home today per pt- change ccb to bid. cont arb bid- push diuretic- cont bb- f/u w me in few weeks
[2024-07-30 11:02] LABS: ALANINE AMINOTRANSFERASE < 6 Units/L (12-78); ALBUMIN 2.7 g/dL (3.4-5.0); ALKALINE PHOSPHATASE 86 Units/L (46-116); ASPARTATE AMINO TRANSFERASE 13 Units/L (15-37); TOTAL PROTEIN 6.2 g/dL (6.4-8.2)
[2024-07-30 12:34] VITALS: BP 165/72; PULSE 69; RESP 20; TEMP 98.1; O2SAT 94
--- NOTE | 2024-07-30 17:13 | RAD ---
EXAMINATION:CHEST, 1 VIEWHISTORY:PNEUMONIA, SOB; HTN, HYSTERECTOMY .COMPARISON STUDY:Chest x-ray 07/29/2024TECHNIQUE:Single portable AP view chestFINDINGS:Moderate elevation right hemidiaphragm. Linear shaped opacity right pulmonary base subsegmental atelectasis. Left lung is clear. Mild cardiac silhouette enlargement with a normal pulmonary vascular pattern. Enlarged central pulmonary arteries. Mild ectasia thoracic aorta. Normal pulmonary vascular pattern. Bones are unchanged.IMPRESSION:Moderate elevation of the right hemidiaphragm. Linear shaped opacity right lower lung/subsegmental atelectasis.Cardiomegaly.Enlarged central pulmonary arteries.THIS IS AN ELECTRONICALLY VERIFIED FINAL [id number]/2024 5:10 PM - Electronically signed by Magalie Perez MD
== END 2024-07-30 14:20 | disposition home health service (06) | DRG 193 ==
LOC: ER 09:11 → MED/SURG 09:11 → ICU 07-27 14:50
PROVIDERS: ADMIT Family Medicine; ATTEND Internal Medicine
DX: D45 Polycythemia vera; R26.89 Other abnormalities of gait and mobility; Z20.822 Contact with and (suspected) exposure to COVID-19; J18.8 Other pneumonia, unspecified organism; I10 Essential (primary) hypertension; R53.1 Weakness; J96.01 Acute respiratory failure with hypoxia; R11.2 Nausea with vomiting, unspecified; M25.552 Pain in left hip; W01.0XXA Fall on same level from slipping, tripping and stumbling without subsequent striking against object, initial encounter; R10.84 Generalized abdominal pain; I27.21 Secondary pulmonary arterial hypertension; E83.42 Hypomagnesemia; R94.31 Abnormal electrocardiogram [ECG] [EKG]; Y92.9 Unspecified place or not applicable; E87.6 Hypokalemia; D64.89 Other specified anemias

== ENCOUNTER 2024-08-08 12:07 | Observation (INO) ==
--- NOTE | 2024-08-08 14:34 | DR.URINEF ---
HPI Time Seen Time Seen by Provider: 08/08/24 14:29 PCP Primary Care Physician: Vinh Complaint Chief Complaint Doctors Comments: 84-year-old female, diagnosed with UTI, started on Rocephin and doxycycline yesterday, brought in by daughter for increasing confusion, weakness and continued urinary symptoms. Patient has had multiple falls, including 1 yesterday, had an x-ray done of her left hip at that time, however complains of continued severe pain in her left hip/buttocks. Denies other complaints. Chief Complaint:: EMS brought patient in via stretcher for UTI. When I asked patient the reason for her visit she told me to ask her daughter. Daughter states that patient was here last night for a UTI and was given rocephin and doxy and sent home. Daughter reports that the patient is confused, combative, and non cooperative and has had 2 falls once on Tuesday and one on Tuesday, since then she has complained of left hip/buttock pain. Daughter states that patient had an xray but needs another one. Patient answered all questions appropriately and was cooperative and thankful for assistance. COVID-19 Coronavirus risk:travel/contact w/high risk person: No Has patient experienced Coronavirus symptoms: No Source History Provided: Patient Mode of Arrival Mode of Arrival: EMS Timing Onset of Chief Complaint: 08/06/24 PMH PMH Past Medical History: Yes Past Medical History: Anxiety, Depression, Dyslipidemia and Hypertension Past Medical History Comment: macular degeneration Past Surgical History: Yes Surgical History: Hysterectomy Family History History of Family Medical Conditions: Yes Family Medical History: Cancer, Heart Failure and Hypertension Social History Type of Tobacco Use: None Alcohol Use: None Do you use any recreational Drugs:: No Lives With: Spouse Lives Where: Home Travel Risk Coronavirus risk:travel/contact w/high risk person: No Has patient experienced Coronavirus symptoms: No Infectious screening Have you traveled outside the country in the last 6 months?: No Isolation: Standard ROS Review of Systems Constitutional: See HPI All Other Systems: Reviewed and Negative PE Vital Signs Vitals: Vital Signs Temperature 97.7 F Pulse Rate 51 Pulse Rate 51 Pulse Rate 56 Pulse Rate 58 Pulse Rate 58 Pulse Rate 55 Pulse Rate 54 Pulse Rate 52 Pulse Rate 55 Pulse Rate 56 Pulse Rate 53 Pulse Rate 54 Pulse Rate 52 Pulse Rate 53 Pulse Rate 51 Pulse Rate 53 Pulse Rate 63 Pulse Rate 55 Pulse Rate 52 Pulse Rate 54 Pulse Rate 58 Pulse Rate 58 Pulse Rate 57 Respiratory Rate 18 Respiratory Rate 16 Blood Pressure 161/70 Blood Pressure 154/68 Blood Pressure 166/70 O2 Sat by Pulse Oximetry 97 O2 Sat by Pulse Oximetry 100 O2 Sat by Pulse Oximetry 99 O2 Sat by Pulse Oximetry 100 O2 Sat by Pulse Oximetry 100 O2 Sat by Pulse Oximetry 100 O2 Sat by Pulse Oximetry 100 O2 Sat by Pulse Oximetry 100 O2 Sat by Pulse Oximetry 100 O2 Sat by Pulse Oximetry 100 O2 Sat by Pulse Oximetry 100 O2 Sat by Pulse Oximetry 100 O2 Sat by Pulse Oximetry 100 O2 Sat by Pulse Oximetry 100 O2 Sat by Pulse Oximetry 100 O2 Sat by Pulse Oximetry 100 O2 Sat by Pulse Oximetry 79 O2 Sat by Pulse Oximetry 96 O2 Sat by Pulse Oximetry 94 O2 Sat by Pulse Oximetry 98 O2 Sat by Pulse Oximetry 98 O2 Sat by Pulse Oximetry 97 O2 Sat by Pulse Oximetry 99 O2 Sat by Pulse Oximetry 99 General Limitations: No Limitations General Appearance: Alert and In No Apparent Distress Eyes Eye exam: Normal Appearance ENT ENT Exam: Normal Exam Neck Neck Exam: Normal Inspection Chest Chest Inspection: Normal Inspection Respiratory Respiratory Exam: Normal Lung Sounds Bilat Respiratory Exam: Bilateral: Clear to Auscultation Cardiovascular Cardiovascular Exam: Regular Rate and Normal Rhythm Abdominal Exam Abdominal Exam: Normal Inspection, Normal Bowel Sounds and Soft Extremities Extremities Exam: Normal Inspection Back Back Exam: Normal Inspection Neurologic Neurological Exam: Alert and Oriented X3 Psychiatric Psychiatric Exam: Normal Affect and Normal Mood Skin Skin Exam: Warm, Dry, Intact and Normal Color ROR Labs Reviewed 08/08/24 15:00 08/08/24 15:00 Laboratory: WBC 7.4 X10^3/uL (3.6-10.0) 08/08/24 15:00 RBC 2.69 X10^6/uL (3.5-5.4) L 08/08/24 15:00 Hgb 10.9 g/dL (12.0-16.0) L 08/08/24 15:00 Hct 30.7 % (36.0-47.0) L 08/08/24 15:00 MCV 114.3 fL (80.0-100.0) H 08/08/24 15:00 MCH 40.7 pg (27.0-34.0) H 08/08/24 15:00 MCHC 35.6 g/dL (33.0-35.0) H 08/08/24 15:00 RDW 14.6 % (11.6-16.5) 08/08/24 15:00 Plt Count 270 X10^3/uL (150.0-450.0) 08/08/24 15:00 Plt Count Comment Adequate (ADEQUATE) 08/08/24 15:00 MPV 7.6 fL (7.4-11.0) 08/08/24 15:00 Neut % (Auto) 81.9 % (42.0-75.0) H 08/08/24 15:00 Lymph % (Auto) 9.6 % (21.0-51.0) L 08/08/24 15:00 [place] % (Auto) 5.1 % (0.0-13.0) 08/08/24 15:00 Eos % (Auto) 2.6 % (0.9-2.9) 08/08/24 15:00 Baso % (Auto) 0.8 % (0.2-1.0) 08/08/24 15:00 Neut # (Auto) 6.0 x10^3/uL (2.2-4.8) H 08/08/24 15:00 Lymph # (Auto) 0.7 X10^3/uL (1.3-2.9) L 08/08/24 15:00 [place] # (Auto) 0.4 x10^3/uL (0.3-0.8) 08/08/24 15:00 Eos # (Auto) 0.2 x10^3/uL (0.0-0.2) 08/08/24 15:00 Baso # (Auto) 0.1 X10^3/uL (0.0-0.1) 08/08/24 15:00 Absolute Nucleated RBC 0.0 /100WBC 08/08/24 15:00 Plt Morphology Comment Normal (NORMAL) 08/08/24 15:00 RBC Morphology Abnormal (NORMAL) A 08/08/24 15:00 Macrocytosis 2+ A 08/08/24 15:00 Sodium 137 mmol/L (136-145) 08/08/24 15:00 Corrected Sodium TNP 08/08/24 15:00 Potassium 3.3 mmol/L (3.5-5.1) L 08/08/24 15:00 Chloride 100 mmol/L (98-107) 08/08/24 15:00 Carbon Dioxide 28.9 mmol/L (21-32) 08/08/24 15:00 BUN 32 mg/dL (7-18) H 08/08/24 15:00 Creatinine 1.80 mg/dL (0.55-1.02) H 08/08/24 15:00 Est GFR (MDRD) Af Amer 35 (>60) L 08/08/24 15:00 Est GFR (MDRD) Non-Af 29 (>60) L 08/08/24 15:00 Glucose 92 mg/dL (65-99) 08/08/24 15:00 Lactic Acid 0.5 mmol/L (0.4-2.0) 08/08/24 15:00 Calcium 9.5 mg/dL (8.5-10.1) 08/08/24 15:00 Corrected Calcium 10.3 mg/dL (8.5-10.1) H 08/08/24 15:00 Total Bilirubin 0.40 mg/dL (0.2-1.0) 08/08/24 15:00 AST 14 Units/L (15-37) L 08/08/24 15:00 ALT < 6 Units/L (12-78) L 08/08/24 15:00 Alkaline Phosphatase 126 Units/L (46-116) H 08/08/24 15:00 Total Protein 7.0 g/dL (6.4-8.2) 08/08/24 15:00 Albumin 3.0 g/dL (3.4-5.0) L 08/08/24 15:00 Globulin 4.0 g/dL (2.5-4.5) 08/08/24 15:00 Albumin/Globulin Ratio 0.8 Ratio (1.1-2.1) L 08/08/24 15:00 Specimen Type Clean catch urine 08/08/24 15:35 Urine Color Yellow (YELLOW) 08/08/24 15:35 Urine Appearance Slightly hazy (CLEAR) 08/08/24 15:35 Urine pH 6.0 (5.0 - 8.0) 08/08/24 15:35 Ur Specific [place] 1.010 (1.000-1.030) 08/08/24 15:35 Urine Protein 2+ (NEGATIVE) 08/08/24 15:35 Urine Glucose (UA) Negative (NEGATIVE) 08/08/24 15:35 Urine Ketones Negative (NEGATIVE) 08/08/24 15:35 Urine Blood 2+ (NEGATIVE) 08/08/24 15:35 Urine Nitrite Positive (NEGATIVE) 08/08/24 15:35 Urine Bilirubin Negative (NEGATIVE) 08/08/24 15:35 Urine Urobilinogen Normal (NORMAL) 08/08/24 15:35 Ur Leukocyte Esterase 3+ (NEGATIVE) 08/08/24 15:35 Urine RBC 5-10 /HPF (0-3) A 08/08/24 15:35 Urine WBC Tntc /HPF (0-5) A 08/08/24 15:35 Ur Squamous Epith Cells Few /HPF (NEGATIVE) 08/08/24 15:35 Urine Bacteria Trace /HPF (NEGATIVE) 08/08/24 15:35 Ur Culture Indicated? No/not indicated 08/08/24 15:35 Opioid Opioid Risk Tool Age (Sebastian box if 16-45): No History of Preadolescent Sexual Abuse: No Total: 0 Total Score Risk Category: Low Risk Copyright: Nicola CLINE predicting aberrant behaviors Discharge Plan Diagnosis Discharge Problem: Vomiting, Acute UTI, Acute hypokalemia, Hypomagnesemia, Breast cancer Discharge Plan Patient Disposition: 09 ADMITTED INPATIENT Condition: Fair Prescriptions: No Action aspirin 325 mg tablet 325 mg PO QDAY PreserVision AREDS 4,296 mcg-226 mg-90 mg capsule 1 cap PO BID mecobalamin (vitamin B12) 1,000 mcg tablet,chewable 1,000 mcg PO QDAY cholecalciferol (vitamin D3) 25 mcg (1,000 unit) capsule 25 mcg PO QDAY gemfibrozil 600 mg tablet 600 mg PO QDAY tramadol 50 mg tablet 50 mg PO TID PRN temazepam 15 mg capsule 15 mg PO QPM PRN amlodipine 5 mg tablet 10 mg PO QDAY hydroxyurea 500 mg capsule 500 mg PO BID bisoprolol-hydrochlorothiazide 10-6.25 mg tablet 1 tab PO QDAY ondansetron HCl 4 mg tablet 4 mg PO Q8H PRN Rx Instructions: TAKE 30 MINUTES PRIOR TO GEMFIBROZIL amitriptyline 50 mg tablet 50 mg PO QPM lorazepam 0.5 mg tablet 0.5 mg PO TID PRN Rx Instructions: TAKE 30 MINUTES PRIOR TO GEMFIBROZIL nitrofurantoin monohyd/m-cryst 100 mg capsule 100 mg PO DAILY simvastatin 40 mg tablet 40 mg PO QPM pantoprazole 40 mg tablet,delayed release (DR/EC) 40 mg PO QDAY losartan 50 mg Tablet 50 mg PO BID 30 Days Qty: 60 0RF furosemide 20 mg tablet 20 mg PO QAM PRN (Reason: edema ) 30 Days Qty: 30 0RF Health Concerns: Post Hospitalization: new medications and changes needed to prevent readmission or further decline. Pt educated and given instructions on all concerns. Plan of Treatment: Continue with present treatment and follow up plan. Pt is to keep follow up appointment as instructed and take medications as ordered. Follow ups/Referrals Follow ups/Referrals: Onur Justice [Primary Care Provider] - 3 days
[2024-08-08 15:29] LABS: BASOPHILS # (AUTO) 0.1 X10^3/uL (0.0-0.1); BASOPHILS % (AUTO) 0.8 % (0.2-1.0); EOSINOPHILS # (AUTO) 0.2 x10^3/uL (0.0-0.2); EOSINOPHILS % (AUTO) 2.6 % (0.9-2.9); HEMATOCRIT 30.7 % (36.0-47.0); HEMOGLOBIN 10.9 g/dL (12.0-16.0); LYMPHOCYTES # (AUTO) 0.7 X10^3/uL (1.3-2.9); LYMPHOCYTES % (AUTO) 9.6 % (21.0-51.0); MEAN CORPUSCULAR HEMOGLOBIN 40.7 pg (27.0-34.0); MEAN CORPUSCULAR HGB CONC 35.6 g/dL (33.0-35.0); MEAN CORPUSCULAR VOLUME 114.3 fL (80.0-100.0); MEAN PLATELET VOLUME 7.6 fL (7.4-11.0); MONOCYTES # (AUTO) 0.4 x10^3/uL (0.3-0.8); MONOCYTES % (AUTO) 5.1 % (0.0-13.0); NEUTROPHILS % (AUTO) 81.9 % (42.0-75.0); PLATELET COUNT 270 X10^3/uL (150.0-450.0); RED BLOOD COUNT 2.69 X10^6/uL (3.5-5.4); RED CELL DISTRIBUTION WIDTH 14.6 % (11.6-16.5); WHITE BLOOD COUNT 7.4 X10^3/uL (3.6-10.0)
[2024-08-08 15:36] LABS: ALANINE AMINOTRANSFERASE < 6 Units/L (12-78); ALKALINE PHOSPHATASE 126 Units/L (46-116); ASPARTATE AMINO TRANSFERASE 14 Units/L (15-37); CALCIUM 9.5 mg/dL (8.5-10.1); CARBON DIOXIDE 28.9 mmol/L (21-32); CHLORIDE 100 mmol/L (98-107); COR CA(FOR HYPOALB) 10.3 mg/dL (8.5-10.1); POTASSIUM 3.3 mmol/L (3.5-5.1); SODIUM 137 mmol/L (136-145); eGFR NON BLACK RACES 29 (>60)
[2024-08-08 15:46] LABS: BILIRUBIN,URINE NEGATIVE (NEGATIVE); BLOOD/HEMOGLOBIN,URINE 2+ (NEGATIVE); GLUCOSE, URINE NEGATIVE (NEGATIVE); KETONES,URINE NEGATIVE (NEGATIVE); LEUKOCYTE ESTERASE ,URINE 3+ (NEGATIVE); NITRITES,URINE POSITIVE (NEGATIVE); PROTEIN,URINE 2+ (NEGATIVE); UROBILINOGEN,URINE NORMAL (NORMAL)
[2024-08-08 15:50] LABS: BLOOD UREA NITROGEN 32 mg/dL (7-18); GLUCOSE 92 mg/dL (65-99)
[2024-08-08 15:52] LABS: APPEARANCE,URINE SLIGHTLY HAZY (CLEAR); COLOR,URINE YELLOW (YELLOW)
--- NOTE | 2024-08-08 15:53 | CT ---
EXAMINATION:PELVIS W/O CONHISTORY:LEFT HIP/PELVIS PAIN, S/P MULTIPLE FALLS; .COMPARISON STUDY:AP pelvis 07/24/2024TECHNIQUE:Spiral CT scan of the pelvis was performed without IV contrast. Sagittal and coronal reformatted images were obtained.FINDINGS:Mineralization is normal.Joint spaces are preserved.There is a nondisplaced posttraumatic closed fracture of the sacrococcygeal junction best seen on the sagittal images. No other fracture or dislocation noted. Alignment and joint spaces are maintained. No osteolytic or osteoblastic lesion or radiopaque foreign bodyBladder contour is normal.Hysterectomy. No pelvic or adnexal massBowel loops are unremarkable. No free air, obstruction, abscess or free fluidThere is no evidence of inflammatory process.There are no soft tissue masses.Muscle and fat planes are maintained. No subcutaneous collection noted.IMPRESSION:Nondisplaced posttraumatic closed fracture of the sacrococcygeal junction seen best on the sagittal images.The above CT scan was done with automated exposure and the mA and kvP was adjusted to obtain quality images according to patient size.THIS IS AN ELECTRONICALLY VERIFIED FINAL [id number]/08/2024 3:50 PM - Electronically signed by Polo Sauer MD
[2024-08-08 16:02] LABS: PLATELET MORPHOLOGY COMMENT NORMAL (NORMAL)
[2024-08-08 16:09] LABS: BACTERIA,URINE TRACE /HPF (NEGATIVE)
[2024-08-08 16:12] LABS: SQUAMOUS EPITHELIAL CELL,UR FEW /HPF (NEGATIVE)
[2024-08-08] MEDS: ZOFRAN INJ 4 MG VIAL IVP ONE (18:16)
[2024-08-08] MEDS: MORPHINE SULFATE INJ 4 MG IVP ONE (18:17)
[2024-08-08] MEDS: ROCEPHIN VIAL 1 GRAM 1 G in NS 100 ML IV 100 ML IV SCH (20:23)
[2024-08-08] MEDS: NS 1,000 ML IV 1,000 ML IV SCH ×2 (20:23→21:48)
[2024-08-08] MEDS ORDERED: CONSULT PHARMACY - POTASSIUM & MAGNESIUM XX SCH (21:16)
[2024-08-08] MEDS: ELAVIL PO SCH (21:38)
[2024-08-08] MEDS: COZAAR PO SCH (21:38)
[2024-08-08] MEDS: HYDREA PO SCH (21:39)
[2024-08-08] MEDS: ZOCOR TAB 40 MG PO SCH (21:39)
[2024-08-08] MEDS: ULTRAM PO SCH (21:40)
[2024-08-08 21:45] VITALS: BMI 21.9
[2024-08-08] MEDS: RESTORIL CAP 15 MG PO PRN (21:50)
[2024-08-08] MEDS: ATIVAN TAB 0.5 MG PO PRN (21:50)
[2024-08-08] MEDS: K-DUR TAB 20 MEQ PO ONE (21:51)
[2024-08-09 06:28] LABS: BASOPHILS # (AUTO) 0.1 X10^3/uL (0.0-0.1); BASOPHILS % (AUTO) 1.1 % (0.2-1.0); EOSINOPHILS # (AUTO) 0.2 x10^3/uL (0.0-0.2); EOSINOPHILS % (AUTO) 2.9 % (0.9-2.9); HEMATOCRIT 30.3 % (36.0-47.0); HEMOGLOBIN 10.5 g/dL (12.0-16.0); LYMPHOCYTES # (AUTO) 0.8 X10^3/uL (1.3-2.9); LYMPHOCYTES % (AUTO) 12.4 % (21.0-51.0); MEAN CORPUSCULAR HEMOGLOBIN 40.1 pg (27.0-34.0); MEAN CORPUSCULAR HGB CONC 34.7 g/dL (33.0-35.0); MEAN CORPUSCULAR VOLUME 115.4 fL (80.0-100.0); MEAN PLATELET VOLUME 7.9 fL (7.4-11.0); MONOCYTES # (AUTO) 0.4 x10^3/uL (0.3-0.8); MONOCYTES % (AUTO) 5.9 % (0.0-13.0); NEUTROPHILS # (AUTO) 5.2 x10^3/uL (2.2-4.8); NEUTROPHILS % (AUTO) 77.7 % (42.0-75.0); PLATELET COUNT 259 X10^3/uL (150.0-450.0); RED BLOOD COUNT 2.62 X10^6/uL (3.5-5.4); RED CELL DISTRIBUTION WIDTH 14.7 % (11.6-16.5); WHITE BLOOD COUNT 6.7 X10^3/uL (3.6-10.0)
[2024-08-09 06:44] LABS: ALANINE AMINOTRANSFERASE 6 Units/L (12-78); ALBUMIN 2.8 g/dL (3.4-5.0); ALKALINE PHOSPHATASE 113 Units/L (46-116); ASPARTATE AMINO TRANSFERASE 18 Units/L (15-37); BLOOD UREA NITROGEN 28 mg/dL (7-18); CALCIUM 9.1 mg/dL (8.5-10.1); CARBON DIOXIDE 25.3 mmol/L (21-32); CHLORIDE 104 mmol/L (98-107); COR CA(FOR HYPOALB) 10.1 mg/dL (8.5-10.1); CREATININE 1.59 mg/dL (0.55-1.02); GLUCOSE 77 mg/dL (65-99); POTASSIUM 3.4 mmol/L (3.5-5.1); SODIUM 140 mmol/L (136-145); TOTAL PROTEIN 6.6 g/dL (6.4-8.2); eGFR NON BLACK RACES 33 (>60)
[2024-08-09 07:04] LABS: PLATELET MORPHOLOGY COMMENT NORMAL (NORMAL)
[2024-08-09] MEDS ORDERED: CONSULT PHARMACY - POTASSIUM & MAGNESIUM XX SCH (08:00)
[2024-08-09] MEDS: VITAMIN B-12 PO SCH (09:42)
[2024-08-09] MEDS: PROTONIX TAB 40 MG PO SCH (09:42)
[2024-08-09] MEDS: K-DUR TAB 20 MEQ PO SCH (09:42)
[2024-08-09] MEDS: ASPIRIN PO SCH (09:42)
[2024-08-09] MEDS: LASIX PO SCH (09:42)
[2024-08-09] MEDS: LOPID PO SCH (09:42)
[2024-08-09] MEDS: VITAMIN D3 25 mcg (1,000 UNITS) PO SCH (09:43)
[2024-08-09] MEDS: NORVASC TAB 10 MG PO SCH (09:43)
[2024-08-09] MEDS: LOVENOX INJ 30 MG SYR SC SCH (09:50)
[2024-08-09] MEDS: ZOFRAN INJ 4 MG VIAL IVP PRN (10:12)
[2024-08-09] MEDS ORDERED: CANDIDA ALBICANS SKIN TEST ID ONE (16:10)
--- NOTE | 2024-08-09 17:38 | DR.H&P ---
H&P History & Physical for Day of: H&P Date: 08/08/24 Chief Complaint Chief Complaint: WEAKNESS, FALLS History of Present Illness History of Present Illness: EMS brought patient in via stretcher following a fall at home. Pt was dx with UTI yesterday. Pt co diffuse weakness and intractable back pain. Pt has confusion. Daughter states that patient was here last night for a UTI and was given rocephin and doxy and sent home. Daughter reports that the patient is confused, combative, and non cooperative and has had 2 falls once on Tuesday and one on Tuesday, since then she has complained of left hip/buttock pain. Daughter states that patient had an xray but needs another one. Pt has a recent hx of pneumonia and was released home on supplemental o2, which she states she has been wearing. Past Medical History Past Medical History: Anxiety, Depression, Dyslipidemia and Hypertension Additional Medical History: POLYCYTHEMIA VERA Past Surgical History Surgical History: Hysterectomy Family History Family Medical History: Cancer and Heart Failure Social History Type of Tobacco Use: None Does any household member use tobacco: No Alcohol Use: None Drug Use: None Medications Home Medications: Home Medications Medication Instructions Recorded Confirmed Type amitriptyline 50 mg tablet 50 mg PO QPM 05/07/23 08/08/24 History bisoprolol 10 1 tab PO QDAY 05/07/23 08/08/24 History mg-hydrochlorothiazide 6.25 mg tablet hydroxyurea 500 mg capsule 500 mg PO BID 05/07/23 08/08/24 History lorazepam 0.5 mg tablet 0.5 mg PO TID PRN 05/07/23 08/08/24 History nitrofurantoin 100 mg PO DAILY 05/07/23 08/08/24 History monohydrate/macrocrystals 100 mg capsule ondansetron HCl 4 mg tablet 4 mg PO Q8H PRN 05/07/23 08/08/24 History pantoprazole 40 mg tablet,delayed 40 mg PO QDAY 07/24/24 08/08/24 History release simvastatin 40 mg tablet 40 mg PO QPM 07/24/24 08/08/24 History aspirin 325 mg tablet 325 mg PO QDAY 08/07/24 08/08/24 History cholecalciferol (vitamin D3) 25 25 mcg PO QDAY 08/07/24 08/08/24 History mcg (1,000 unit) capsule gemfibrozil 600 mg tablet 600 mg PO QDAY 08/07/24 08/08/24 History mecobalamin (vitamin B12) 1,000 1,000 mcg PO QDAY 08/07/24 08/08/24 History mcg chewable tablet vitamins A,C,I-byfd-vxknww 4,296 1 cap PO BID 08/07/24 08/08/24 History mcg-226 mg-90 mg capsule (PreserVision AREDS) amlodipine 5 mg tablet 10 mg PO QDAY 08/08/24 08/08/24 History temazepam 15 mg capsule 15 mg PO QPM PRN 08/08/24 08/08/24 History tramadol 50 mg tablet 50 mg PO TID PRN 08/08/24 08/08/24 History Allergies Allergies Allergy/AdvReac Type Severity Reaction Status Date / Time Sulfa (Sulfonamide Allergy RASH Verified 08/08/24 12:34 Antibiotics) [SULFA] Labs 08/09/24 05:29 08/09/24 05:29 Labs: Laboratory WBC 6.7 X10^3/uL (3.6-10.0) 08/09/24 05:29 RBC 2.62 X10^6/uL (3.5-5.4) L 08/09/24 05:29 Hgb 10.5 g/dL (12.0-16.0) L 08/09/24 05:29 Hct 30.3 % (36.0-47.0) L 08/09/24 05:29 MCV 115.4 fL (80.0-100.0) H 08/09/24 05:29 MCH 40.1 pg (27.0-34.0) H 08/09/24 05:29 MCHC 34.7 g/dL (33.0-35.0) 08/09/24 05:29 RDW 14.7 % (11.6-16.5) 08/09/24 05:29 Plt Count 259 X10^3/uL (150.0-450.0) 08/09/24 05:29 Plt Count Comment Adequate (ADEQUATE) 08/09/24 05:29 MPV 7.9 fL (7.4-11.0) 08/09/24 05:29 Neut % (Auto) 77.7 % (42.0-75.0) H 08/09/24 05:29 Lymph % (Auto) 12.4 % (21.0-51.0) L 08/09/24 05:29 [place] % (Auto) 5.9 % (0.0-13.0) 08/09/24 05:29 Eos % (Auto) 2.9 % (0.9-2.9) 08/09/24 05:29 Baso % (Auto) 1.1 % (0.2-1.0) H 08/09/24 05:29 Neut # (Auto) 5.2 x10^3/uL (2.2-4.8) H 08/09/24 05:29 Lymph # (Auto) 0.8 X10^3/uL (1.3-2.9) L 08/09/24 05:29 [place] # (Auto) 0.4 x10^3/uL (0.3-0.8) 08/09/24 05:29 Eos # (Auto) 0.2 x10^3/uL (0.0-0.2) 08/09/24 05:29 Baso # (Auto) 0.1 X10^3/uL (0.0-0.1) 08/09/24 05:29 Absolute Nucleated RBC 0.0 /100WBC 08/09/24 05:29 Plt Morphology Comment Normal (NORMAL) 08/09/24 05:29 RBC Morphology Abnormal (NORMAL) A 08/09/24 05:29 Macrocytosis 3+ A 08/09/24 05:29 Sodium 140 mmol/L (136-145) 08/09/24 05:29 Corrected Sodium TNP 08/09/24 05:29 Potassium 3.4 mmol/L (3.5-5.1) L 08/09/24 05:29 Chloride 104 mmol/L (98-107) 08/09/24 05:29 Carbon Dioxide 25.3 mmol/L (21-32) 08/09/24 05:29 BUN 28 mg/dL (7-18) H 08/09/24 05:29 Creatinine 1.59 mg/dL (0.55-1.02) H 08/09/24 05:29 Est GFR (MDRD) Af Amer 40 (>60) L 08/09/24 05:29 Est GFR (MDRD) Non-Af 33 (>60) L 08/09/24 05:29 Glucose 77 mg/dL (65-99) 08/09/24 05:29 Lactic Acid 0.5 mmol/L (0.4-2.0) 08/08/24 15:00 Calcium 9.1 mg/dL (8.5-10.1) 08/09/24 05:29 Corrected Calcium 10.1 mg/dL (8.5-10.1) 08/09/24 05:29 Magnesium 2.0 mg/dL (2.0-2.9) 08/09/24 05:29 Total Bilirubin 0.30 mg/dL (0.2-1.0) 08/09/24 05:29 AST 18 Units/L (15-37) 08/09/24 05:29 ALT 6 Units/L (12-78) L 08/09/24 05:29 Alkaline Phosphatase 113 Units/L (46-116) 08/09/24 05:29 Total Protein 6.6 g/dL (6.4-8.2) 08/09/24 05:29 Albumin 2.8 g/dL (3.4-5.0) L 08/09/24 05:29 Globulin 3.8 g/dL (2.5-4.5) 08/09/24 05:29 Albumin/Globulin Ratio 0.7 Ratio (1.1-2.1) L 08/09/24 05:29 Specimen Type Clean catch urine 08/08/24 15:35 Urine Color Yellow (YELLOW) 08/08/24 15:35 Urine Appearance Slightly hazy (CLEAR) 08/08/24 15:35 Urine pH 6.0 (5.0 - 8.0) 08/08/24 15:35 Ur Specific [place] 1.010 (1.000-1.030) 08/08/24 15:35 Urine Protein 2+ (NEGATIVE) 08/08/24 15:35 Urine Glucose (UA) Negative (NEGATIVE) 08/08/24 15:35 Urine Ketones Negative (NEGATIVE) 08/08/24 15:35 Urine Blood 2+ (NEGATIVE) 08/08/24 15:35 Urine Nitrite Positive (NEGATIVE) 08/08/24 15:35 Urine Bilirubin Negative (NEGATIVE) 08/08/24 15:35 Urine Urobilinogen Normal (NORMAL) 08/08/24 15:35 Ur Leukocyte Esterase 3+ (NEGATIVE) 08/08/24 15:35 Urine RBC 5-10 /HPF (0-3) A 08/08/24 15:35 Urine WBC Tntc /HPF (0-5) A 08/08/24 15:35 Ur Squamous Epith Cells Few /HPF (NEGATIVE) 08/08/24 15:35 Urine Bacteria Trace /HPF (NEGATIVE) 08/08/24 15:35 Ur Culture Indicated? No/not indicated 08/08/24 15:35 Review of Systems Constitutional: Weakness and Malaise Eyes: No Symptoms Reported ENT: No Symptoms Reported Respiratory: Shortness of Breath Cardiovascular: Edema Gastrointestinal: Nausea Genitourinary: Dysuria and Incontinence Musculoskeletal: Back Pain Skin: Bruising Neurological: Weakness and Confusion Physical Exam Vital Signs: Vital Signs Temperature 97.9 F Temperature 97.7 F Pulse Rate [Right] 66 Pulse Rate [Right] 58 Respiratory Rate 20 Respiratory Rate 18 Respiratory Rate 18 Respiratory Rate 18 Blood Pressure [Right Arm] 169/89 Blood Pressure [Right Arm] 139/64 O2 Sat by Pulse Oximetry 95 O2 Sat by Pulse Oximetry 91 Oriented: Person Eyes: Normal Ear: Normal Nose: Normal Throat: Normal Respiratory: Diminished Throughout Cardiovascular: Edema : Normal Auscultation: Bowel Sounds: Normal Palpation: Normal Tenderness: Normal Skin: Decreased Turgur and Bruising Musculoskeletal: Back:Thoracic, Back:Lumbar and Motor Deficit Psychiatric: Normal Mood Description: Depressed Affect: Depressed Speech Pattern: Clear and Appropriate Assessment/Plan (1) AMS (altered mental status): Status: Acute Plan: ADMIT, SUSPECT DUE TO UTI UC AND BC ON ADMISSION VERIFY HOME MEDICATIONS, IV ATBX THERAPY IV HYDRATION WITH STRICT I&O BP CONTROL, SUPPLEMENTAL O2 AND RESP THERAPY CONSULT PT/OT (2) Acute UTI: Status: Acute (3) Generalized weakness: Status: Acute (4) Polycythemia vera: Status: Acute (5) HTN (hypertension): Qualifiers: Hypertension type: primary hypertension Qualified Code(s): I10 - Essential (primary) hypertension Status: Acute (6) Closed sacral fracture: Status: Acute (7) Acute hypokalemia: Status: Acute (8) Frequent falls: Status: Acute
--- NOTE | 2024-08-09 17:47 | PCM.PROG ---
Progress Note Progress Note for Day of Date of Exam: 08/09/24 Subjective Subjective: PT IS 84 WF, PT OF DR MENEZES'S PP, ADMITTED WITH WEAKNESS WITH MULTPLE RECENTS FALLS AND CONFUSION DUE TO UTI. PT HAS UNCONTROLLED PAIN DUE TO ACUTE SACRAL FRACTURE. PT'S UC WAS +ECOLI, SENSATIVE TO CURRENT ANTIBIOTIC TREATMENT. PT WB 6.7,HGB 10.5, BUN 28CREAT 1.59. PT'S NS DECREASED TO 50CC/HR WITH CONTINUE ENCOURAGEMENT OF ORAL HYDRATION. PT HAS CONTINUED CO SOB WORSE ON EXERTION. PT IS ON SUPPLEMENTAL O2 AT 3L. BC OBTAINED ON ADMISSION ARE PENDING. DO TO MULTIPLE FALLS AND EXTENDED WEAKNESS FOLLOWING HER LAST HOSPITALIZATION, PT WOULD BENEFIT FROM SWING BED THERAPY WITH ACUTE ILLNESS IS STABLE. PLAN TO CONSULT CASE MANAGEMENT FOR PLACEMENT Past Medical Family Social History Allergies: Allergies Sulfa (Sulfonamide Antibiotics) [SULFA] Allergy (Verified 08/08/24 12:34) RASH Vital Signs and I&O's Vital Signs: Vital Signs Temperature 97.9 F Temperature 97.7 F Pulse Rate [Right] 66 Pulse Rate [Right] 58 Respiratory Rate 20 Respiratory Rate 18 Respiratory Rate 18 Respiratory Rate 18 Blood Pressure [Right Arm] 169/89 Blood Pressure [Right Arm] 139/64 O2 Sat by Pulse Oximetry 95 O2 Sat by Pulse Oximetry 91 Intake and Output: Intake & Output 08/07/24 08/08/24 08/09/24 08/10/24 11:59 11:59 11:59 11:59 Intake Total 777 / 777 1755 / 1755 Balance 777 / 777 1755 / 1755 Physical Exam Oriented: Person Eyes: Normal Ear: Normal Nose: Normal Throat: Normal Respiratory: Diminished Cardiovascular: Edema : Normal Auscultation: Bowel Sounds: Normal Tenderness: Normal Skin: Decreased Turgur and Bruising Musculoskeletal: Back:Thoracic, Back:Lumbar and Motor Deficit Psychiatric: Normal Mood Description: Depressed Affect: Depressed Speech Pattern: Clear and Appropriate Laboratory and Diagnostics 08/09/24 05:29 08/09/24 05:29 Labs: Laboratory WBC 6.7 X10^3/uL (3.6-10.0) 08/09/24 05:29 RBC 2.62 X10^6/uL (3.5-5.4) L 08/09/24 05:29 Hgb 10.5 g/dL (12.0-16.0) L 08/09/24 05:29 Hct 30.3 % (36.0-47.0) L 08/09/24 05:29 MCV 115.4 fL (80.0-100.0) H 08/09/24 05:29 MCH 40.1 pg (27.0-34.0) H 08/09/24 05:29 MCHC 34.7 g/dL (33.0-35.0) 08/09/24 05:29 RDW 14.7 % (11.6-16.5) 08/09/24 05:29 Plt Count 259 X10^3/uL (150.0-450.0) 08/09/24 05:29 Plt Count Comment Adequate (ADEQUATE) 08/09/24 05:29 MPV 7.9 fL (7.4-11.0) 08/09/24 05:29 Neut % (Auto) 77.7 % (42.0-75.0) H 08/09/24 05:29 Lymph % (Auto) 12.4 % (21.0-51.0) L 08/09/24 05:29 [place] % (Auto) 5.9 % (0.0-13.0) 08/09/24 05:29 Eos % (Auto) 2.9 % (0.9-2.9) 08/09/24 05:29 Baso % (Auto) 1.1 % (0.2-1.0) H 08/09/24 05:29 Neut # (Auto) 5.2 x10^3/uL (2.2-4.8) H 08/09/24 05:29 Lymph # (Auto) 0.8 X10^3/uL (1.3-2.9) L 08/09/24 05:29 [place] # (Auto) 0.4 x10^3/uL (0.3-0.8) 08/09/24 05:29 Eos # (Auto) 0.2 x10^3/uL (0.0-0.2) 08/09/24 05:29 Baso # (Auto) 0.1 X10^3/uL (0.0-0.1) 08/09/24 05:29 Absolute Nucleated RBC 0.0 /100WBC 08/09/24 05:29 Plt Morphology Comment Normal (NORMAL) 08/09/24 05:29 RBC Morphology Abnormal (NORMAL) A 08/09/24 05:29 Macrocytosis 3+ A 08/09/24 05:29 Sodium 140 mmol/L (136-145) 08/09/24 05:29 Corrected Sodium TNP 08/09/24 05:29 Potassium 3.4 mmol/L (3.5-5.1) L 08/09/24 05:29 Chloride 104 mmol/L (98-107) 08/09/24 05:29 Carbon Dioxide 25.3 mmol/L (21-32) 08/09/24 05:29 BUN 28 mg/dL (7-18) H 08/09/24 05:29 Creatinine 1.59 mg/dL (0.55-1.02) H 08/09/24 05:29 Est GFR (MDRD) Af Amer 40 (>60) L 08/09/24 05:29 Est GFR (MDRD) Non-Af 33 (>60) L 08/09/24 05:29 Glucose 77 mg/dL (65-99) 08/09/24 05:29 Lactic Acid 0.5 mmol/L (0.4-2.0) 08/08/24 15:00 Calcium 9.1 mg/dL (8.5-10.1) 08/09/24 05:29 Corrected Calcium 10.1 mg/dL (8.5-10.1) 08/09/24 05:29 Magnesium 2.0 mg/dL (2.0-2.9) 08/09/24 05:29 Total Bilirubin 0.30 mg/dL (0.2-1.0) 08/09/24 05:29 AST 18 Units/L (15-37) 08/09/24 05:29 ALT 6 Units/L (12-78) L 08/09/24 05:29 Alkaline Phosphatase 113 Units/L (46-116) 08/09/24 05:29 Total Protein 6.6 g/dL (6.4-8.2) 08/09/24 05:29 Albumin 2.8 g/dL (3.4-5.0) L 08/09/24 05:29 Globulin 3.8 g/dL (2.5-4.5) 08/09/24 05:29 Albumin/Globulin Ratio 0.7 Ratio (1.1-2.1) L 08/09/24 05:29 Specimen Type Clean catch urine 08/08/24 15:35 Urine Color Yellow (YELLOW) 08/08/24 15:35 Urine Appearance Slightly hazy (CLEAR) 08/08/24 15:35 Urine pH 6.0 (5.0 - 8.0) 08/08/24 15:35 Ur Specific [place] 1.010 (1.000-1.030) 08/08/24 15:35 Urine Protein 2+ (NEGATIVE) 08/08/24 15:35 Urine Glucose (UA) Negative (NEGATIVE) 08/08/24 15:35 Urine Ketones Negative (NEGATIVE) 08/08/24 15:35 Urine Blood 2+ (NEGATIVE) 08/08/24 15:35 Urine Nitrite Positive (NEGATIVE) 08/08/24 15:35 Urine Bilirubin Negative (NEGATIVE) 08/08/24 15:35 Urine Urobilinogen Normal (NORMAL) 08/08/24 15:35 Ur Leukocyte Esterase 3+ (NEGATIVE) 08/08/24 15:35 Urine RBC 5-10 /HPF (0-3) A 08/08/24 15:35 Urine WBC Tntc /HPF (0-5) A 08/08/24 15:35 Ur Squamous Epith Cells Few /HPF (NEGATIVE) 08/08/24 15:35 Urine Bacteria Trace /HPF (NEGATIVE) 08/08/24 15:35 Ur Culture Indicated? No/not indicated 08/08/24 15:35 Plan (1) AMS (altered mental status): Status: Acute Plan: DUE TO UTI UC AND BC ON ADMISSION VERIFY HOME MEDICATIONS, IV ATBX THERAPY IV HYDRATION WITH STRICT I&O BP CONTROL, SUPPLEMENTAL O2 AND RESP THERAPY CONSULT PT/OT (2) Acute UTI: Status: Acute (3) Generalized weakness: Status: Acute (4) Polycythemia vera: Status: Acute (5) HTN (hypertension): Status: Acute Qualifiers: Hypertension type: primary hypertension Qualified Code(s): I10 - Essential (primary) hypertension (6) Closed sacral fracture: Status: Acute (7) Acute hypokalemia: Status: Acute (8) Frequent falls: Status: Acute
[2024-08-09] MEDS: APLISOL ID ONE (17:49)
[2024-08-10 06:15] LABS: ALANINE AMINOTRANSFERASE < 6 Units/L (12-78); ALBUMIN 2.4 g/dL (3.4-5.0); ALKALINE PHOSPHATASE 108 Units/L (46-116); ASPARTATE AMINO TRANSFERASE 14 Units/L (15-37); BLOOD UREA NITROGEN 22 mg/dL (7-18); CALCIUM 8.7 mg/dL (8.5-10.1); CARBON DIOXIDE 23.7 mmol/L (21-32); CHLORIDE 107 mmol/L (98-107); CREATININE 1.28 mg/dL (0.55-1.02); GLUCOSE 90 mg/dL (65-99); POTASSIUM 3.1 mmol/L (3.5-5.1); SODIUM 140 mmol/L (136-145); TOTAL PROTEIN 5.9 g/dL (6.4-8.2); eGFR NON BLACK RACES 42 (>60)
[2024-08-10 06:17] LABS: BASOPHILS # (AUTO) 0.1 X10^3/uL (0.0-0.1); EOSINOPHILS # (AUTO) 0.2 x10^3/uL (0.0-0.2); EOSINOPHILS % (AUTO) 3.2 % (0.9-2.9); HEMATOCRIT 27.1 % (36.0-47.0); HEMOGLOBIN 9.5 g/dL (12.0-16.0); LYMPHOCYTES # (AUTO) 0.6 X10^3/uL (1.3-2.9); LYMPHOCYTES % (AUTO) 10.1 % (21.0-51.0); MEAN CORPUSCULAR HEMOGLOBIN 41.1 pg (27.0-34.0); MEAN CORPUSCULAR HGB CONC 35.2 g/dL (33.0-35.0); MEAN CORPUSCULAR VOLUME 116.5 fL (80.0-100.0); MEAN PLATELET VOLUME 7.4 fL (7.4-11.0); MONOCYTES # (AUTO) 0.4 x10^3/uL (0.3-0.8); MONOCYTES % (AUTO) 6.2 % (0.0-13.0); NEUTROPHILS # (AUTO) 4.6 x10^3/uL (2.2-4.8); NEUTROPHILS % (AUTO) 79.5 % (42.0-75.0); PLATELET COUNT 221 X10^3/uL (150.0-450.0); RED BLOOD COUNT 2.33 X10^6/uL (3.5-5.4); RED CELL DISTRIBUTION WIDTH 14.5 % (11.6-16.5); WHITE BLOOD COUNT 5.7 X10^3/uL (3.6-10.0)
[2024-08-10 07:00] LABS: PLATELET MORPHOLOGY COMMENT NORMAL (NORMAL)
[2024-08-10] MEDS ORDERED: CONSULT PHARMACY - POTASSIUM & MAGNESIUM XX SCH (07:00)
[2024-08-10] MEDS: ROCEPHIN VIAL 1 GRAM 1 G in NS 100 ML IV 100 ML IV SCH (08:12)
[2024-08-10] MEDS: K-DUR TAB 20 MEQ PO SCH (08:17)
[2024-08-10] MEDS ORDERED: MILK OF MAGNESIA PO PRN (08:58)
--- NOTE | 2024-08-10 09:34 | RAD ---
EXAM:CHEST, 1 VIEWHISTORY:hx chf, sob;COMPARISON:08/07/2024FINDINGS:The cardiomediastinal silhouette is stable. Similar elevation of the right hemidiaphragm.Scattered bilateral opacities. No pneumothorax or effusion.No acute osseous abnormality.IMPRESSION:Bilateral opacities which may reflect atelectasis, edema, or pneumonia. Continued follow-up recommended.THIS IS AN ELECTRONICALLY VERIFIED FINAL [id number]/10/2024 9:30 AM - Electronically signed by Stephen Gilman MD
--- NOTE | 2024-08-10 09:51 | RAD ---
EXAMINATION: ANKLE, LEFT HISTORY: ankle swollen and tender; . COMPARISON STUDY: None. TECHNIQUE: Three views obtained FINDINGS: There is no acute fracture or dislocation. Alignment and joint spaces are maintained. The ankle mor tise is intact. No osteolytic or osteoblastic lesions noted. No radiopaque foreign body. Soft tiss ue swelling over both malleoli.. Mineralization normal.Plantar spur. No erosive changes, bony destr uction or subcutaneous emphysema. IMPRESSION: No acute process. THIS IS AN ELECTRONICALLY VERIFIED FINAL REPORT 08/10/2024 9:47 AM - Electronically signed by Polo Sauer MD
[2024-08-10] MEDS: APLISOL ID ONE (11:33)
[2024-08-10] MEDS: COLACE CAP 100 MG PO SCH (21:01)
[2024-08-11 06:47] LABS: LYMPHOCYTES # (AUTO) 0.6 X10^3/uL (1.3-2.9); MEAN CORPUSCULAR HEMOGLOBIN 40.9 pg (27.0-34.0); MONOCYTES # (AUTO) 0.2 x10^3/uL (0.3-0.8); NEUTROPHILS # (AUTO) 3.6 x10^3/uL (2.2-4.8); WHITE BLOOD COUNT 4.6 X10^3/uL (3.6-10.0)
[2024-08-11 06:54] LABS: BASOPHILS % (AUTO) 0.9 % (0.2-1.0); EOSINOPHILS # (AUTO) 0.2 x10^3/uL (0.0-0.2); EOSINOPHILS % (AUTO) 3.3 % (0.9-2.9); HEMATOCRIT 25.2 % (36.0-47.0); HEMOGLOBIN 8.9 g/dL (12.0-16.0); LYMPHOCYTES % (AUTO) 12.8 % (21.0-51.0); MEAN CORPUSCULAR HGB CONC 35.3 g/dL (33.0-35.0); MEAN CORPUSCULAR VOLUME 116.1 fL (80.0-100.0); MEAN PLATELET VOLUME 7.4 fL (7.4-11.0); MONOCYTES % (AUTO) 4.8 % (0.0-13.0); NEUTROPHILS % (AUTO) 78.2 % (42.0-75.0); PLATELET COUNT 206 X10^3/uL (150.0-450.0); RED BLOOD COUNT 2.17 X10^6/uL (3.5-5.4); RED CELL DISTRIBUTION WIDTH 14.7 % (11.6-16.5)
[2024-08-11 06:56] LABS: ALANINE AMINOTRANSFERASE < 6 Units/L (12-78); ALBUMIN 2.3 g/dL (3.4-5.0); ALKALINE PHOSPHATASE 106 Units/L (46-116); ASPARTATE AMINO TRANSFERASE 13 Units/L (15-37); BLOOD UREA NITROGEN 16 mg/dL (7-18); CALCIUM 8.7 mg/dL (8.5-10.1); CARBON DIOXIDE 22.7 mmol/L (21-32); CHLORIDE 109 mmol/L (98-107); COR CA(FOR HYPOALB) 10.1 mg/dL (8.5-10.1); CREATININE 1.09 mg/dL (0.55-1.02); GLUCOSE 81 mg/dL (65-99); MAGNESIUM 1.6 mg/dL (2.0-2.9); POTASSIUM 3.3 mmol/L (3.5-5.1); SODIUM 141 mmol/L (136-145); TOTAL PROTEIN 5.8 g/dL (6.4-8.2); eGFR NON BLACK RACES 51 (>60)
[2024-08-11 07:19] LABS: PLATELET MORPHOLOGY COMMENT NORMAL (NORMAL)
[2024-08-11] MEDS: MAG-OX TAB PO SCH (08:49)
[2024-08-11] MEDS: K-DUR TAB 20 MEQ PO SCH (08:52)
[2024-08-11] MEDS: CONSULT PHARMACY - POTASSIUM & MAGNESIUM XX SCH (11:03)
[2024-08-11] MEDS: TOPROL XL PO SCH (15:35)
[2024-08-11] MEDS: ZOFRAN INJ 4 MG VIAL IVP PRN (15:37)
[2024-08-11] MEDS ORDERED: COLACE CAP 100 MG PO PRN (18:38)
[2024-08-11] MEDS ORDERED: ANUCORT-HC SUPP PR PRN (18:54)
[2024-08-11] MEDS: MILK OF MAGNESIA PO PRN (20:26)
--- NOTE | 2024-08-11 21:05 | PCM.PROG ---
Progress Note Progress Note for Day of Date of Exam: 08/11/24 Subjective Subjective: The patient has a history of hypertension and is being treated with Losartan 50mg twice daily and amlodipine, which was recently reduced from 10mg to 5mg daily. The patient also has a blood disorder for which she takes hydroxyurea. She has polycythemia. The patient has chronic kidney disease, estimated to be low stage 2 or upper stage 3Ano history of diabetes or congestive heart failure. The patient reports having some lung problems. Clinical observation: 1. Patient reports feeling nauseated. 2. Blood pressure elevated at 162/76 this morning. 3. Estimated GFR is 51, indicating chronic kidney disease. 4. Normal white blood cell count at 4,600. 5. Hemoglobin low at 8.9, dropped from 9.5 yesterday and 10.5 the day before. 6. Heart murmur detected during examination, possibly positional. 7. Patient reports being able to eat, but not a lot. Had eggs for breakfast. 8. The patient appears anxious, possibly due to concerns about her being moved to a assisted living facility temporarily for physical therapy. Past Medical Family Social History Allergies: Allergies Sulfa (Sulfonamide Antibiotics) [SULFA] Allergy (Verified 08/08/24 12:34) RASH Review of Systems ROS: No change since H&P Vital Signs and I&O's Vital Signs: Vital Signs Temperature 98.1 F Temperature 98.2 F Pulse Rate [Right] 78 Pulse Rate [Right] 79 Respiratory Rate 19 Respiratory Rate 18 Respiratory Rate 20 Respiratory Rate 20 Blood Pressure [Right Arm] 178/74 Blood Pressure [Right Arm] 159/79 O2 Sat by Pulse Oximetry 97 O2 Sat by Pulse Oximetry 96 Intake and Output: Intake & Output 08/09/24 08/10/24 08/11/24 08/12/24 11:59 11:59 11:59 11:59 Intake Total 777 / 777 3291 / 3291 1960 450 / 450 Balance 777 / 777 3291 / 3291 1960 450 / 450 Physical Exam Oriented: Person Eyes: Normal Ear: Normal Nose: Normal Throat: Normal Respiratory: Diminished Cardiovascular: Edema : Normal Auscultation: Bowel Sounds: Normal Tenderness: Normal Skin: Decreased Turgur and Bruising Musculoskeletal: Back:Thoracic, Back:Lumbar and Motor Deficit Psychiatric: Normal Mood Description: Depressed Affect: Depressed Speech Pattern: Clear and Appropriate Laboratory and Diagnostics 08/11/24 06:03 08/11/24 06:03 Labs: 08/08/24 15:05 Blood Blood Culture - Preliminary 08/08/24 15:00 Blood Blood Culture - Preliminary Laboratory WBC 4.6 X10^3/uL (3.6-10.0) 08/11/24 06:03 RBC 2.17 X10^6/uL (3.5-5.4) L 08/11/24 06:03 Hgb 8.9 g/dL (12.0-16.0) L 08/11/24 06:03 Hct 25.2 % (36.0-47.0) L 08/11/24 06:03 MCV 116.1 fL (80.0-100.0) H 08/11/24 06:03 MCH 40.9 pg (27.0-34.0) H 08/11/24 06:03 MCHC 35.3 g/dL (33.0-35.0) H 08/11/24 06:03 RDW 14.7 % (11.6-16.5) 08/11/24 06:03 Plt Count 206 X10^3/uL (150.0-450.0) 08/11/24 06:03 Plt Count Comment Adequate (ADEQUATE) 08/11/24 06:03 MPV 7.4 fL (7.4-11.0) 08/11/24 06:03 Neut % (Auto) 78.2 % (42.0-75.0) H 08/11/24 06:03 Lymph % (Auto) 12.8 % (21.0-51.0) L 08/11/24 06:03 [place] % (Auto) 4.8 % (0.0-13.0) 08/11/24 06:03 Eos % (Auto) 3.3 % (0.9-2.9) H 08/11/24 06:03 Baso % (Auto) 0.9 % (0.2-1.0) 08/11/24 06:03 Neut # (Auto) 3.6 x10^3/uL (2.2-4.8) 08/11/24 06:03 Lymph # (Auto) 0.6 X10^3/uL (1.3-2.9) L 08/11/24 06:03 [place] # (Auto) 0.2 x10^3/uL (0.3-0.8) L 08/11/24 06:03 Eos # (Auto) 0.2 x10^3/uL (0.0-0.2) 08/11/24 06:03 Baso # (Auto) 0.0 X10^3/uL (0.0-0.1) 08/11/24 06:03 Absolute Nucleated RBC 0.0 /100WBC 08/11/24 06:03 Plt Morphology Comment Normal (NORMAL) 08/11/24 06:03 RBC Morphology Abnormal (NORMAL) A 08/11/24 06:03 Macrocytosis 3+ A 08/11/24 06:03 Sodium 141 mmol/L (136-145) 08/11/24 06:03 Corrected Sodium TNP 08/11/24 06:03 Potassium 3.3 mmol/L (3.5-5.1) L 08/11/24 06:03 Chloride 109 mmol/L (98-107) H 08/11/24 06:03 Carbon Dioxide 22.7 mmol/L (21-32) 08/11/24 06:03 BUN 16 mg/dL (7-18) 08/11/24 06:03 Creatinine 1.09 mg/dL (0.55-1.02) H 08/11/24 06:03 Est GFR (MDRD) Af Amer > 60 (>60) 08/11/24 06:03 Est GFR (MDRD) Non-Af 51 (>60) L 08/11/24 06:03 Glucose 81 mg/dL (65-99) 08/11/24 06:03 Lactic Acid 0.5 mmol/L (0.4-2.0) 08/08/24 15:00 Calcium 8.7 mg/dL (8.5-10.1) 08/11/24 06:03 Corrected Calcium 10.1 mg/dL (8.5-10.1) 08/11/24 06:03 Magnesium 1.6 mg/dL (2.0-2.9) L 08/11/24 06:03 Total Bilirubin 0.30 mg/dL (0.2-1.0) 08/11/24 06:03 AST 13 Units/L (15-37) L 08/11/24 06:03 ALT < 6 Units/L (12-78) L 08/11/24 06:03 Alkaline Phosphatase 106 Units/L (46-116) 08/11/24 06:03 Total Protein 5.8 g/dL (6.4-8.2) L 08/11/24 06:03 Albumin 2.3 g/dL (3.4-5.0) L 08/11/24 06:03 Globulin 3.5 g/dL (2.5-4.5) 08/11/24 06:03 Albumin/Globulin Ratio 0.7 Ratio (1.1-2.1) L 08/11/24 06:03 Specimen Type Clean catch urine 08/08/24 15:35 Urine Color Yellow (YELLOW) 08/08/24 15:35 Urine Appearance Slightly hazy (CLEAR) 08/08/24 15:35 Urine pH 6.0 (5.0 - 8.0) 08/08/24 15:35 Ur Specific [place] 1.010 (1.000-1.030) 08/08/24 15:35 Urine Protein 2+ (NEGATIVE) 08/08/24 15:35 Urine Glucose (UA) Negative (NEGATIVE) 08/08/24 15:35 Urine Ketones Negative (NEGATIVE) 08/08/24 15:35 Urine Blood 2+ (NEGATIVE) 08/08/24 15:35 Urine Nitrite Positive (NEGATIVE) 08/08/24 15:35 Urine Bilirubin Negative (NEGATIVE) 08/08/24 15:35 Urine Urobilinogen Normal (NORMAL) 08/08/24 15:35 Ur Leukocyte Esterase 3+ (NEGATIVE) 08/08/24 15:35 Urine RBC 5-10 /HPF (0-3) A 08/08/24 15:35 Urine WBC Tntc /HPF (0-5) A 08/08/24 15:35 Ur Squamous Epith Cells Few /HPF (NEGATIVE) 08/08/24 15:35 Urine Bacteria Trace /HPF (NEGATIVE) 08/08/24 15:35 Ur Culture Indicated? No/not indicated 08/08/24 15:35 S. pyogenes (TEM-PCR) Not detected (NOT DETECT) 08/11/24 11:23 Plan (1) AMS (altered mental status): Status: Acute Plan: DUE TO UTI UC AND BC ON ADMISSION VERIFY HOME MEDICATIONS, IV ATBX THERAPY IV HYDRATION WITH STRICT I&O BP CONTROL, SUPPLEMENTAL O2 AND RESP THERAPY CONSULT PT/OT (2) Acute UTI: Status: Acute (3) Generalized weakness: Status: Acute (4) Polycythemia vera: Status: Acute (5) HTN (hypertension): Status: Acute Qualifiers: Hypertension type: primary hypertension Qualified Code(s): I10 - Essential (primary) hypertension (6) Closed sacral fracture: Status: Acute (7) Acute hypokalemia: Status: Acute (8) Frequent falls: Status: Acute (9) Anxiety as acute reaction to exceptional stress: Status: Acute Plan: Plan/Recommendations Increase ondansetron (Zofran) from 4mg to 8mg for nausea. Start metoprolol ER 25mg once daily for blood pressure control. If blood pressure remains high, consider increasing to 50mg daily. Continue Losartan 50mg twice daily and amlodipine 5mg daily. Administer Ativan and Zofran together before morning medications and breakfast. Monitor hemoglobin levels due to recent drop. Consider discharge this afternoon if condition improves. No changes to current hydroxyurea regimen for blood disorder.
[2024-08-12 06:37] LABS: BASOPHILS % (AUTO) 0.9 % (0.2-1.0); EOSINOPHILS # (AUTO) 0.1 x10^3/uL (0.0-0.2); EOSINOPHILS % (AUTO) 2.5 % (0.9-2.9); HEMOGLOBIN 9.9 g/dL (12.0-16.0); LYMPHOCYTES # (AUTO) 0.6 X10^3/uL (1.3-2.9); LYMPHOCYTES % (AUTO) 10.9 % (21.0-51.0); MEAN CORPUSCULAR HEMOGLOBIN 40.8 pg (27.0-34.0); MEAN CORPUSCULAR HGB CONC 35.3 g/dL (33.0-35.0); MEAN CORPUSCULAR VOLUME 115.6 fL (80.0-100.0); MEAN PLATELET VOLUME 6.9 fL (7.4-11.0); MONOCYTES # (AUTO) 0.3 x10^3/uL (0.3-0.8); MONOCYTES % (AUTO) 5.3 % (0.0-13.0); NEUTROPHILS # (AUTO) 4.2 x10^3/uL (2.2-4.8); NEUTROPHILS % (AUTO) 80.4 % (42.0-75.0); PLATELET COUNT 216 X10^3/uL (150.0-450.0); RED BLOOD COUNT 2.42 X10^6/uL (3.5-5.4); RED CELL DISTRIBUTION WIDTH 14.9 % (11.6-16.5); WHITE BLOOD COUNT 5.2 X10^3/uL (3.6-10.0)
[2024-08-12 06:51] LABS: ALANINE AMINOTRANSFERASE 10 Units/L (12-78); ALBUMIN 2.6 g/dL (3.4-5.0); ALKALINE PHOSPHATASE 118 Units/L (46-116); ASPARTATE AMINO TRANSFERASE 17 Units/L (15-37); BLOOD UREA NITROGEN 14 mg/dL (7-18); CALCIUM 8.9 mg/dL (8.5-10.1); CARBON DIOXIDE 24.9 mmol/L (21-32); CHLORIDE 106 mmol/L (98-107); CREATININE 1.03 mg/dL (0.55-1.02); GLUCOSE 79 mg/dL (65-99); POTASSIUM 4.3 mmol/L (3.5-5.1); SODIUM 139 mmol/L (136-145); TOTAL PROTEIN 6.5 g/dL (6.4-8.2); eGFR NON BLACK RACES 54 (>60)
[2024-08-12 07:31] LABS: PLATELET MORPHOLOGY COMMENT NORMAL (NORMAL)
[2024-08-12 12:32] LABS: RETICULOCYTE % 1.57 % (0.8-2.2)
[2024-08-12 13:13] LABS: IRON 54 ug/dL (50-175); TOTAL IRON BINDING CAPACITY 272 ug/dL (250-450)
--- NOTE | 2024-08-12 22:05 | PCM.PROG ---
Progress Note Progress Note for Day of Date of Exam: 08/12/24 Subjective Subjective: Subjective: - Presenting with sore throat: "little bit of sore throat this morning" ("I don 't know if it's from the dryness of the oxygen")the patient states that is better since humidifying her oxygen therapy. - Currently receiving oxygen therapy with humidification - Reports shortness of breath: "Yes" when asked about feeling short of breath - Using incentive spirometry for respiratory exercises: "This morning, we did that, and I tried to do it if I don't go to sleep" - Significant weakness noted, affecting mobility and increasing fall risk - Recent injury to ankle: "I can stand on the ball of my foot now, but the ankle is still" ("they did X rays and everything") Past Medical Family Social History Allergies: Allergies Sulfa (Sulfonamide Antibiotics) [SULFA] Allergy (Verified 08/08/24 12:34) RASH Review of Systems ROS: Changes notes (describe) (Review of Systems: - Constitutional symptoms: Improved color noted - Ears, Nose, Mouth, Throat: Sore throat present - Cardiovascular: No reported symptoms - Respiratory: Shortness of breath present - Gastrointestinal: Denies abdominal pain: "No" - Musculoskeletal: Ankle pain and weakness present - I) Vital Signs and I&O's Vital Signs: Vital Signs Temperature 98.1 F Temperature 97.9 F Pulse Rate [Right] 90 Pulse Rate [Right] 74 Respiratory Rate 20 Respiratory Rate 19 Respiratory Rate 19 Respiratory Rate 19 Blood Pressure [Right Arm] 144/66 Blood Pressure [Right Arm] 174/76 Blood Pressure [Right Arm] 183/74 O2 Sat by Pulse Oximetry 92 O2 Sat by Pulse Oximetry 95 Intake and Output: Intake & Output 08/09/24 08/10/24 08/11/24 08/12/24 11:59 11:59 11:59 11:59 Intake Total 777 / 777 3291 / 3291 1960 Balance 777 / 777 3291 / 3291 1960 Objective: - Vital Signs: - Blood pressure: 144/66 - Pulse: 90 - Oxygen saturation: 92% on 2L oxygen - Physical Examination: - Cardiovascular: Heart sounds normal - Respiratory: Breath sounds assessed - Musculoskeletal: Ankle examination performed - Laboratory Results: - Hemoglobin: 9.9 (improved from 8.9 yesterday) - MCV: 115.6 (elevated) Physical Exam Oriented: Person Eyes: Normal Ear: Normal Nose: Normal Throat: Normal Respiratory: Diminished Cardiovascular: Edema : Normal Auscultation: Bowel Sounds: Normal Tenderness: Normal Skin: Decreased Turgur and Bruising Musculoskeletal: Back:Thoracic, Back:Lumbar and Motor Deficit Psychiatric: Normal Mood Description: Depressed Affect: Depressed Speech Pattern: Clear and Appropriate Laboratory and Diagnostics 08/12/24 06:30 08/12/24 06:30 Labs: 08/08/24 15:05 Blood Blood Culture - Preliminary 08/08/24 15:00 Blood Blood Culture - Preliminary Laboratory WBC 5.2 X10^3/uL (3.6-10.0) 08/12/24 06:30 RBC 2.42 X10^6/uL (3.5-5.4) L 08/12/24 06:30 Hgb 9.9 g/dL (12.0-16.0) L 08/12/24 06:30 Hct 28.0 % (36.0-47.0) L 08/12/24 06:30 MCV 115.6 fL (80.0-100.0) H 08/12/24 06:30 MCH 40.8 pg (27.0-34.0) H 08/12/24 06:30 MCHC 35.3 g/dL (33.0-35.0) H 08/12/24 06:30 RDW 14.9 % (11.6-16.5) 08/12/24 06:30 Plt Count 216 X10^3/uL (150.0-450.0) 08/12/24 06:30 Plt Count Comment Adequate (ADEQUATE) 08/12/24 06:30 MPV 6.9 fL (7.4-11.0) L 08/12/24 06:30 Neut % (Auto) 80.4 % (42.0-75.0) H 08/12/24 06:30 Lymph % (Auto) 10.9 % (21.0-51.0) L 08/12/24 06:30 [place] % (Auto) 5.3 % (0.0-13.0) 08/12/24 06:30 Eos % (Auto) 2.5 % (0.9-2.9) 08/12/24 06:30 Baso % (Auto) 0.9 % (0.2-1.0) 08/12/24 06:30 Neut # (Auto) 4.2 x10^3/uL (2.2-4.8) 08/12/24 06:30 Lymph # (Auto) 0.6 X10^3/uL (1.3-2.9) L 08/12/24 06:30 [place] # (Auto) 0.3 x10^3/uL (0.3-0.8) 08/12/24 06:30 Eos # (Auto) 0.1 x10^3/uL (0.0-0.2) 08/12/24 06:30 Baso # (Auto) 0.0 X10^3/uL (0.0-0.1) 08/12/24 06:30 Absolute Nucleated RBC 0.0 /100WBC 08/12/24 06:30 Plt Morphology Comment Normal (NORMAL) 08/12/24 06:30 RBC Morphology Abnormal (NORMAL) A 08/12/24 06:30 Macrocytosis 3+ A 08/12/24 06:30 Sodium 139 mmol/L (136-145) 08/12/24 06:30 Corrected Sodium TNP 08/12/24 06:30 Potassium 4.3 mmol/L (3.5-5.1) 08/12/24 06:30 Chloride 106 mmol/L (98-107) 08/12/24 06:30 Carbon Dioxide 24.9 mmol/L (21-32) 08/12/24 06:30 BUN 14 mg/dL (7-18) 08/12/24 06:30 Creatinine 1.03 mg/dL (0.55-1.02) H 08/12/24 06:30 Est GFR (MDRD) Af Amer > 60 (>60) 08/12/24 06:30 Est GFR (MDRD) Non-Af 54 (>60) L 08/12/24 06:30 Glucose 79 mg/dL (65-99) 08/12/24 06:30 Lactic Acid 0.5 mmol/L (0.4-2.0) 08/08/24 15:00 Calcium 8.9 mg/dL (8.5-10.1) 08/12/24 06:30 Corrected Calcium 10.0 mg/dL (8.5-10.1) 08/12/24 06:30 Magnesium 1.9 mg/dL (2.0-2.9) L 08/12/24 06:30 Total Bilirubin 0.40 mg/dL (0.2-1.0) 08/12/24 06:30 AST 17 Units/L (15-37) 08/12/24 06:30 ALT 10 Units/L (12-78) L 08/12/24 06:30 Alkaline Phosphatase 118 Units/L (46-116) H 08/12/24 06:30 Total Protein 6.5 g/dL (6.4-8.2) 08/12/24 06:30 Albumin 2.6 g/dL (3.4-5.0) L 08/12/24 06:30 Globulin 3.9 g/dL (2.5-4.5) 08/12/24 06:30 Albumin/Globulin Ratio 0.7 Ratio (1.1-2.1) L 08/12/24 06:30 Specimen Type Clean catch urine 08/08/24 15:35 Urine Color Yellow (YELLOW) 08/08/24 15:35 Urine Appearance Slightly hazy (CLEAR) 08/08/24 15:35 Urine pH 6.0 (5.0 - 8.0) 08/08/24 15:35 Ur Specific [place] 1.010 (1.000-1.030) 08/08/24 15:35 Urine Protein 2+ (NEGATIVE) 08/08/24 15:35 Urine Glucose (UA) Negative (NEGATIVE) 08/08/24 15:35 Urine Ketones Negative (NEGATIVE) 08/08/24 15:35 Urine Blood 2+ (NEGATIVE) 08/08/24 15:35 Urine Nitrite Positive (NEGATIVE) 08/08/24 15:35 Urine Bilirubin Negative (NEGATIVE) 08/08/24 15:35 Urine Urobilinogen Normal (NORMAL) 08/08/24 15:35 Ur Leukocyte Esterase 3+ (NEGATIVE) 08/08/24 15:35 Urine RBC 5-10 /HPF (0-3) A 08/08/24 15:35 Urine WBC Tntc /HPF (0-5) A 08/08/24 15:35 Ur Squamous Epith Cells Few /HPF (NEGATIVE) 08/08/24 15:35 Urine Bacteria Trace /HPF (NEGATIVE) 08/08/24 15:35 Ur Culture Indicated? No/not indicated 08/08/24 15:35 S. pyogenes (TEM-PCR) Not detected (NOT DETECT) 08/11/24 11:23 Plan (1) AMS (altered mental status): Status: Acute Plan: DUE TO UTI UC AND BC ON ADMISSION VERIFY HOME MEDICATIONS, IV ATBX THERAPY IV HYDRATION WITH STRICT I&O BP CONTROL, SUPPLEMENTAL O2 AND RESP THERAPY CONSULT PT/OT (2) Acute UTI: Status: Acute (3) Generalized weakness: Status: Acute Plan: Tuesday, 12 August 2024: Plan/Recommendations I plan to send Alf Stein for inpatient physical therapy to improve strength and reduce fall risk. The recommended facility is [facility], located between [facility]. We will wait until the patient is well enough and strong enough to be discharged, potentially by Tuesday. I've ordered an anemia profile to check vitamin B12, folate, and iron levels. Based on the results, we may adjust the dosage of supplements. We will continue monitoring blood pressure and oxygen levels before making further adjustments to medications or oxygen therapy. (4) Polycythemia vera: Status: Acute (5) HTN (hypertension): Status: Acute Qualifiers: Hypertension type: primary hypertension Qualified Code(s): I10 - Essential (primary) hypertension Plan: 2. Hypertension - Recently started on metoprolol 25mg with option to increase to 50mg if needed - Blood pressure improved compared to previous day - Plan to monitor response before making further adjustments (6) Closed sacral fracture: Status: Acute (7) Acute hypokalemia: Status: Acute (8) Frequent falls: Status: Acute Plan: 4. Deconditioning/Weakness - Plan for inpatient physical therapy at [facility] - Transfer pending clinical improvement, tentatively by Tuesday - Goal to improve strength and reduce fall risk (9) Anxiety as acute reaction to exceptional stress: Status: Acute Plan: Plan/Recommendations Increase ondansetron (Zofran) from 4mg to 8mg for nausea. Start metoprolol ER 25mg once daily for blood pressure control. If blood pressure remains high, consider increasing to 50mg daily. Continue Losartan 50mg twice daily and amlodipine 5mg daily. Administer Ativan and Zofran together before morning medications and breakfast. Monitor hemoglobin levels due to recent drop. Consider discharge this afternoon if condition improves. No changes to current hydroxyurea regimen for blood disorder. (10) Anemia: Status: Acute Qualifiers: Anemia type: unspecified type Qualified Code(s): D64.9 - Anemia, unspecified Plan: 1. Anemia - Macrocytic anemia with elevated MCV - Plan to check anemia profile including vitamin B12 and folate levels - Currently taking oral B12 supplements
[2024-08-13 06:09] LABS: BASOPHILS % (AUTO) 0.9 % (0.2-1.0); EOSINOPHILS # (AUTO) 0.1 x10^3/uL (0.0-0.2); EOSINOPHILS % (AUTO) 3.3 % (0.9-2.9); HEMATOCRIT 26.4 % (36.0-47.0); HEMOGLOBIN 9.1 g/dL (12.0-16.0); LYMPHOCYTES # (AUTO) 0.5 X10^3/uL (1.3-2.9); LYMPHOCYTES % (AUTO) 13.2 % (21.0-51.0); MEAN CORPUSCULAR HEMOGLOBIN 40.1 pg (27.0-34.0); MEAN CORPUSCULAR HGB CONC 34.3 g/dL (33.0-35.0); MEAN CORPUSCULAR VOLUME 116.7 fL (80.0-100.0); MEAN PLATELET VOLUME 7.1 fL (7.4-11.0); MONOCYTES # (AUTO) 0.3 x10^3/uL (0.3-0.8); MONOCYTES % (AUTO) 7.2 % (0.0-13.0); NEUTROPHILS # (AUTO) 2.8 x10^3/uL (2.2-4.8); NEUTROPHILS % (AUTO) 75.4 % (42.0-75.0); PLATELET COUNT 195 X10^3/uL (150.0-450.0); RED BLOOD COUNT 2.26 X10^6/uL (3.5-5.4); WHITE BLOOD COUNT 3.7 X10^3/uL (3.6-10.0)
[2024-08-13 06:22] LABS: ALANINE AMINOTRANSFERASE 8 Units/L (12-78); ALBUMIN 2.3 g/dL (3.4-5.0); ALKALINE PHOSPHATASE 109 Units/L (46-116); ASPARTATE AMINO TRANSFERASE 21 Units/L (15-37); BLOOD UREA NITROGEN 13 mg/dL (7-18); CALCIUM 8.9 mg/dL (8.5-10.1); CARBON DIOXIDE 26.2 mmol/L (21-32); CHLORIDE 105 mmol/L (98-107); COR CA(FOR HYPOALB) 10.3 mg/dL (8.5-10.1); CREATININE 0.97 mg/dL (0.55-1.02); GLUCOSE 81 mg/dL (65-99); MAGNESIUM 2.2 mg/dL (2.0-2.9); POTASSIUM 4.2 mmol/L (3.5-5.1); SODIUM 139 mmol/L (136-145); TOTAL PROTEIN 6.1 g/dL (6.4-8.2); eGFR NON BLACK RACES 58 (>60)
[2024-08-13 06:30] LABS: PLATELET MORPHOLOGY COMMENT NORMAL (NORMAL)
[2024-08-14 06:24] LABS: BASOPHILS % (AUTO) 0.7 % (0.2-1.0); EOSINOPHILS # (AUTO) 0.1 x10^3/uL (0.0-0.2); EOSINOPHILS % (AUTO) 3.1 % (0.9-2.9); HEMATOCRIT 26.2 % (36.0-47.0); HEMOGLOBIN 9.3 g/dL (12.0-16.0); LYMPHOCYTES # (AUTO) 0.5 X10^3/uL (1.3-2.9); LYMPHOCYTES % (AUTO) 12.9 % (21.0-51.0); MEAN CORPUSCULAR HEMOGLOBIN 41.4 pg (27.0-34.0); MEAN CORPUSCULAR HGB CONC 35.5 g/dL (33.0-35.0); MEAN CORPUSCULAR VOLUME 116.8 fL (80.0-100.0); MEAN PLATELET VOLUME 7.6 fL (7.4-11.0); MONOCYTES # (AUTO) 0.3 x10^3/uL (0.3-0.8); MONOCYTES % (AUTO) 7.3 % (0.0-13.0); NEUTROPHILS # (AUTO) 2.7 x10^3/uL (2.2-4.8); PLATELET COUNT 200 X10^3/uL (150.0-450.0); RED BLOOD COUNT 2.24 X10^6/uL (3.5-5.4); WHITE BLOOD COUNT 3.6 X10^3/uL (3.6-10.0)
[2024-08-14 06:27] LABS: ALANINE AMINOTRANSFERASE 9 Units/L (12-78); ALBUMIN 2.4 g/dL (3.4-5.0); ALKALINE PHOSPHATASE 107 Units/L (46-116); ASPARTATE AMINO TRANSFERASE 23 Units/L (15-37); BLOOD UREA NITROGEN 12 mg/dL (7-18); CALCIUM 8.7 mg/dL (8.5-10.1); CARBON DIOXIDE 24.3 mmol/L (21-32); CHLORIDE 103 mmol/L (98-107); GLUCOSE 79 mg/dL (65-99); MAGNESIUM 2.2 mg/dL (2.0-2.9); POTASSIUM 3.8 mmol/L (3.5-5.1); SODIUM 137 mmol/L (136-145); TOTAL PROTEIN 6.1 g/dL (6.4-8.2); eGFR NON BLACK RACES > 60 (>60)
[2024-08-14 07:15] LABS: PLATELET MORPHOLOGY COMMENT NORMAL (NORMAL)
--- NOTE | 2024-08-14 07:26 | RAD ---
EXAM:CHEST, 1 VIEWHISTORY:SOB, COUGH;COMPARISON:08/10/2024FINDINGS:The cardiomediastinal silhouette is stable. Similar elevation of the right hemidiaphragm.Chronic appearing interstitial changes in the lungs. No acute airspace disease. No pneumothorax or effusion.No acute osseous abnormality.IMPRESSION:No acute cardiopulmonary disease.THIS IS AN ELECTRONICALLY VERIFIED FINAL NGAGLL1208/14/2024 7:23 AM - Electronically signed by Stephen Gilman MD
[2024-08-14 07:53] VITALS: BP 143/69; PULSE 93; RESP 20; TEMP 97.7; O2SAT 94
--- NOTE | 2024-08-14 14:23 | CT ---
EXAMINATION: CTA, CHEST HISTORY: SOB, unable to wean O2; . COMPARISON: CTA chest 07/24/2024 TECHNIQUE: Routine axial imaging of the chest was performed. CT angiography of the pulmonary arteries was perfor med with maximum intensity projection images and volume rendered images on a workstation.. The above CT scan was done with automated exposure control and the mA and kV was adjusted to obtain quality im ages according to patient size. FINDINGS: Lungs: There is respiratory motion. There is minimal atelectasis in the lung bases. There is clear ance of interstitial edema compared with the prior study. No new acute alveolar infiltrates, pulmona ry nodules or ground-glass opacities. Bronchial thickening Central Airways: No obstructing endobronchial lesions. Pleura: No pleural effusion or pneumothorax. There is clearance of pleural effusion since the prior study. Thoracic Aorta: Ectasia. Atherosclerotic calcification. No dissection. Main Pulmonary Trunk: Enlarged at 3.[address] angiography evidence for acute pulmonary embolus. Respiratory motion limits evaluation of smaller branches Lymph Nodes: No pathologic hilar, axillary or mediastinal adenopathy. Reactive lymph nodes are unch anged Heart/Pericardium: Normal heart size. No significant pericardial effusion. Coronary artery calcifi cation in the LAD and circumflex Liver: Hepatic cysts are unchanged. GB/Biliary: Distended gallbladder. No gallstones or dilated ducts Spleen: Normal size and density Pancreas: No acute findings as visualized Adrenal Glands: No mass Kidneys no hydronephrosis. Abdominal Aorta: Tapers and enhances normally. Atherosclerotic calcification Retroperitoneum: No pathologically enlarged lymph nodes Bowel/Peritoneal Cavity: No acute findings as visualized Osseous Structures: No acute findings or bony lesions. No change compared with prior Other: None IMPRESSION: No CT angiography evidence for acute pulmonary embolus or aortic dissection. Study degraded by respi ratory motion. Decrease in interstitial edema and bilateral pleural effusions compared with the prior study. No new acute infiltrates noted. Remainder of findings as described above The above CT scan was done with automated exposure control and the mA and kV was adjusted to obtain q uality images according to patient size THIS IS AN ELECTRONICALLY VERIFIED FINAL REPORT 08/14/2024 2:20 PM - Electronically signed by Polo Sauer MD
== END 2024-08-14 09:59 | disposition swing bed (61) ==
LOC: MED/SURG 12:07 → ER 12:07 → MED/SURG 21:05
PROVIDERS: ADMIT Internal Medicine; ATTEND Internal Medicine
DX: Y92.9 Unspecified place or not applicable; M25.472 Effusion, left ankle; N39.0 Urinary tract infection, site not specified; M54.59 Other low back pain; F41.1 Generalized anxiety disorder; Z16.23 Resistance to quinolones and fluoroquinolones; F43.0 Acute stress reaction; E83.42 Hypomagnesemia; I10 Essential (primary) hypertension; R06.02 Shortness of breath; R29.6 Repeated falls; R53.1 Weakness; D45 Polycythemia vera; S32.10XA Unspecified fracture of sacrum, initial encounter for closed fracture; I12.9 Hypertensive chronic kidney disease with stage 1 through stage 4 chronic kidney disease, or unspecified chronic kidney disease; R26.89 Other abnormalities of gait and mobility; B96.29 Other Escherichia coli [E. coli] as the cause of diseases classified elsewhere; E86.0 Dehydration; Z16.29 Resistance to other single specified antibiotic; D64.89 Other specified anemias; N18.31 Chronic kidney disease, stage 3a; E78.5 Hyperlipidemia, unspecified; R41.82 Altered mental status, unspecified; E87.6 Hypokalemia; W18.39XA Other fall on same level, initial encounter; J96.90 Respiratory failure, unspecified, unspecified whether with hypoxia or hypercapnia; M25.552 Pain in left hip

== ENCOUNTER 2024-08-14 10:00 | Inpatient (IN) ==
[2024-08-14] MEDS ORDERED: COLACE CAP 100 MG PO PRN (11:36)
[2024-08-14] MEDS ORDERED: ANUCORT-HC SUPP PR PRN (11:36)
[2024-08-14] MEDS: ULTRAM PO SCH (13:13)
--- NOTE | 2024-08-14 14:56 | PT/OTEVAL ---
PT/OT OBJECTIVES - HISTORY Prescription: OT Consult Diagnosis: Deconditioning s/p UTI, fall Precautions: FAll risk LE swelling, pain, acute sacral fx PMH: Anxiety, Depression, Dyslipidemia and Hypertension Prior Level of Function: Independent Other: Per patient report, Pt lives with her in 1 story home with no steps to enter. Pt was recently discharged home from hospital on O2 and with home health services. Reports that she was doing okay, but then had at least 2 falls and started to decline again. Pt's with hx of strokes and unable to physically assist pt and is also currently hospitalized. Pt is (I) with ADLs and IADLs. DME includes a FWW, Rollator, SPC, Shower Chair, BSC, WC. [ End ] History of Present Illness: Pt is a 84 year old female who came to [facility] after recent fall at home via EMS. Pt was dx with a UTI. Pt c/o diffuse weakness and intractable back pain. Pt has had several falls and xray confirmed a acute sacral fx. Pt was unsafe to return home at this time as she does not have anyone who can assist her and would benefit from further rehab. - COGNITION Mental Status: Alert, Oriented, Name, Date, Place, Purpose Communication Status: Verbal Ability to Follow Directions: 2 Step Memory Loss: None Affect: Calm - PAIN Left Foot Pain Scale: Severe Comments: Pt reports she "twisted" her ankle [place] [facility] negative L Hip/Lower Extremity Pain Scale: No Pain Comments: Reports since fall on L side Left Buttock Region Pain Scale: Mild Comments: It's getting better No signs of pain Pain Scale: No Pain Comments: Only with complaints of nausea - BED MOBILITY Rolling: Moderate Scooting: Maximum - TRANSFERS Supine to Sit: Moderate Sit to Stand: Maximum Sit or Stand Pivot: Maximum Toileting: Maximum Safety (requires cues for:): Hand Placement Precaution - ADL'S Feeding: Supervision Grooming: Supervision Upper Body ADL: Minimum Lower Body ADL: Maximum Toileting: Maximum Bathing: Maximum Hygeine: Maximum - BALANCE Static Sitting: Fair Standing: Poor Dynamic Sitting: Fair Standing: Poor - NEUROMOTOR/SENSATION Jose. Lower Ext Sensation: WFL Coordination: WFL Jose. Upper Ext Sensation: WFL Coordination: WFL - HAND DOMINANCE Extremity Function: Hand Dominance: Right - ROM Bilateral UE ROM: WFL - STRENGTH Bilateral LE Strength Number: 3 Other comment: 3+/5 Bilateral UE Strength Number: 3 Other comment: 3+/5 - TREATMENT Date: 08/14/24 Time: 13:00 Treatment Type: Evaluation Treatment Provided: Therapeutic Excersises - TOTAL TREATMENT TIME Total Time: 90 - POST ASSESSMENT Post Assessment Comment: Pt was seen for skilled OT to assess CLOF. Pt agreeable to participate with skilled OT and able to provide PLOF and hx. Pt does not want her children involved in her care at this time. Pt is max A for ADLs including LB dressing and toileting. Pt had just gone to get a ct scan and was tired and did not want to get back up, however was agreeable to complete BUE exe. Pt used a level 2 resistance band and completed 15 reps x2 in all planes. Therapeutic RBs for fatigue. Pt demonstrate deficits with ADLs and ADL functional mobility. Pt would benefit from skilled OT services to address ADL deficits to facilitate highest level of ADL function needed for safe d/c planning. - EXIT DISPOSITION Exit Position: BED Call light in reach: Yes PT/OT ASSESSMENT - PT Problem List: Other - OT Problem List: Decreased Mobility ADL's, Decreased Safety Aware, Decreased Dressing, Decreased Bathing, Decreased Grooming, Decreased UE Strength - OT GOALS Prison Goals Days: 20 Mobility for ADL's: Pt to functioanlly transfer with LRAD and set up A Safety Awareness: Pt to improve safety to G Dressing: Pt to improve LB dressing to set up A Bathing: Pt to improve overall bathing to set up A Grooming: Pt to improve grooming to (I) Upper Ext. Strength/Use: Pt to improve MMT in BUE by 1 grade Short Term Goals Days: 10 Mobility for ADL's: Pt to functioanlly transfer with LRAD and supv A Safety Awareness: Pt to improve safety to F+ Dressing: Pt to improve LB dressing to supv A Bathing: Pt to improve overall bathing to supv A Other: Pt to improve FAT to G - PATIENT GOALS Patient/Family Goals: I want to feel better Rehabilitation Potential: G to meet stated goals Justification for Potential: To faciltiate highest level of ADL function needed for safe d/c planning Weakness and Barriers: Pain - PLAN Suggested Treatment Plan: Therapeutic Activity, Self Care Training, Neuro Re- education, Therapeutic Ex with HEP, Patient Education - FREQUENCY AND DURATION OT: 5x a week x 20 days Expected Continuation of Care at Discharge: Determined on Progress
[2024-08-14] MEDS: OMNIPAQUE 350 mg/mL 100 mL BTL 100 ML ONE (15:23)
--- NOTE | 2024-08-14 19:27 | PT/OTEVAL ---
PT/OT OBJECTIVES - HISTORY Prescription: PT Consult Diagnosis: Deconditioning s/p UTI and Falls Precautions: Fall Risk, Saccrococcygeal Fx, 3LO2 via NC PMH: Polycythemia, Dyslipidemia, HTN, GERD, Falls, Hysterectomy Other: Per patient report- Pt resides with in single story home with no steps to enter. PLOF: Pt was recently discharged home from hospital on O2 and with home health services. Reports that she was doing okay, but then had at least 2 falls and started to decline again. Pt's with hx of strokes and unable to physically assist pt and is also currently hospitalized. DME: FWW, Rollator, SPC, Shower Chair, BSC, WC History of Present Illness: Mrs. Stein is an 84 year old female who was at [facility] on 08/07/2024- diagnosed with UTI- prescribed ABT and discharged home. Returned 08/08/2024 with daughter due to continued confusion, weakness and urinary symptoms. 2-3 falls at home since last discharge from hospital and complaints of L hip/buttocks pain- noted to have sacrococcyxgeal fracture. Due to recent hospitalizations and falls, pt unable to safely return home at this time and is declining placement at [facility] but agreeable to swing bed program to facilitate highest level of function prior to discharge. - COGNITION Mental Status: Alert, Oriented, Name, Date, Place, Purpose Communication Status: Verbal Ability to Follow Directions: 2 Step - PAIN No signs of pain Comments: Only with complaints of nausea Left Foot Pain Scale: Mild Comments: at end ROM - "sprain" noted several days ago. Left Buttock Region Pain Scale: Mild Comments: "It's getting better" - BED MOBILITY Rolling: Minimal Scooting: Moderate - TRANSFERS Supine to Sit: Moderate Sit to Stand: Moderate Sit or Stand Pivot: Moderate Sit or Stand Pivot Comment: Decreased WB noted through LLE Safety (requires cues for:): Hand Placement Precaution - BALANCE Static Sitting: Good Standing: Poor Dynamic Sitting: Fair Standing: Poor - NEUROMOTOR/SENSATION Jose. Lower Ext Sensation: WFL Coordination: WFL Proprioception: WFL - HAND DOMINANCE Extremity Function: Hand Dominance: Right - ROM Bilateral LE ROM: WFL Muscle Tone: WFL - STRENGTH Left LE Strength Number: 3 Other comment: 3-/5 Right LE Strength Number: 3 Other comment: 3+/5 - GAIT Comments: Unable this date, reports of L ankle pain. - TREATMENT Date: 08/14/24 Time: 12:15 Treatment Type: Evaluation Treatment Provided: Therapeutic Activities, Therapeutic Excersises - TOTAL TREATMENT TIME Total Time: 105 - POST ASSESSMENT Post Assessment Comment: Mrs. Stein was found supine in bed in room and agreeable to participation in PT services. Pt with questions re: swing bed program with education provided. Pt on 3LO2 via nasal cannula throughout. Pt was noted to be very emotional throughout due to some family issues going on- requiring increased time. Pt required min to mod assist for bed mobility tasks and mod assist for functional transfers. Decreased WB through LLE (due to ankle pain) but pt reports that it is improving. While supine in bed, pt agreeable to BLE exercises including: B SLR, B Hip Abduction with LE Extended, B Heel Slides, R Ankle PF/DF and Quad/Glut Sets (2 x 10 of each) - AAROM on LLE as needed due t o discomfort. Pt does require frequent therapeutic rest breaks throughout due to fatigue. Pt would benefit from continued participation in PT Services to address remaining deficits and facilitate highest level of function and safe discharge planning. - EXIT DISPOSITION Exit Position: BED Call light in reach: Yes Comments: All needs met. PT/OT ASSESSMENT - PT Problem List: Decreased Bed Mobility, Decreased Transfers, Decreased Gait, Decreased Balance, Decreased Safety, Decreased LE Strength - PT GOALS Short Term Goals Days: 10 Mobility: Pt will perform bed mobility tasks with touch assist Transfers: Pt will perform functional transfers with touch assist Gait: Pt will ambulate 100ft with FWW with touch assist Balance: Pt will increase static standing balance to good x 10 minutes It Desktop Support Technician Goals Days: 20 Mobility: Pt will perform bed mobility tasks with supervision Transfers: Pt will perform functional transfers with supervision Gait: Pt will ambulate 250ft with FWW with supervision Balance: Pt will increase dynamic standing balance to fair+ ROM/Strength: Pt will increase BLE strength to 5/5 - OT GOALS It Desktop Support Technician Goals Days: 20 Mobility for ADL's: Pt to functioanlly transfer with LRAD and set up A Safety Awareness: Pt to improve safety to G Dressing: Pt to improve LB dressing to set up A Bathing: Pt to improve overall bathing to set up A Grooming: Pt to improve grooming to (I) Upper Ext. Strength/Use: Pt to improve MMT in BUE by 1 grade Short Term Goals Days: 10 Mobility for ADL's: Pt to functioanlly transfer with LRAD and supv A Safety Awareness: Pt to improve safety to F+ Dressing: Pt to improve LB dressing to supv A Bathing: Pt to improve overall bathing to supv A Other: Pt to improve FAT to G - PATIENT GOALS Patient/Family Goals: "I want to get my strength back so I can go home" Goals Discussed with Patient/Family: Yes Rehabilitation Potential: Good to meet stated goals Justification for Potential: Facilitate highest level of function and safe discharge planning Weakness and Barriers: None - PLAN Suggested Treatment Plan: Bed Mobility Training, Therapeutic Activity, Gait Training, Neuro Re-education, Therapeutic Ex with HEP, Patient Education, Family Education, Other Other comment: Manual Therapy - FREQUENCY AND DURATION PT: 5-6x per week x 20 days Expected Continuation of Care at Discharge: Home Health Comments: Pt states that her and are looking into a caregiver for home .
[2024-08-14] MEDS: ELAVIL PO SCH (20:17)
[2024-08-14] MEDS: ATIVAN TAB 0.5 MG PO PRN (20:17)
[2024-08-14] MEDS: HYDREA PO SCH (20:17)
[2024-08-14] MEDS: RESTORIL CAP 15 MG PO PRN (20:18)
[2024-08-14] MEDS: ZOCOR TAB 40 MG PO SCH (20:18)
[2024-08-14] MEDS: COZAAR PO SCH (20:18)
[2024-08-14] MEDS: COLACE CAP 100 MG PO SCH (20:18)
[2024-08-14] MEDS: ZOFRAN INJ 4 MG VIAL IVP PRN (21:03)
[2024-08-14] MEDS: NS 1,000 ML IV 1,000 ML IV SCH (21:51)
[2024-08-15 05:55] LABS: BASOPHILS % (AUTO) 0.8 % (0.2-1.0); EOSINOPHILS # (AUTO) 0.1 x10^3/uL (0.0-0.2); EOSINOPHILS % (AUTO) 3.1 % (0.9-2.9); HEMATOCRIT 26.5 % (36.0-47.0); HEMOGLOBIN 9.4 g/dL (12.0-16.0); LYMPHOCYTES # (AUTO) 0.6 X10^3/uL (1.3-2.9); LYMPHOCYTES % (AUTO) 16.7 % (21.0-51.0); MEAN CORPUSCULAR HEMOGLOBIN 41.2 pg (27.0-34.0); MEAN CORPUSCULAR HGB CONC 35.5 g/dL (33.0-35.0); MEAN CORPUSCULAR VOLUME 116.1 fL (80.0-100.0); MEAN PLATELET VOLUME 7.4 fL (7.4-11.0); MONOCYTES # (AUTO) 0.3 x10^3/uL (0.3-0.8); MONOCYTES % (AUTO) 8.7 % (0.0-13.0); NEUTROPHILS # (AUTO) 2.5 x10^3/uL (2.2-4.8); NEUTROPHILS % (AUTO) 70.7 % (42.0-75.0); PLATELET COUNT 182 X10^3/uL (150.0-450.0); RED BLOOD COUNT 2.29 X10^6/uL (3.5-5.4); RED CELL DISTRIBUTION WIDTH 16.7 % (11.6-16.5); WHITE BLOOD COUNT 3.5 X10^3/uL (3.6-10.0)
[2024-08-15 05:57] LABS: ALANINE AMINOTRANSFERASE 10 Units/L (12-78); ALBUMIN 2.4 g/dL (3.4-5.0); ALKALINE PHOSPHATASE 110 Units/L (46-116); ASPARTATE AMINO TRANSFERASE 21 Units/L (15-37); BLOOD UREA NITROGEN 13 mg/dL (7-18); CARBON DIOXIDE 24.7 mmol/L (21-32); CHLORIDE 103 mmol/L (98-107); COR CA(FOR HYPOALB) 10.3 mg/dL (8.5-10.1); GLUCOSE 79 mg/dL (65-99); POTASSIUM 3.7 mmol/L (3.5-5.1); SODIUM 138 mmol/L (136-145); TOTAL PROTEIN 6.2 g/dL (6.4-8.2); eGFR NON BLACK RACES 56 (>60)
[2024-08-15 06:25] LABS: PLATELET MORPHOLOGY COMMENT NORMAL (NORMAL)
[2024-08-15] MEDS ORDERED: CONSULT PHARMACY - POTASSIUM & MAGNESIUM XX SCH (07:00)
[2024-08-15] MEDS: LOVENOX INJ 30 MG SYR SC SCH (09:07)
[2024-08-15] MEDS: VITAMIN D3 25 mcg (1,000 UNITS) PO SCH (09:08)
[2024-08-15] MEDS: ROCEPHIN VIAL 1 GRAM 1 G in NS 100 ML IV 100 ML IV SCH (09:08)
[2024-08-15] MEDS: ASPIRIN PO SCH (09:08)
[2024-08-15] MEDS: NORVASC TAB 10 MG PO SCH (09:09)
[2024-08-15] MEDS: VITAMIN B-12 PO SCH (09:09)
[2024-08-15] MEDS: K-DUR TAB 20 MEQ PO SCH (09:09)
[2024-08-15] MEDS: PROTONIX TAB 40 MG PO SCH (09:09)
[2024-08-15] MEDS: TOPROL XL PO SCH (09:10)
[2024-08-15] MEDS: LASIX PO SCH (09:10)
[2024-08-15] MEDS: LOPID PO SCH (09:16)
[2024-08-15 12:00] VITALS: BMI 21.9
--- NOTE | 2024-08-15 17:15 | PCM.PROG ---
Progress Note Progress Note for Day of Date of Exam: 08/15/24 Subjective Subjective: PT IS 84 WF, SWING BED THERAPY DUE TO EXTENDED ILLNESS CAUSING WEAKNESS WITH MULTPLE RECENT FALLS. PT HAS A SCARAL FRACTURE REQUIRING PAIN CONTROL. PT IS ON ROCEPHIN IV FOR ECOLI + UTI, WITH ONLY 3 DOSES PENDING. PT IS WORKING WITH PT. HER HOME MEDICATIONS FOR HTN AND POLYCYTHEMIA HAVE BEEN CONTINUED. PLAN TO OBTAIN ROUTINE LABS PER SWING BED. Past Medical Family Social History Allergies: Allergies Sulfa (Sulfonamide Antibiotics) [SULFA] Allergy (Verified 08/08/24 12:34) RASH Vital Signs and I&O's Vital Signs: Vital Signs Respiratory Rate 16 Respiratory Rate 18 Intake and Output: Intake & Output 08/13/24 08/14/24 08/15/24 08/16/24 11:59 11:59 11:59 11:59 Intake Total 1695 / 1695 200 / 200 Output Total 3 / 3 Balance 1692 / 1692 200 / 200 Physical Exam Oriented: Normal Eyes: Normal Ear: Normal Nose: Normal Throat: Normal Respiratory: Diminished Cardiovascular: Normal : Normal Auscultation: Bowel Sounds: Normal Palpation: Normal Tenderness: Normal Skin: Decreased Turgur and Bruising Musculoskeletal: Ankle (LEFT), Back:Lumbar and Motor Deficit Psychiatric: Depression Affect: Depressed Speech Pattern: Clear and Appropriate Laboratory and Diagnostics 08/15/24 05:14 08/15/24 05:14 Labs: Laboratory WBC 3.5 X10^3/uL (3.6-10.0) L 08/15/24 05:14 RBC 2.29 X10^6/uL (3.5-5.4) L 08/15/24 05:14 Hgb 9.4 g/dL (12.0-16.0) L 08/15/24 05:14 Hct 26.5 % (36.0-47.0) L 08/15/24 05:14 MCV 116.1 fL (80.0-100.0) H 08/15/24 05:14 MCH 41.2 pg (27.0-34.0) H 08/15/24 05:14 MCHC 35.5 g/dL (33.0-35.0) H 08/15/24 05:14 RDW 16.7 % (11.6-16.5) H 08/15/24 05:14 Plt Count 182 X10^3/uL (150.0-450.0) 08/15/24 05:14 Plt Count Comment Adequate (ADEQUATE) 08/15/24 05:14 MPV 7.4 fL (7.4-11.0) 08/15/24 05:14 Neut % (Auto) 70.7 % (42.0-75.0) 08/15/24 05:14 Lymph % (Auto) 16.7 % (21.0-51.0) L 08/15/24 05:14 [place] % (Auto) 8.7 % (0.0-13.0) 08/15/24 05:14 Eos % (Auto) 3.1 % (0.9-2.9) H 08/15/24 05:14 Baso % (Auto) 0.8 % (0.2-1.0) 08/15/24 05:14 Neut # (Auto) 2.5 x10^3/uL (2.2-4.8) 08/15/24 05:14 Lymph # (Auto) 0.6 X10^3/uL (1.3-2.9) L 08/15/24 05:14 [place] # (Auto) 0.3 x10^3/uL (0.3-0.8) 08/15/24 05:14 Eos # (Auto) 0.1 x10^3/uL (0.0-0.2) 08/15/24 05:14 Baso # (Auto) 0.0 X10^3/uL (0.0-0.1) 08/15/24 05:14 Absolute Nucleated RBC 0.2 /100WBC 08/15/24 05:14 Plt Morphology Comment Normal (NORMAL) 08/15/24 05:14 RBC Morphology Abnormal (NORMAL) A 08/15/24 05:14 Macrocytosis 3+ A 08/15/24 05:14 Sodium 138 mmol/L (136-145) 08/15/24 05:14 Corrected Sodium TNP 08/15/24 05:14 Potassium 3.7 mmol/L (3.5-5.1) 08/15/24 05:14 Chloride 103 mmol/L (98-107) 08/15/24 05:14 Carbon Dioxide 24.7 mmol/L (21-32) 08/15/24 05:14 BUN 13 mg/dL (7-18) 08/15/24 05:14 Creatinine 1.00 mg/dL (0.55-1.02) 08/15/24 05:14 Est GFR (MDRD) Af Amer > 60 (>60) 08/15/24 05:14 Est GFR (MDRD) Non-Af 56 (>60) L 08/15/24 05:14 Glucose 79 mg/dL (65-99) 08/15/24 05:14 Calcium 9.0 mg/dL (8.5-10.1) 08/15/24 05:14 Corrected Calcium 10.3 mg/dL (8.5-10.1) H 08/15/24 05:14 Total Bilirubin 0.40 mg/dL (0.2-1.0) 08/15/24 05:14 AST 21 Units/L (15-37) 08/15/24 05:14 ALT 10 Units/L (12-78) L 08/15/24 05:14 Alkaline Phosphatase 110 Units/L (46-116) 08/15/24 05:14 Total Protein 6.2 g/dL (6.4-8.2) L 08/15/24 05:14 Albumin 2.4 g/dL (3.4-5.0) L 08/15/24 05:14 Globulin 3.8 g/dL (2.5-4.5) 08/15/24 05:14 Albumin/Globulin Ratio 0.6 Ratio (1.1-2.1) L 08/15/24 05:14 Plan (1) Generalized weakness: Status: Acute Plan: PT FOR SWING BED THERAPY (2) Closed sacral fracture: Status: Acute
[2024-08-17] MEDS: CONSULT PHARMACY - POTASSIUM & MAGNESIUM XX SCH (14:31)
[2024-08-17] MEDS: ZOFRAN ODT PO PRN (14:38)
[2024-08-18 05:41] LABS: PLATELET COUNT 188 X10^3/uL (150.0-450.0)
[2024-08-18 05:46] LABS: ALANINE AMINOTRANSFERASE 8 Units/L (12-78); ALBUMIN 2.3 g/dL (3.4-5.0); ALKALINE PHOSPHATASE 92 Units/L (46-116); ASPARTATE AMINO TRANSFERASE 15 Units/L (15-37); BLOOD UREA NITROGEN 10 mg/dL (7-18); CALCIUM 8.8 mg/dL (8.5-10.1); CHLORIDE 103 mmol/L (98-107); COR CA(FOR HYPOALB) 10.2 mg/dL (8.5-10.1); CREATININE 0.87 mg/dL (0.55-1.02); GLUCOSE 90 mg/dL (65-99); MAGNESIUM 1.8 mg/dL (2.0-2.9); POTASSIUM 3.7 mmol/L (3.5-5.1); SODIUM 138 mmol/L (136-145); TOTAL PROTEIN 5.9 g/dL (6.4-8.2); eGFR NON BLACK RACES > 60 (>60)
[2024-08-18 05:47] LABS: BASOPHILS % (AUTO) 0.9 % (0.2-1.0); EOSINOPHILS # (AUTO) 0.1 x10^3/uL (0.0-0.2); EOSINOPHILS % (AUTO) 3.1 % (0.9-2.9); HEMATOCRIT 23.3 % (36.0-47.0); HEMOGLOBIN 8.4 g/dL (12.0-16.0); LYMPHOCYTES # (AUTO) 0.5 X10^3/uL (1.3-2.9); LYMPHOCYTES % (AUTO) 10.3 % (21.0-51.0); MEAN CORPUSCULAR HEMOGLOBIN 41.7 pg (27.0-34.0); MEAN CORPUSCULAR VOLUME 115.9 fL (80.0-100.0); MEAN PLATELET VOLUME 6.9 fL (7.4-11.0); MONOCYTES # (AUTO) 0.3 x10^3/uL (0.3-0.8); MONOCYTES % (AUTO) 6.8 % (0.0-13.0); NEUTROPHILS # (AUTO) 3.7 x10^3/uL (2.2-4.8); NEUTROPHILS % (AUTO) 78.9 % (42.0-75.0); RED BLOOD COUNT 2.01 X10^6/uL (3.5-5.4); RED CELL DISTRIBUTION WIDTH 16.8 % (11.6-16.5); WHITE BLOOD COUNT 4.7 X10^3/uL (3.6-10.0)
[2024-08-18 06:33] LABS: PLATELET MORPHOLOGY COMMENT NORMAL (NORMAL)
[2024-08-18] MEDS: K-DUR TAB 20 MEQ PO SCH (08:09)
[2024-08-19 05:38] LABS: MAGNESIUM 1.8 mg/dL (2.0-2.9); POTASSIUM 4.1 mmol/L (3.5-5.1)
[2024-08-19] MEDS ORDERED: CONSULT PHARMACY - POTASSIUM & MAGNESIUM XX SCH (06:00)
[2024-08-19] MEDS: CONSULT PHARMACY - POTASSIUM & MAGNESIUM XX SCH (06:59)
[2024-08-19] MEDS: MAG-OX TAB PO SCH (08:15)
[2024-08-19] MEDS: K-DUR TAB 20 MEQ PO SCH (09:39)
[2024-08-20 05:50] LABS: BASOPHILS # (AUTO) 0.1 X10^3/uL (0.0-0.1); BASOPHILS % (AUTO) 1.3 % (0.2-1.0); EOSINOPHILS # (AUTO) 0.1 x10^3/uL (0.0-0.2); EOSINOPHILS % (AUTO) 3.4 % (0.9-2.9); HEMATOCRIT 22.7 % (36.0-47.0); LYMPHOCYTES # (AUTO) 0.7 X10^3/uL (1.3-2.9); LYMPHOCYTES % (AUTO) 16.8 % (21.0-51.0); MEAN CORPUSCULAR HEMOGLOBIN 41.2 pg (27.0-34.0); MEAN CORPUSCULAR HGB CONC 35.3 g/dL (33.0-35.0); MEAN CORPUSCULAR VOLUME 116.5 fL (80.0-100.0); MEAN PLATELET VOLUME 7.4 fL (7.4-11.0); MONOCYTES # (AUTO) 0.3 x10^3/uL (0.3-0.8); MONOCYTES % (AUTO) 8.1 % (0.0-13.0); NEUTROPHILS # (AUTO) 2.8 x10^3/uL (2.2-4.8); NEUTROPHILS % (AUTO) 70.4 % (42.0-75.0); PLATELET COUNT 234 X10^3/uL (150.0-450.0); RED BLOOD COUNT 1.95 X10^6/uL (3.5-5.4); RED CELL DISTRIBUTION WIDTH 17.2 % (11.6-16.5)
[2024-08-20 05:55] LABS: ALANINE AMINOTRANSFERASE 11 Units/L (12-78); ALBUMIN 2.4 g/dL (3.4-5.0); ALKALINE PHOSPHATASE 100 Units/L (46-116); ASPARTATE AMINO TRANSFERASE 18 Units/L (15-37); BLOOD UREA NITROGEN 11 mg/dL (7-18); CARBON DIOXIDE 27.5 mmol/L (21-32); CHLORIDE 102 mmol/L (98-107); COR CA(FOR HYPOALB) 10.3 mg/dL (8.5-10.1); CREATININE 0.97 mg/dL (0.55-1.02); GLUCOSE 81 mg/dL (65-99); MAGNESIUM 2.1 mg/dL (2.0-2.9); POTASSIUM 3.8 mmol/L (3.5-5.1); SODIUM 136 mmol/L (136-145); eGFR NON BLACK RACES 58 (>60)
[2024-08-20 06:35] LABS: PLATELET MORPHOLOGY COMMENT NORMAL (NORMAL)
[2024-08-20 06:36] LABS: ANISOCYTOSIS SLIGHT
[2024-08-20] MEDS: TOPROL XL PO STA (08:35)
--- NOTE | 2024-08-20 08:41 | RAD ---
EXAM:ANKLE, LEFT x-ray three viewsHISTORY:edema and pain-COMPARISON:X-ray 08/10/2024FINDINGS:There is diffuse soft tissue swelling. Bones appear osteopenic. No widening of the ankle mortise. Diffuse vascular calcifications are seen in the soft tissues. Soft tissue swelling in the foot appears greater than in the lower leg. There is a small calcaneal plantar spur.IMPRESSION:Diffuse soft tissue swelling is present, greatest in the dorsum of the foot. The swelling in the foot is greater than on prior study. Suggest further evaluation with foot x-ray.No acute bony abnormality is seen.THIS IS AN ELECTRONICALLY VERIFIED FINAL [id number]/20/2024 8:37 AM - Electronically signed by Polo Frances MD
--- NOTE | 2024-08-20 17:38 | PCM.PROG ---
Progress Note Progress Note for Day of Date of Exam: 08/20/24 Subjective Subjective: PT IS 84 WF, SWING BED THERAPY DUE TO EXTENDED ILLNESS CAUSING WEAKNESS WITH MULTPLE RECENT FALLS. PT HAS A SCARAL FRACTURE REQUIRING PAIN CONTROL. PT SPRAINED HER LEFT ANKLE ONE WEEK AGO AND HAD A XRAY NEGATIVE FOR FRACTURE AT THAT TIME. PT HAS HAD AN RANDALL WRAP AND REPORT SHE CAN PUT PRESSURE ON LEFT TOES BUT NOT HEEL, BUT SLOW IMPROVEMENT.PT IS WORKING WITH PT. HER HOME MEDICATIONS FOR HTN AND POLYCYTHEMIA HAVE BEEN CONTINUED. PLAN TO OBTAIN ROUTINE LABS PER SWING BED. Past Medical Family Social History Allergies: Allergies Sulfa (Sulfonamide Antibiotics) [SULFA] Allergy (Verified 08/08/24 12:34) RASH Vital Signs and I&O's Vital Signs: Vital Signs Respiratory Rate 22 Respiratory Rate 20 Intake and Output: Intake & Output 08/18/24 08/19/24 08/20/24 08/21/24 11:59 11:59 11:59 11:59 Intake Total 1462 / 1462 1532 / 1532 2112 / 2112 0 / 0 Balance 1462 / 1462 1532 / 1532 2111 / 2 0 / 0 Physical Exam Oriented: Normal Eyes: Normal Ear: Normal Nose: Normal Throat: Normal Respiratory: Diminished Cardiovascular: Normal : Normal Auscultation: Bowel Sounds: Normal Tenderness: Normal Skin: Decreased Turgur and Bruising Musculoskeletal: Ankle (LEFT), Back:Lumbar and Motor Deficit Psychiatric: Depression Affect: Depressed Speech Pattern: Clear and Appropriate Laboratory and Diagnostics 08/20/24 05:10 08/20/24 05:10 Labs: Laboratory WBC 4.0 X10^3/uL (3.6-10.0) 08/20/24 05:10 RBC 1.95 X10^6/uL (3.5-5.4) L 08/20/24 05:10 Hgb 8.0 g/dL (12.0-16.0) L 08/20/24 05:10 Hct 22.7 % (36.0-47.0) L 08/20/24 05:10 MCV 116.5 fL (80.0-100.0) H 08/20/24 05:10 MCH 41.2 pg (27.0-34.0) H 08/20/24 05:10 MCHC 35.3 g/dL (33.0-35.0) H 08/20/24 05:10 RDW 17.2 % (11.6-16.5) H 08/20/24 05:10 Plt Count 234 X10^3/uL (150.0-450.0) 08/20/24 05:10 Plt Count Comment Adequate (ADEQUATE) 08/20/24 05:10 MPV 7.4 fL (7.4-11.0) 08/20/24 05:10 Neut % (Auto) 70.4 % (42.0-75.0) 08/20/24 05:10 Lymph % (Auto) 16.8 % (21.0-51.0) L 08/20/24 05:10 [place] % (Auto) 8.1 % (0.0-13.0) 08/20/24 05:10 Eos % (Auto) 3.4 % (0.9-2.9) H 08/20/24 05:10 Baso % (Auto) 1.3 % (0.2-1.0) H 08/20/24 05:10 Neut # (Auto) 2.8 x10^3/uL (2.2-4.8) 08/20/24 05:10 Lymph # (Auto) 0.7 X10^3/uL (1.3-2.9) L 08/20/24 05:10 [place] # (Auto) 0.3 x10^3/uL (0.3-0.8) 08/20/24 05:10 Eos # (Auto) 0.1 x10^3/uL (0.0-0.2) 08/20/24 05:10 Baso # (Auto) 0.1 X10^3/uL (0.0-0.1) 08/20/24 05:10 Absolute Nucleated RBC 0.1 /100WBC 08/20/24 05:10 Plt Morphology Comment Normal (NORMAL) 08/20/24 05:10 RBC Morphology Abnormal (NORMAL) A 08/20/24 05:10 Anisocytosis Slight A 08/20/24 05:10 Macrocytosis 3+ A 08/20/24 05:10 Sodium 136 mmol/L (136-145) 08/20/24 05:10 Corrected Sodium TNP 08/20/24 05:10 Potassium 3.8 mmol/L (3.5-5.1) 08/20/24 05:10 Chloride 102 mmol/L (98-107) 08/20/24 05:10 Carbon Dioxide 27.5 mmol/L (21-32) 08/20/24 05:10 BUN 11 mg/dL (7-18) 08/20/24 05:10 Creatinine 0.97 mg/dL (0.55-1.02) 08/20/24 05:10 Est GFR (MDRD) Af Amer > 60 (>60) 08/20/24 05:10 Est GFR (MDRD) Non-Af 58 (>60) L 08/20/24 05:10 Glucose 81 mg/dL (65-99) 08/20/24 05:10 Calcium 9.0 mg/dL (8.5-10.1) 08/20/24 05:10 Corrected Calcium 10.3 mg/dL (8.5-10.1) H 08/20/24 05:10 Magnesium 2.1 mg/dL (2.0-2.9) 08/20/24 05:10 Total Bilirubin 0.50 mg/dL (0.2-1.0) 08/20/24 05:10 AST 18 Units/L (15-37) 08/20/24 05:10 ALT 11 Units/L (12-78) L 08/20/24 05:10 Alkaline Phosphatase 100 Units/L (46-116) 08/20/24 05:10 Total Protein 6.0 g/dL (6.4-8.2) L 08/20/24 05:10 Albumin 2.4 g/dL (3.4-5.0) L 08/20/24 05:10 Globulin 3.6 g/dL (2.5-4.5) 08/20/24 05:10 Albumin/Globulin Ratio 0.7 Ratio (1.1-2.1) L 08/20/24 05:10 Plan (1) Generalized weakness: Status: Acute Plan: PT FOR SWING BED THERAPY (2) Closed sacral fracture: Status: Acute
[2024-08-21 05:40] LABS: BASOPHILS % (AUTO) 0.9 % (0.2-1.0); EOSINOPHILS # (AUTO) 0.1 x10^3/uL (0.0-0.2); HEMATOCRIT 20.7 % (36.0-47.0); HEMOGLOBIN 7.5 g/dL (12.0-16.0); LYMPHOCYTES # (AUTO) 0.6 X10^3/uL (1.3-2.9); LYMPHOCYTES % (AUTO) 14.4 % (21.0-51.0); MEAN CORPUSCULAR HEMOGLOBIN 42.2 pg (27.0-34.0); MEAN CORPUSCULAR HGB CONC 36.1 g/dL (33.0-35.0); MEAN CORPUSCULAR VOLUME 116.9 fL (80.0-100.0); MEAN PLATELET VOLUME 6.8 fL (7.4-11.0); MONOCYTES # (AUTO) 0.3 x10^3/uL (0.3-0.8); MONOCYTES % (AUTO) 7.8 % (0.0-13.0); NEUTROPHILS # (AUTO) 2.9 x10^3/uL (2.2-4.8); NEUTROPHILS % (AUTO) 73.9 % (42.0-75.0); PLATELET COUNT 200 X10^3/uL (150.0-450.0); RED BLOOD COUNT 1.77 X10^6/uL (3.5-5.4); RED CELL DISTRIBUTION WIDTH 17.7 % (11.6-16.5)
[2024-08-21 05:53] LABS: ALANINE AMINOTRANSFERASE 10 Units/L (12-78); ALBUMIN 2.3 g/dL (3.4-5.0); ALKALINE PHOSPHATASE 89 Units/L (46-116); ASPARTATE AMINO TRANSFERASE 15 Units/L (15-37); BLOOD UREA NITROGEN 13 mg/dL (7-18); CALCIUM 8.7 mg/dL (8.5-10.1); CARBON DIOXIDE 26.2 mmol/L (21-32); CHLORIDE 102 mmol/L (98-107); COR CA(FOR HYPOALB) 10.1 mg/dL (8.5-10.1); CREATININE 0.97 mg/dL (0.55-1.02); GLUCOSE 81 mg/dL (65-99); POTASSIUM 3.6 mmol/L (3.5-5.1); SODIUM 134 mmol/L (136-145); TOTAL PROTEIN 5.7 g/dL (6.4-8.2); eGFR NON BLACK RACES 58 (>60)
[2024-08-21 06:32] LABS: PLATELET MORPHOLOGY COMMENT NORMAL (NORMAL)
[2024-08-21] MEDS ORDERED: CONSULT PHARMACY - POTASSIUM & MAGNESIUM XX SCH (07:00)
[2024-08-21] MEDS: K-DUR TAB 20 MEQ PO SCH (08:33)
[2024-08-21] MEDS: TOPROL XL PO SCH (08:35)
[2024-08-21] MEDS: NORVASC TAB 5 MG PO SCH (08:37)
[2024-08-22 06:24] LABS: HEMATOCRIT 23.6 % (36.0-47.0); HEMOGLOBIN 8.2 g/dL (12.0-16.0)
[2024-08-22] MEDS ORDERED: CONSULT PHARMACY - POTASSIUM & MAGNESIUM XX SCH (07:00)
[2024-08-22] MEDS: K-DUR TAB 20 MEQ PO SCH (08:17)
[2024-08-22] MEDS: MILK OF MAGNESIA PO PRN (08:20)
--- NOTE | 2024-08-22 17:49 | PCM.PROG ---
Progress Note Progress Note for Day of Date of Exam: 08/22/24 Subjective Subjective: PT IS 84 WF, SWING BED THERAPY DUE TO EXTENDED ILLNESS CAUSING WEAKNESS WITH MULTPLE RECENT FALLS. PT HAS A SCARAL FRACTURE REQUIRING PAIN CONTROL. PT SPRAINED HER LEFT ANKLE ONE WEEK AGO AND HAD A XRAY NEGATIVE FOR FRACTURE AT THAT TIME. PT HAS HAD AN RANDALL WRAP AND REPORT SHE CAN PUT PRESSURE ON LEFT TOES BUT NOT HEEL, BUT SLOW IMPROVEMENT.PT IS WORKING WITH PT. BRUSING TO TOP OF FOOT THIS AM. PLAN TO OBTAIN MRI. HER HOME MEDICATIONS FOR HTN AND POLYCYTHEMIA HAVE BEEN CONTINUED. PLAN TO OBTAIN ROUTINE LABS PER SWING BED. Past Medical Family Social History Allergies: Allergies Sulfa (Sulfonamide Antibiotics) [SULFA] Allergy (Verified 08/08/24 12:34) RASH Vital Signs and I&O's Vital Signs: Vital Signs Respiratory Rate 20 Respiratory Rate 18 Intake and Output: Intake & Output 08/20/24 08/21/24 08/22/24 08/23/24 11:59 11:59 11:59 11:59 Intake Total 2111 660 / 660 301 / 301 800 / 800 Balance 2111 660 / 660 301 / 301 800 / 800 Physical Exam Oriented: Normal Eyes: Normal Ear: Normal Nose: Normal Throat: Normal Respiratory: Diminished Cardiovascular: Normal : Normal Auscultation: Bowel Sounds: Normal Tenderness: Normal Skin: Decreased Turgur and Bruising Musculoskeletal: Ankle (LEFT), Back:Lumbar and Motor Deficit Psychiatric: Depression Affect: Depressed Speech Pattern: Clear and Appropriate Laboratory and Diagnostics 08/22/24 05:15 08/22/24 05:15 Labs: Laboratory WBC 4.0 X10^3/uL (3.6-10.0) 08/21/24 05:20 RBC 1.77 X10^6/uL (3.5-5.4) L 08/21/24 05:20 Hgb 8.2 g/dL (12.0-16.0) L 08/22/24 05:15 Hct 23.6 % (36.0-47.0) L 08/22/24 05:15 MCV 116.9 fL (80.0-100.0) H 08/21/24 05:20 MCH 42.2 pg (27.0-34.0) H 08/21/24 05:20 MCHC 36.1 g/dL (33.0-35.0) H 08/21/24 05:20 RDW 17.7 % (11.6-16.5) H 08/21/24 05:20 Plt Count 200 X10^3/uL (150.0-450.0) 08/21/24 05:20 Plt Count Comment Adequate (ADEQUATE) 08/21/24 05:20 MPV 6.8 fL (7.4-11.0) L 08/21/24 05:20 Neut % (Auto) 73.9 % (42.0-75.0) 08/21/24 05:20 Lymph % (Auto) 14.4 % (21.0-51.0) L 08/21/24 05:20 [place] % (Auto) 7.8 % (0.0-13.0) 08/21/24 05:20 Eos % (Auto) 3.0 % (0.9-2.9) H 08/21/24 05:20 Baso % (Auto) 0.9 % (0.2-1.0) 08/21/24 05:20 Neut # (Auto) 2.9 x10^3/uL (2.2-4.8) 08/21/24 05:20 Lymph # (Auto) 0.6 X10^3/uL (1.3-2.9) L 08/21/24 05:20 [place] # (Auto) 0.3 x10^3/uL (0.3-0.8) 08/21/24 05:20 Eos # (Auto) 0.1 x10^3/uL (0.0-0.2) 08/21/24 05:20 Baso # (Auto) 0.0 X10^3/uL (0.0-0.1) 08/21/24 05:20 Absolute Nucleated RBC 0.0 /100WBC 08/21/24 05:20 Plt Morphology Comment Normal (NORMAL) 08/21/24 05:20 RBC Morphology Abnormal (NORMAL) A 08/21/24 05:20 Anisocytosis Slight A 08/20/24 05:10 Macrocytosis 3+ A 08/21/24 05:20 Sodium 134 mmol/L (136-145) L 08/21/24 05:20 Corrected Sodium TNP 08/21/24 05:20 Potassium 3.7 mmol/L (3.5-5.1) 08/22/24 05:15 Chloride 102 mmol/L (98-107) 08/21/24 05:20 Carbon Dioxide 26.2 mmol/L (21-32) 08/21/24 05:20 BUN 13 mg/dL (7-18) 08/21/24 05:20 Creatinine 0.97 mg/dL (0.55-1.02) 08/21/24 05:20 Est GFR (MDRD) Af Amer > 60 (>60) 08/21/24 05:20 Est GFR (MDRD) Non-Af 58 (>60) L 08/21/24 05:20 Glucose 81 mg/dL (65-99) 08/21/24 05:20 Calcium 8.7 mg/dL (8.5-10.1) 08/21/24 05:20 Corrected Calcium 10.1 mg/dL (8.5-10.1) 08/21/24 05:20 Magnesium 2.0 mg/dL (2.0-2.9) 08/21/24 05:20 Total Bilirubin 0.40 mg/dL (0.2-1.0) 08/21/24 05:20 AST 15 Units/L (15-37) 08/21/24 05:20 ALT 10 Units/L (12-78) L 08/21/24 05:20 Alkaline Phosphatase 89 Units/L (46-116) 08/21/24 05:20 Total Protein 5.7 g/dL (6.4-8.2) L 08/21/24 05:20 Albumin 2.3 g/dL (3.4-5.0) L 08/21/24 05:20 Globulin 3.4 g/dL (2.5-4.5) 08/21/24 05:20 Albumin/Globulin Ratio 0.7 Ratio (1.1-2.1) L 08/21/24 05:20 Plan (1) Generalized weakness: Status: Acute Plan: PT FOR SWING BED THERAPY (2) Closed sacral fracture: Status: Acute
[2024-08-23 06:02] LABS: BASOPHILS % (AUTO) 1.3 % (0.2-1.0); EOSINOPHILS # (AUTO) 0.1 x10^3/uL (0.0-0.2); EOSINOPHILS % (AUTO) 3.8 % (0.9-2.9); HEMATOCRIT 22.6 % (36.0-47.0); LYMPHOCYTES # (AUTO) 0.5 X10^3/uL (1.3-2.9); LYMPHOCYTES % (AUTO) 16.5 % (21.0-51.0); MEAN CORPUSCULAR HEMOGLOBIN 41.9 pg (27.0-34.0); MEAN CORPUSCULAR HGB CONC 35.4 g/dL (33.0-35.0); MEAN CORPUSCULAR VOLUME 118.7 fL (80.0-100.0); MEAN PLATELET VOLUME 6.8 fL (7.4-11.0); MONOCYTES # (AUTO) 0.3 x10^3/uL (0.3-0.8); MONOCYTES % (AUTO) 9.5 % (0.0-13.0); NEUTROPHILS # (AUTO) 2.2 x10^3/uL (2.2-4.8); NEUTROPHILS % (AUTO) 68.9 % (42.0-75.0); PLATELET COUNT 226 X10^3/uL (150.0-450.0); RED CELL DISTRIBUTION WIDTH 18.7 % (11.6-16.5); WHITE BLOOD COUNT 3.2 X10^3/uL (3.6-10.0)
[2024-08-23 06:22] LABS: ALANINE AMINOTRANSFERASE 11 Units/L (12-78); ALBUMIN 2.5 g/dL (3.4-5.0); ALKALINE PHOSPHATASE 92 Units/L (46-116); ASPARTATE AMINO TRANSFERASE 14 Units/L (15-37); BLOOD UREA NITROGEN 14 mg/dL (7-18); CALCIUM 8.9 mg/dL (8.5-10.1); CARBON DIOXIDE 26.7 mmol/L (21-32); CHLORIDE 104 mmol/L (98-107); COR CA(FOR HYPOALB) 10.1 mg/dL (8.5-10.1); CREATININE 1.02 mg/dL (0.55-1.02); GLUCOSE 84 mg/dL (65-99); SODIUM 137 mmol/L (136-145); eGFR NON BLACK RACES 55 (>60)
[2024-08-23 06:55] LABS: ANISOCYTOSIS SLIGHT; PLATELET MORPHOLOGY COMMENT NORMAL (NORMAL)
--- NOTE | 2024-08-23 22:49 | MRI ---
EXAM:EXT LOWER JOINT W/O CONHISTORY:LEFT ANKLE PAIN, SWELLING ;COMPARISON:08/19/2024 radiographsTECHNIQUE:Multiplanar multisequence MRI of the left ankle was obtained utilizing standard departmental protocol.FINDINGS:Generalized subcutaneous edema about the ankle extending into the dorsum of the foot and at the posterior aspect of the ankle. No fracture. No abnormal bone marrow edema. No significant ankle joint effusion. No evidence for osteochondral talar dome lesion.No abnormal signal within the sinus tarsi. Moderate plantar calcaneal spur evident. Achilles tendon is intact, tendinitis not excluded given the surrounding edema. Proximal plantar fascia appears normal.The peroneus brevis and longus tendons are intact. Posterior tibialis, flexor hallucis longus and flexor digitorum longus tendons appear normal with small fluid surrounding the posterior tibialis tendon distally. The extensor tendons appear normal.The anterior and posterior distal tibiofibular ligaments are intact. Anterior and posterior talofibular ligaments are intact. Calcaneofibular ligament is intact. The deep and superficial deltoid ligaments appear intact including visualized tibiospring ligament complex.Mild edema is present within musculature nonspecific.IMPRESSION:1. Generalized subcutaneous edema about the ankle and extending adjacent to the Achilles tendon and at the dorsum of the foot. No fracture or abnormal bone marrow edema.2. Achilles tendinitis is considered given the surrounding edema.3. Moderate plantar calcaneal spur.4. Minimal tenosynovitis of the posterior tibialis tendon considered.5. Intact ligaments.THIS IS AN ELECTRONICALLY VERIFIED FINAL [id number]/2024 10:45 PM - Electronically signed by Clyde Suarez MD
[2024-08-27 06:02] LABS: BASOPHILS % (AUTO) 1.1 % (0.2-1.0); EOSINOPHILS # (AUTO) 0.1 x10^3/uL (0.0-0.2); EOSINOPHILS % (AUTO) 2.9 % (0.9-2.9); HEMATOCRIT 22.3 % (36.0-47.0); HEMOGLOBIN 7.9 g/dL (12.0-16.0); LYMPHOCYTES # (AUTO) 0.6 X10^3/uL (1.3-2.9); LYMPHOCYTES % (AUTO) 20.6 % (21.0-51.0); MEAN CORPUSCULAR HEMOGLOBIN 42.7 pg (27.0-34.0); MEAN CORPUSCULAR HGB CONC 35.4 g/dL (33.0-35.0); MEAN CORPUSCULAR VOLUME 120.4 fL (80.0-100.0); MEAN PLATELET VOLUME 6.7 fL (7.4-11.0); MONOCYTES # (AUTO) 0.2 x10^3/uL (0.3-0.8); NEUTROPHILS # (AUTO) 1.8 x10^3/uL (2.2-4.8); NEUTROPHILS % (AUTO) 66.4 % (42.0-75.0); PLATELET COUNT 241 X10^3/uL (150.0-450.0); RED BLOOD COUNT 1.85 X10^6/uL (3.5-5.4); WHITE BLOOD COUNT 2.7 X10^3/uL (3.6-10.0)
[2024-08-27 06:20] LABS: ALANINE AMINOTRANSFERASE 10 Units/L (12-78); ALBUMIN 2.5 g/dL (3.4-5.0); ALKALINE PHOSPHATASE 90 Units/L (46-116); ASPARTATE AMINO TRANSFERASE 21 Units/L (15-37); BLOOD UREA NITROGEN 13 mg/dL (7-18); CALCIUM 8.9 mg/dL (8.5-10.1); CARBON DIOXIDE 26.6 mmol/L (21-32); CHLORIDE 102 mmol/L (98-107); COR CA(FOR HYPOALB) 10.1 mg/dL (8.5-10.1); CREATININE 0.96 mg/dL (0.55-1.02); GLUCOSE 79 mg/dL (65-99); POTASSIUM 3.6 mmol/L (3.5-5.1); SODIUM 138 mmol/L (136-145); eGFR NON BLACK RACES 59 (>60)
[2024-08-27 06:34] LABS: PLATELET MORPHOLOGY COMMENT NORMAL (NORMAL)
[2024-08-27] MEDS: CONSULT PHARMACY - POTASSIUM & MAGNESIUM XX SCH (06:45)
[2024-08-27] MEDS: K-DUR TAB 20 MEQ PO SCH (08:40)
[2024-08-28] MEDS ORDERED: CONSULT PHARMACY - POTASSIUM & MAGNESIUM XX SCH (07:00)
[2024-08-28] MEDS: MAG-OX TAB PO SCH (08:11)
[2024-08-28] MEDS: K-DUR TAB 20 MEQ PO SCH (08:12)
[2024-08-29 06:33] LABS: BASOPHILS # (AUTO) 0.1 X10^3/uL (0.0-0.1); BASOPHILS % (AUTO) 1.5 % (0.2-1.0); EOSINOPHILS # (AUTO) 0.1 x10^3/uL (0.0-0.2); EOSINOPHILS % (AUTO) 1.8 % (0.9-2.9); HEMATOCRIT 23.3 % (36.0-47.0); HEMOGLOBIN 8.4 g/dL (12.0-16.0); LYMPHOCYTES # (AUTO) 0.5 X10^3/uL (1.3-2.9); LYMPHOCYTES % (AUTO) 12.4 % (21.0-51.0); MEAN CORPUSCULAR HEMOGLOBIN 43.1 pg (27.0-34.0); MEAN CORPUSCULAR HGB CONC 35.9 g/dL (33.0-35.0); MEAN PLATELET VOLUME 6.6 fL (7.4-11.0); MONOCYTES # (AUTO) 0.3 x10^3/uL (0.3-0.8); MONOCYTES % (AUTO) 7.6 % (0.0-13.0); NEUTROPHILS # (AUTO) 2.8 x10^3/uL (2.2-4.8); NEUTROPHILS % (AUTO) 76.7 % (42.0-75.0); PLATELET COUNT 256 X10^3/uL (150.0-450.0); RED BLOOD COUNT 1.95 X10^6/uL (3.5-5.4); WHITE BLOOD COUNT 3.7 X10^3/uL (3.6-10.0)
[2024-08-29 06:53] LABS: ALANINE AMINOTRANSFERASE 10 Units/L (12-78); ALBUMIN 2.6 g/dL (3.4-5.0); ALKALINE PHOSPHATASE 99 Units/L (46-116); ASPARTATE AMINO TRANSFERASE 18 Units/L (15-37); BLOOD UREA NITROGEN 13 mg/dL (7-18); CHLORIDE 105 mmol/L (98-107); COR CA(FOR HYPOALB) 10.1 mg/dL (8.5-10.1); CREATININE 1.08 mg/dL (0.55-1.02); GLUCOSE 82 mg/dL (65-99); MAGNESIUM 2.4 mg/dL (2.0-2.9); POTASSIUM 3.5 mmol/L (3.5-5.1); SODIUM 139 mmol/L (136-145); TOTAL PROTEIN 6.4 g/dL (6.4-8.2); eGFR NON BLACK RACES 51 (>60)
[2024-08-29 07:20] LABS: ANISOCYTOSIS 1+; PLATELET MORPHOLOGY COMMENT NORMAL (NORMAL)
[2024-08-30] MEDS: K-DUR TAB 20 MEQ PO SCH (08:51)
--- NOTE | 2024-08-30 17:15 | PCM.PROG ---
Progress Note Progress Note for Day of Date of Exam: 08/30/24 Subjective Subjective: PT IS 84 WF, SWING BED THERAPY DUE TO EXTENDED ILLNESS CAUSING WEAKNESS WITH MULTPLE RECENT FALLS. PT HAS A SCARAL FRACTURE REQUIRING PAIN CONTROL. PT SPRAINED HER LEFT ANKLE ONE WEEK AGO AND HAD A XRAY NEGATIVE FOR FRACTURE AT THAT TIME. PT HAS HAD AN RANDALL WRAP AND REPORT SHE CAN PUT PRESSURE ON LEFT TOES BUT NOT HEEL, BUT SLOW IMPROVEMENT. HER HOME MEDICATIONS FOR HTN AND POLYCYTHEMIA HAVE BEEN CONTINUED. PLAN TO OBTAIN ROUTINE LABS PER SWING BED. Past Medical Family Social History Allergies: Allergies Sulfa (Sulfonamide Antibiotics) [SULFA] Allergy (Verified 08/08/24 12:34) RASH Vital Signs and I&O's Vital Signs: Vital Signs Respiratory Rate 17 Respiratory Rate 18 Intake and Output: Intake & Output 08/28/24 08/29/24 08/30/24 08/31/24 11:59 11:59 11:59 11:59 Intake Total 1500 / 1500 1350 / 1350 1080 / 1080 Output Total 3 / 3 Balance 1500 / 1500 1350 / 1350 1077 / 1077 Physical Exam Oriented: Normal Eyes: Normal Ear: Normal Nose: Normal Throat: Normal Respiratory: Diminished Cardiovascular: Normal : Normal Auscultation: Bowel Sounds: Normal Tenderness: Normal Skin: Decreased Turgur and Bruising Musculoskeletal: Ankle (LEFT), Back:Lumbar and Motor Deficit Psychiatric: Depression Affect: Depressed Speech Pattern: Clear and Appropriate Laboratory and Diagnostics 08/29/24 05:20 08/29/24 05:20 Labs: Laboratory WBC 3.7 X10^3/uL (3.6-10.0) 08/29/24 05:20 RBC 1.95 X10^6/uL (3.5-5.4) L 08/29/24 05:20 Hgb 8.4 g/dL (12.0-16.0) L 08/29/24 05:20 Hct 23.3 % (36.0-47.0) L 08/29/24 05:20 MCV 120.0 fL (80.0-100.0) H 08/29/24 05:20 MCH 43.1 pg (27.0-34.0) H 08/29/24 05:20 MCHC 35.9 g/dL (33.0-35.0) H 08/29/24 05:20 RDW 20.0 % (11.6-16.5) H 08/29/24 05:20 Plt Count 256 X10^3/uL (150.0-450.0) 08/29/24 05:20 Plt Count Comment Adequate (ADEQUATE) 08/29/24 05:20 MPV 6.6 fL (7.4-11.0) L 08/29/24 05:20 Neut % (Auto) 76.7 % (42.0-75.0) H 08/29/24 05:20 Lymph % (Auto) 12.4 % (21.0-51.0) L 08/29/24 05:20 [place] % (Auto) 7.6 % (0.0-13.0) 08/29/24 05:20 Eos % (Auto) 1.8 % (0.9-2.9) 08/29/24 05:20 Baso % (Auto) 1.5 % (0.2-1.0) H 08/29/24 05:20 Neut # (Auto) 2.8 x10^3/uL (2.2-4.8) 08/29/24 05:20 Lymph # (Auto) 0.5 X10^3/uL (1.3-2.9) L 08/29/24 05:20 [place] # (Auto) 0.3 x10^3/uL (0.3-0.8) 08/29/24 05:20 Eos # (Auto) 0.1 x10^3/uL (0.0-0.2) 08/29/24 05:20 Baso # (Auto) 0.1 X10^3/uL (0.0-0.1) 08/29/24 05:20 Absolute Nucleated RBC 0.1 /100WBC 08/29/24 05:20 Plt Morphology Comment Normal (NORMAL) 08/29/24 05:20 RBC Morphology Abnormal (NORMAL) A 08/29/24 05:20 Anisocytosis 1+ A 08/29/24 05:20 Macrocytosis 3+ A 08/29/24 05:20 Sodium 139 mmol/L (136-145) 08/29/24 05:20 Corrected Sodium TNP 08/29/24 05:20 Potassium 3.5 mmol/L (3.5-5.1) 08/29/24 05:20 Chloride 105 mmol/L (98-107) 08/29/24 05:20 Carbon Dioxide 26.0 mmol/L (21-32) 08/29/24 05:20 BUN 13 mg/dL (7-18) 08/29/24 05:20 Creatinine 1.08 mg/dL (0.55-1.02) H 08/29/24 05:20 Est GFR (MDRD) Af Amer > 60 (>60) 08/29/24 05:20 Est GFR (MDRD) Non-Af 51 (>60) L 08/29/24 05:20 Glucose 82 mg/dL (65-99) 08/29/24 05:20 Calcium 9.0 mg/dL (8.5-10.1) 08/29/24 05:20 Corrected Calcium 10.1 mg/dL (8.5-10.1) 08/29/24 05:20 Magnesium 2.4 mg/dL (2.0-2.9) 08/29/24 05:20 Iron 74 ug/dL (50-175) 08/24/24 05:32 Total Bilirubin 0.50 mg/dL (0.2-1.0) 08/29/24 05:20 AST 18 Units/L (15-37) 08/29/24 05:20 ALT 10 Units/L (12-78) L 08/29/24 05:20 Alkaline Phosphatase 99 Units/L (46-116) 08/29/24 05:20 Total Protein 6.4 g/dL (6.4-8.2) 08/29/24 05:20 Albumin 2.6 g/dL (3.4-5.0) L 08/29/24 05:20 Globulin 3.8 g/dL (2.5-4.5) 08/29/24 05:20 Albumin/Globulin Ratio 0.7 Ratio (1.1-2.1) L 08/29/24 05:20 Stl Occult Blood (IFOB) Positive (NEGATIVE) A 08/29/24 12:00 Plan (1) Generalized weakness: Status: Acute Plan: PT FOR SWING BED THERAPY (2) Closed sacral fracture: Status: Acute
[2024-08-31 06:36] LABS: EOSINOPHILS # (AUTO) 0.1 x10^3/uL (0.0-0.2); EOSINOPHILS % (AUTO) 1.7 % (0.9-2.9); HEMATOCRIT 21.6 % (36.0-47.0); HEMOGLOBIN 7.8 g/dL (12.0-16.0); LYMPHOCYTES # (AUTO) 0.8 X10^3/uL (1.3-2.9); LYMPHOCYTES % (AUTO) 20.1 % (21.0-51.0); MEAN CORPUSCULAR HEMOGLOBIN 43.9 pg (27.0-34.0); MONOCYTES # (AUTO) 0.3 x10^3/uL (0.3-0.8); MONOCYTES % (AUTO) 7.7 % (0.0-13.0); NEUTROPHILS # (AUTO) 2.8 x10^3/uL (2.2-4.8); NEUTROPHILS % (AUTO) 69.5 % (42.0-75.0); PLATELET COUNT 244 X10^3/uL (150.0-450.0); RED BLOOD COUNT 1.77 X10^6/uL (3.5-5.4); RED CELL DISTRIBUTION WIDTH 21.1 % (11.6-16.5)
[2024-08-31 06:59] LABS: ALANINE AMINOTRANSFERASE 10 Units/L (12-78); ALBUMIN 2.5 g/dL (3.4-5.0); ALKALINE PHOSPHATASE 94 Units/L (46-116); ASPARTATE AMINO TRANSFERASE 19 Units/L (15-37); BLOOD UREA NITROGEN 15 mg/dL (7-18); CALCIUM 8.8 mg/dL (8.5-10.1); CARBON DIOXIDE 26.5 mmol/L (21-32); CHLORIDE 104 mmol/L (98-107); CREATININE 1.23 mg/dL (0.55-1.02); GLUCOSE 76 mg/dL (65-99); SODIUM 138 mmol/L (136-145); TOTAL PROTEIN 5.8 g/dL (6.4-8.2); eGFR NON BLACK RACES 44 (>60)
[2024-08-31 07:39] LABS: ANISOCYTOSIS 1+; PLATELET MORPHOLOGY COMMENT NORMAL (NORMAL); SCHISTOCYTES SLIGHT; STOMATOCYTES SLIGHT
[2024-09-03 06:22] LABS: BASOPHILS % (AUTO) 0.9 % (0.2-1.0); EOSINOPHILS % (AUTO) 1.4 % (0.9-2.9); HEMATOCRIT 21.9 % (36.0-47.0); HEMOGLOBIN 7.8 g/dL (12.0-16.0); LYMPHOCYTES # (AUTO) 0.5 X10^3/uL (1.3-2.9); LYMPHOCYTES % (AUTO) 14.7 % (21.0-51.0); MEAN CORPUSCULAR HEMOGLOBIN 44.3 pg (27.0-34.0); MEAN CORPUSCULAR HGB CONC 35.7 g/dL (33.0-35.0); MEAN PLATELET VOLUME 6.7 fL (7.4-11.0); MONOCYTES # (AUTO) 0.3 x10^3/uL (0.3-0.8); MONOCYTES % (AUTO) 7.3 % (0.0-13.0); NEUTROPHILS # (AUTO) 2.7 x10^3/uL (2.2-4.8); NEUTROPHILS % (AUTO) 75.7 % (42.0-75.0); PLATELET COUNT 261 X10^3/uL (150.0-450.0); RED BLOOD COUNT 1.76 X10^6/uL (3.5-5.4); RED CELL DISTRIBUTION WIDTH 21.4 % (11.6-16.5); WHITE BLOOD COUNT 3.5 X10^3/uL (3.6-10.0)
[2024-09-03 06:38] LABS: ALANINE AMINOTRANSFERASE 11 Units/L (12-78); ALBUMIN 2.5 g/dL (3.4-5.0); ALKALINE PHOSPHATASE 96 Units/L (46-116); ASPARTATE AMINO TRANSFERASE 16 Units/L (15-37); BLOOD UREA NITROGEN 13 mg/dL (7-18); CALCIUM 8.8 mg/dL (8.5-10.1); CHLORIDE 102 mmol/L (98-107); CREATININE 1.05 mg/dL (0.55-1.02); GLUCOSE 78 mg/dL (65-99); POTASSIUM 3.7 mmol/L (3.5-5.1); SODIUM 136 mmol/L (136-145); TOTAL PROTEIN 6.1 g/dL (6.4-8.2); eGFR NON BLACK RACES 53 (>60)
[2024-09-03 06:52] LABS: PLATELET MORPHOLOGY COMMENT NORMAL (NORMAL)
[2024-09-03 06:53] LABS: ANISOCYTOSIS 1+
[2024-09-03] MEDS ORDERED: CONSULT PHARMACY - POTASSIUM & MAGNESIUM XX SCH (07:00)
[2024-09-03] MEDS: K-DUR TAB 20 MEQ PO SCH (08:14)
[2024-09-03] MEDS ORDERED: ATIVAN TAB 1 MG PO PRN (08:51)
[2024-09-03] MEDS: LASIX PO STA (09:41)
[2024-09-04 06:01] LABS: BASOPHILS % (AUTO) 1.2 % (0.2-1.0); EOSINOPHILS % (AUTO) 1.3 % (0.9-2.9); HEMATOCRIT 20.7 % (36.0-47.0); HEMOGLOBIN 7.3 g/dL (12.0-16.0); LYMPHOCYTES # (AUTO) 0.5 X10^3/uL (1.3-2.9); LYMPHOCYTES % (AUTO) 14.8 % (21.0-51.0); MEAN CORPUSCULAR HEMOGLOBIN 44.3 pg (27.0-34.0); MEAN CORPUSCULAR HGB CONC 35.3 g/dL (33.0-35.0); MEAN CORPUSCULAR VOLUME 125.3 fL (80.0-100.0); MEAN PLATELET VOLUME 7.1 fL (7.4-11.0); MONOCYTES # (AUTO) 0.3 x10^3/uL (0.3-0.8); MONOCYTES % (AUTO) 7.9 % (0.0-13.0); NEUTROPHILS # (AUTO) 2.6 x10^3/uL (2.2-4.8); NEUTROPHILS % (AUTO) 74.8 % (42.0-75.0); PLATELET COUNT 241 X10^3/uL (150.0-450.0); RED BLOOD COUNT 1.65 X10^6/uL (3.5-5.4); RED CELL DISTRIBUTION WIDTH 21.7 % (11.6-16.5); WHITE BLOOD COUNT 3.5 X10^3/uL (3.6-10.0)
[2024-09-04 06:22] LABS: ALANINE AMINOTRANSFERASE 8 Units/L (12-78); ALBUMIN 2.5 g/dL (3.4-5.0); ALKALINE PHOSPHATASE 88 Units/L (46-116); ASPARTATE AMINO TRANSFERASE 16 Units/L (15-37); BLOOD UREA NITROGEN 14 mg/dL (7-18); CALCIUM 8.6 mg/dL (8.5-10.1); CARBON DIOXIDE 24.7 mmol/L (21-32); CHLORIDE 103 mmol/L (98-107); COR CA(FOR HYPOALB) 9.8 mg/dL (8.5-10.1); CREATININE 1.28 mg/dL (0.55-1.02); GLUCOSE 83 mg/dL (65-99); POTASSIUM 3.8 mmol/L (3.5-5.1); SODIUM 136 mmol/L (136-145); TOTAL PROTEIN 5.8 g/dL (6.4-8.2); eGFR NON BLACK RACES 42 (>60)
[2024-09-04 06:55] LABS: ANISOCYTOSIS 1+; PLATELET MORPHOLOGY COMMENT NORMAL (NORMAL)
[2024-09-04] MEDS: K-DUR TAB 20 MEQ PO SCH (08:42)
[2024-09-04] MEDS: NS 250 ML IV 250 ML IV ONE (21:23)
[2024-09-04 22:03] VITALS: RESP 18
[2024-09-05 05:20] LABS: EOSINOPHILS # (AUTO) 0.1 x10^3/uL (0.0-0.2); MONOCYTES # (AUTO) 0.3 x10^3/uL (0.3-0.8); PLATELET COUNT 226 X10^3/uL (150.0-450.0)
[2024-09-05 05:28] LABS: BASOPHILS % (AUTO) 1.1 % (0.2-1.0); EOSINOPHILS % (AUTO) 1.6 % (0.9-2.9); HEMATOCRIT 25.5 % (36.0-47.0); LYMPHOCYTES # (AUTO) 0.6 X10^3/uL (1.3-2.9); LYMPHOCYTES % (AUTO) 19.3 % (21.0-51.0); MEAN CORPUSCULAR HEMOGLOBIN 39.1 pg (27.0-34.0); MEAN CORPUSCULAR HGB CONC 35.1 g/dL (33.0-35.0); MEAN CORPUSCULAR VOLUME 111.2 fL (80.0-100.0); MEAN PLATELET VOLUME 6.6 fL (7.4-11.0); MONOCYTES % (AUTO) 9.5 % (0.0-13.0); NEUTROPHILS # (AUTO) 2.2 x10^3/uL (2.2-4.8); NEUTROPHILS % (AUTO) 68.5 % (42.0-75.0); RED CELL DISTRIBUTION WIDTH 30.2 % (11.6-16.5); WHITE BLOOD COUNT 3.2 X10^3/uL (3.6-10.0)
[2024-09-05 05:39] LABS: ALANINE AMINOTRANSFERASE 8 Units/L (12-78); ALBUMIN 2.4 g/dL (3.4-5.0); ALKALINE PHOSPHATASE 85 Units/L (46-116); ASPARTATE AMINO TRANSFERASE 13 Units/L (15-37); BLOOD UREA NITROGEN 13 mg/dL (7-18); CALCIUM 8.7 mg/dL (8.5-10.1); CHLORIDE 104 mmol/L (98-107); CREATININE 1.15 mg/dL (0.55-1.02); GLUCOSE 71 mg/dL (65-99); POTASSIUM 3.9 mmol/L (3.5-5.1); SODIUM 137 mmol/L (136-145); TOTAL PROTEIN 5.6 g/dL (6.4-8.2); eGFR NON BLACK RACES 48 (>60)
[2024-09-05] MEDS: LASIX IVP ONE ×2 (06:20→06:21)
[2024-09-05 06:32] LABS: ANISOCYTOSIS 3+; PLATELET MORPHOLOGY COMMENT NORMAL (NORMAL)
[2024-09-05 08:25] VITALS: PULSE 81; TEMP 97.8; O2SAT 97
[2024-09-05 09:51] VITALS: BP 196/83
== END 2024-09-05 11:30 | disposition home health service (06) | DRG 552 ==
LOC: MED/SURG 10:00
PROVIDERS: ADMIT Internal Medicine; ATTEND Internal Medicine
DX: R29.6 Repeated falls; M77.32 Calcaneal spur, left foot; D75.1 Secondary polycythemia; R53.1 Weakness; S83.8X2A Sprain of other specified parts of left knee, initial encounter; Z47.89 Encounter for other orthopedic aftercare; S32.10XA Unspecified fracture of sacrum, initial encounter for closed fracture; Z51.89 Encounter for other specified aftercare; R29.2 Abnormal reflex; M76.62 Achilles tendinitis, left leg; W18.39XA Other fall on same level, initial encounter; R41.82 Altered mental status, unspecified; S93.492A Sprain of other ligament of left ankle, initial encounter; I10 Essential (primary) hypertension